=== PATIENT | female | born 2000 | race Caucasian/White ===

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

== ENCOUNTER 2018-02-01 12:37 | Outpatient (CLI) | payer BC, MEDICAID ==
[~2018-02-01] VITALS: Ht 175.3 cm; Wt 83.0 kg
[2018-02-01 13:10] VITALS: BP 133/68
--- NOTE | 2018-02-02 22:20 | Physician Query-Final Dx ---
CHERRIE BLAIR 02/02/18 2220: Clinic Account Progress/Dx Physician Query: Please give diagnosis Please provide diagnosis and weeks of gestation. Date of Service Feb 01, 2018 at 12:37 CHRIS WHEELER MD 02/03/18 0910: Clinic Account Progress/Dx DIAGNOSIS: Diagnosis 34 weeks gestation Pelvic pressure CHERRIE BLAIR Feb 02, 2018 22:20 CHRIS WHEELER MD Feb 03, 2018 09:10
== END 2018-02-01 14:20 | disposition home or self-care (01) ==
LOC: WSo 12:37 → LDRP 12:38 → WSo 14:20
PROVIDERS: ATTEND Family Medicine
DX: R10.2 Pelvic and perineal pain (principal); Z3A.34 34 weeks gestation of pregnancy
CPT/HCPCS: 99213

== ENCOUNTER 2018-02-03 16:46 | Outpatient (CLI) | payer BC, MEDICAID ==
[~2018-02-03] VITALS: Ht 175.3 cm; Wt 83.7 kg
[2018-02-03 17:15] VITALS: BP 131/62
--- NOTE | 2018-02-04 21:42 | Physician Query-Final Dx ---
CHERRIE BLAIR 02/04/18 2142: Clinic Account Progress/Dx Physician Query: Please give diagnosis Please provide diagnosis and weeks of gestation. Date of Service Feb 03, 2018 at 16:46 CHRIS WHEELER MD 02/05/18 1325: Clinic Account Progress/Dx DIAGNOSIS: Diagnosis 34 weeks gestation Possible leaking fluid CHERRIE BLAIR Feb 04, 2018 21:42 CHRIS WHEELER MD Feb 05, 2018 13:25
== END 2018-02-03 18:47 | disposition home or self-care (01) ==
LOC: WSo 16:46 → LDRP 16:47 → WSo 18:47
PROVIDERS: ATTEND Family Medicine
DX: O99.89 Other specified diseases and conditions complicating pregnancy, childbirth and the puerperium (principal); N89.8 Other specified noninflammatory disorders of vagina; Z3A.34 34 weeks gestation of pregnancy
CPT/HCPCS: 99214

== ENCOUNTER → 2018-02-09 | Outpatient (CLI) | payer BC, MEDICAID ==
--- NOTE | 2018-02-09 15:44 | Diagnostic Imaging Report ---
INDICATION: Evaluate growth and amniotic fluid index. TECHNIQUE: Multiple real-time grayscale images were obtained over the gravid uterus. COMPARISON: 10/24/2017. FINDINGS: There is a single live fetus in a cephalic presentation. heart rate was recorded at 144 beats per minute. Placenta is posterior. Amniotic fluid index is 10.5 cm. No complicating features are seen. Biometrical measurements are as follows: Biparietal 8.77 cm, age 35 weeks 3 days. Head circumference 31.52 cm, age 35 weeks 3 days. Abdominal circumference 33.49 cm, age 37 weeks 3 days. Femur length 6.82 cm, age 35 weeks 1 days. Sonographic estimate age: 35 weeks 6 days. Sonographic estimated date of delivery: 03/10/2018. Estimated Weight: 2921 gm (+/- 427 gm). LMP percentile: 72%. heart rate: 144 beats per minute. number: 1 of 1. IMPRESSION: Single live IUP at approximately 36 weeks gestational age demonstrating normal interval growth when compared with prior ultrasound. No complicating feature is seen. Dictated by: Dictated on workstation # [id number]
== END ==
LOC: RAD 12:48
PROVIDERS: ATTEND Family Medicine
DX: O16.3 Unspecified maternal hypertension, third trimester (principal); Z3A.36 36 weeks gestation of pregnancy
CPT/HCPCS: 76816

== ENCOUNTER 2018-03-15 08:15 | Inpatient (IN) | payer BC, MEDICAID ==
[~2018-03-15] VITALS: Ht 175.3 cm; Wt 83.7 kg
[2018-03-15] MEDS ORDERED: D5 LR IV SOLUTION 1,000 ML IV ONE (19:26)
[2018-03-15] MEDS: D5 LR IV SOLUTION 1,000 ML IV SCH (19:30)
[2018-03-15] MEDS ORDERED: LACTATED RINGERS 1,000 ML IV SCH (19:49)
--- OUTSIDE RECORDS SUMMARY | 2018-03-15 19:57 | XMS REPORT ---
Author Author MADONNA JOHNSON Organization [facility] Address [address] [place] [address] Care Team Providers Care [employer] Name Role Phone MADONNA JOHNSON Unavailable PROBLEMS Type Condition ICD9-CM Code RNP37-HZ Code Onset Dates Condition Status SNOMED Code Problem care, first in third trimester Z34.03 Active 618768384 Problem Elevated blood pressure affecting in third trimester, antepartum O16.3 Active 73989685 Problem Unspecified blood type, Rh negative Z67.91 Active 022609683 ALLERGIES Substance Reaction Event Type Date Status Sulfacetamide Sodium Unknown Drug Allergy Nov, Active ENCOUNTERS Encounter Location Date Diagnosis [facility] [id number] [place] [address] 42750- 7280 Feb, [facility] [address] [address] Feb, care, first in third trimester Z34.03 and 39 weeks gestation of Z3A.39 [place] [id number] [place] [address] 12268- 5149 Feb, care, first in third trimester Z34.03 ; Encounter for immunization Z23 and 39 weeks gestation of Z3A.39 [facility] [id number] [place] [address] 48284- 8742 Feb, [place] [id number] [place] [address] 61939- 1831 Feb, care, first in third trimester Z34.03 and 38 weeks gestation of Z3A.38 [place] [id number] [place] [address] 88550- 6378 Jan, Third trimester Z34.93 and 37 weeks gestation of Z3A.37 [place] [address] [place] [address] 02707- 8249 19 Jan, 2018 Third trimester Z34.93 ; 36 weeks gestation of Z3A.36 and Proteinuria affecting in third trimester O12.13 [place] [id number] [place] [address] 42937- 5189 13 Jan, 2018 [place] [id number] [place] [address] 66921- 6916 13 Jan, 2018 care, first in third trimester Z34.03 and 35 weeks gestation of Z3A.35 [place] [id number] [place] [address] 55410- 3074 11 Jan, 2018 [place] [id number] [place] [address] 64500- 8287 Jan, [place] [id number] [place] [address] 75882- 6925 05 Jan, 2018 care, first in third trimester Z34.03 ; 34 weeks gestation of Z3A.34 and Elevated blood pressure affecting in third trimester, antepartum O16.3 [place] [id number] [place] [address] 55605- 9272 Dec, Third trimester Z33.1 and 32 weeks gestation of Z3A.32 [place] [id number] [place] [address] 02781- 3005 Dec, [place] [id number] [place] [address] 90553- 8617 Dec, [place] [id number] [place] [address] 21233- 5062 Dec, 30 weeks gestation of Z3A.30 ; Elevated blood pressure affecting in third trimester, antepartum O16.3 ; Unspecified blood type, Rh negative Z67.91 ; Supervision of other high risk pregnancies, unspecified trimester O09.899 and Encounter for immunization Z23 [place] [address] [place] [address] Nov, 28 weeks gestation of Z3A.28 and Third trimester Z34.93 [place] [address] [address] 9[address] Nov, [place] [address] [address] 0885 Nov, care, first in second trimester Z34.02 and 25 weeks gestation of Z3A.25 [place] [address] [place] [address] 2547 Oct, [place] [id number] [place] [address] 65983- 6705 Oct, care, first in second trimester Z34.02 and 21 weeks gestation of Z3A.21 [place] [id number] [place] [address] 12257- 1698 September, Evaluate anatomy not seen on prior sonogram Z04.8 [place] [address] [place] [address] 89099- 6229 September, [place] [address] [place] [address] 43831- 8925 September, care, first in second trimester Z34.02 ; 17 weeks gestation of Z3A.17 and Urinary tract infection in mother during first trimester of O23.41 [place] [address] [place] [address] 00328- 5214 Aug, Other specified disorders of amniotic fluid and membranes, first trimester, not applicable or unspecified O41.8X10 ; Other antepartum hemorrhage, first trimester O46.8X1 and 12 weeks gestation of Z3A.12 [place] [address] [address] 1238 Aug, Urinary tract infection in mother during first trimester of O23.41 [place] [address] [place] [address] 79124- 5063 Aug, care, first in first trimester Z34.01 ; Urinary tract infection in mother during first trimester of O23.41 and 11 weeks gestation of Z3A.11 [place] [address] [place] [address] 64437- 1505 Jul, [place] [id number] [place] [address] 80446- 2950 Jul, care, first in first trimester Z34.01 and 7 weeks gestation of Z3A.01 [place] [id number] [place] [address] 16456- 9045 Jul, [place] [id number] [place] [address] 81148- 7018 Jun, Screening for deficiency anemia Z13.0 [place] [id number] [place] [address] 01856- 9092 Jun, [place] [id number] [place] [address] 32781- 1106 Jun, [place] [id number] [place] [address] 12445- 0591 Jun, [place] [id number] [place] [address] 55300- 6283 Jun, test positive Z32.01 [facility] [place] [id number] [place] [address] 99618 -4068 05 Jun, 2016 Cough R05 and Influenza A J10.1 [place] [id number] [place] [address] 66273- 3911 Jan, Encounter for immunization Z23 [place] [id number] [place] [address] 93922- 2784 Jan, Visit for TB skin test Z11.1 and Screening for tuberculosis Z11.1 [facility] [id number] [place] [address] 36201 -2018 Dec, Right ankle injury, initial encounter S99.911A [facility] [id number] [place] [address] 52678 -7106 Nov, Abscess L02.91 [facility] [id number] [place] [address] 31033- 4570 Jul, Microscopic hematuria R31.2 [facility] [address] 33332- 2849 Jun, Vomiting, unspecified R11.10 ; Viral syndrome B34.9 ; Microscopic hematuria R31.2 and Proteinuria R80.9 [place] [address] 12943- 4671 Aug, [facility] [address] 94966- 2647 Aug, [facility] [address] 38341- 8515 Feb, [facility] [address] 28185- 3860 Feb, [facility] [id number] [place] [address] 64230- 9675 May, [facility] [id number] [place] [address] 83829- 1375 May, [facility] [address] 72849- 9877 Aug, IMMUNIZATIONS No Known Immunizations SOCIAL HISTORY Never Assessed REASON FOR VISIT OB 2wk f/u-tcuppettRn PLAN OF CARE Activity Details Follow Up 2 Weeks Reason: VITAL SIGNS Height 70 in 2017-12-17 Weight 175.1 lbs 2017-12-17 Temperature 98.2 degrees Fahrenheit 2017-12-17 Heart Rate 92 bpm 2017-12-17 Respiratory Rate 20 2017-12-17 BMI 25.124 kg/m2 2017-12-17 Blood pressure systolic 108 mmHg 2017-12-17 Blood pressure diastolic 70 mmHg 2017-12-17 MEDICATIONS Medication Instructions Dosage Frequency Start Date End Date Duration Status Cetirizine HCl 10 MG Not-Taking Ferrous Sulfate 325 (65 Fe) MG Orally Once a day 1 tablet 24h Active Vitamins - (Dis) Active RESULTS Name Result Date Reference Range UA OB DIP (IN HOUSE) 2017-12-17 Glucose negative Protein negative PROCEDURES Procedure Date Ordered Result Body Site URINE-NO MICRO December 17, 2017 INSTRUCTIONS MEDICATIONS ADMINISTERED No Known Medications MEDICAL (GENERAL) HISTORY Type Description Date Hospitalization History Pneumonia 05/2000 Hospitalization History Heart Evaluation at [facility] 05/2009 Hospitalization History ER for hemmorrhaging 08/2017
--- OUTSIDE RECORDS SUMMARY | 2018-03-15 19:58 | XMS REPORT ---
Author Author CHRIS WHEELER [facility] Address [address] [place] [address] Care Team Providers Care Language Pathologist Name Role Phone CHRIS WHEELER Unavailable PROBLEMS Type Condition ICD9-CM Code [id number] Code Onset Dates Condition Status SNOMED Code Problem care, first in third trimester Z34.03 Active 836534876 Problem Elevated blood pressure affecting in third trimester, antepartum O16.3 Active 79823181 Problem Unspecified blood type, Rh negative Z67.91 Active 430453851 ALLERGIES No Information ENCOUNTERS Encounter Location Date Diagnosis [place] [address] [address]- 9220 15 Feb, 2018 care, first in third trimester Z34.03 [place] [address] 51938- 5611 11 Feb, 2018 care, first in third trimester Z34.03 ; Encounter for immunization Z23 and 39 weeks gestation of Z3A.39 [place] [address] [place] [id number] [place] [address] 61945- 8364 Feb, [place] [address] 13190- 8535 Feb, care, first in third trimester Z34.03 and 38 weeks gestation of Z3A.38 [place] [address] 66240- 3565 26 Jan, 2018 Third trimester Z34.93 and 37 weeks gestation of Z3A.37 [place] [address] [place] [id number] [place] [address] 11689- 1225 Jan, Third trimester Z34.93 ; 36 weeks gestation of Z3A.36 and Proteinuria affecting in third trimester O12.13 [place] [address] [place] [address] 71178- 0301 Jan, [place] [address] [place] [address] [id number] [place] [address] 13144- 6176 Jan, care, first in third trimester Z34.03 and 35 weeks gestation of Z3A.35 [place] [address] [address] [id number] [place] [address] 14646- 2635 Jan, [place] [address] [address] [id number] [place] [address] 40480- 0649 Jan, [place] [address] [address] [id number] [place] [address] 12582- 3340 Jan, care, first in third trimester Z34.03 ; 34 weeks gestation of Z3A.34 and Elevated blood pressure affecting in third trimester, antepartum O16.3 [place] [id number] [place] [address] 06912- 2823 Dec, Third trimester Z33.1 and 32 weeks gestation of Z3A.32 [place] [address] [id number] [place] [address] 73297- 1110 Dec, [place] [address] [id number] [place] [address] 85632- 6335 Dec, [place] [address] [id number] [place] [address] 25527- 1876 Dec, 30 weeks gestation of Z3A.30 ; Elevated blood pressure affecting in third trimester, antepartum O16.3 ; Unspecified blood type, Rh negative Z67.91 ; Supervision of other high risk pregnancies, unspecified trimester O09.899 and Encounter for immunization Z23 [place] [address] [id number] [place] [address] 81681- 0656 Nov, 28 weeks gestation of Z3A.28 and Third trimester Z34.93 [place] [address] [id number] [place] [address] 09715- 5357 Nov, [place] [address] [place] [id number] [address]- 0906 Nov, care, first in second trimester Z34.02 and 25 weeks gestation of Z3A.25 [place] [address] [address]- 8699 Oct, [place] [address] [address]- 5569 Oct, care, first in second trimester Z34.02 and 21 weeks gestation of Z3A.21 [place] [address] [address]- 1605 September, Evaluate anatomy not seen on prior sonogram Z04.8 [place] [address] [address]- 1943 September, [place] [address] [address]- 0961 September, care, first in second trimester Z34.02 ; 17 weeks gestation of Z3A.17 and Urinary tract infection in mother during first trimester of O23.41 [place] [address] [id number] [address]- 5287 Aug, Other specified disorders of amniotic fluid and membranes, first trimester, not applicable or unspecified O41.8X10 ; Other antepartum hemorrhage, first trimester O46.8X1 and 12 weeks gestation of Z3A.12 [place] [address] [id number] [address]- 7941 Aug, Urinary tract infection in mother during first trimester of O23.41 [place] [address] [address]- 6003 Aug, care, first in first trimester Z34.01 ; Urinary tract infection in mother during first trimester of O23.41 and 11 weeks gestation of Z3A.11 [place] [address] [place] [address] 08567- 8794 Jul, [facility] [place] [id number] [place] [address] 93690- 4077 Jul, care, first in first trimester Z34.01 and 7 weeks gestation of Z3A.01 [facility] [place] [address] [id number] [place] [address] 41861- 7822 Jul, [facility] [place] [address] [id number] [place] [address] 35600- 5509 Jun, Screening for deficiency anemia Z13.0 [place] [address] 35561- 0082 Jun, [place] [address] [place] [id number] [place] [address] 53337- 1984 Jun, [place] [address] [place] [address] [id number] [place] [address] 69971- 3580 Jun, [facility] [place] [address] [id number] [place] [address] 22950- 7726 14 Jun, 2017 test positive Z32.01 [facility] IN [place] [address] [place] [address] [id number] [place] [address] 10858 -3305 05 Jun, 2016 Cough R05 and Influenza A J10.1 [place] [address] [id number] [place] [address] 99047- 5922 Jan, Encounter for immunization Z23 [place] [address] [id number] [place] [address] 14192- 5114 Jan, Visit for TB skin test Z11.1 and Screening for tuberculosis Z11.1 [facility] [place] [address] [id number] [place] [address] 18145 -7318 Dec, Right ankle injury, initial encounter S99.911A [facility] [place] [address] [id number] [place] [address] 68758 -0467 Nov, Abscess L02.91 [place] [address] [address]- 9143 Jul, Microscopic hematuria R31.2 [place] [address] [id number] [place] [address] 05892- 2644 29 Jun, 2015 Vomiting, unspecified R11.10 ; Viral syndrome B34.9 ; Microscopic hematuria R31.2 and Proteinuria R80.9 [place] [address] [id number] [place] [address] 48559- 4683 Aug, [place] [address] [id number] [place] [address] 56395- 0810 Aug, [place] [address] [id number] [place] [address] 32420- 9952 Feb, [place] [address] 41666- 2574 Feb, [place] [address] [place] [address] [id number] [place] [address] 92705- 2286 May, [place] [address] [place] [address] [id number] [place] [address] 11665- 6257 May, [place] [address] [place] [address] [id number] [place] [address] 45178- 9357 Aug, IMMUNIZATIONS No Known Immunizations SOCIAL HISTORY Never Assessed REASON FOR VISIT OB 1wk f/u, third trimester, urine ob dip, flu shot to be given at her place of employment, cervix check-[place]woods PLAN OF CARE Activity Details Follow Up 1 Week Reason: VITAL SIGNS Height 70 in 2018-03-05 Weight 189 lbs 2018-03-05 Temperature 98.6 degrees Fahrenheit 2018-03-05 Heart Rate 112 bpm 2018-03-05 Respiratory Rate 20 2018-03-05 BMI 27.119 kg/m2 2018-03-05 Blood pressure systolic 124 mmHg 2018-03-05 Blood pressure diastolic 68 mmHg 2018-03-05 MEDICATIONS Medication Instructions Dosage Frequency Start Date End Date Duration Status Ferrous Sulfate 325 (65 Fe) MG Orally Once a day 1 tablet 24h Active Vitamins - (Dis) Active Zofran 4 MG Orally every 4 hours 1 tablet as needed 4h Dec, Active RESULTS Name Result Date Reference Range UA OB DIP (IN HOUSE) 2018-03-05 Glucose negative Protein trace PROCEDURES Procedure Date Ordered Result Body Site URINE-NO MICRO Mar 05, 2018 INSTRUCTIONS MEDICATIONS ADMINISTERED No Known Medications MEDICAL (GENERAL) HISTORY Type Description Date Hospitalization History Pneumonia 05/2000 Hospitalization History Heart Evaluation at [facility] 05/2009 Hospitalization History ER for hemmorrhaging 08/2017
--- OUTSIDE RECORDS SUMMARY | 2018-03-15 19:58 | XMS REPORT ---
Author Author CHRIS WHEELER [facility] Address [address] [place] [address] Care Team Providers Care Group Cio Name Role Phone CHRIS WHEELER Unavailable PROBLEMS Type Condition ICD9-CM Code VMZ37-ZQ Code Onset Dates Condition Status SNOMED Code Problem care, first in third trimester Z34.03 Active 797413070 Problem Elevated blood pressure affecting in third trimester, antepartum O16.3 Active 28385985 Problem Unspecified blood type, Rh negative Z67.91 Active 025227152 ALLERGIES No Information ENCOUNTERS Encounter Location Date Diagnosis [place] [id number] [place] [address] 91722- 5626 Feb, [place] [id number] [place] [address] 94935- 9305 Feb, care, first in third trimester Z34.03 and Encounter for immunization Z23 [place] [id number] [place] [address] 44437- 6657 Feb, [place] [id number] [place] [address] 89911- 4362 Feb, care, first in third trimester Z34.03 and 38 weeks gestation of Z3A.38 [place] [id number] [place] [address] 80721- 1201 Jan, Third trimester Z34.93 and 37 weeks gestation of Z3A.37 [place] [id number] [place] [address] 64206- 2426 Jan, Third trimester Z34.93 ; 36 weeks gestation of Z3A.36 and Proteinuria affecting in third trimester O12.13 [place] [address] [place] [address]- 4388 Jan, [facility] [place] [address] [address] 39[address] Jan, care, first in third trimester Z34.03 and 35 weeks gestation of Z3A.35 [facility] [place] [address] [address] 4882 Jan, [facility] [place] [id number] [place] [address] 79983- 4763 Jan, [facility] [place] [id number] [place] [address] 99326- 6934 Jan, care, first in third trimester Z34.03 ; 34 weeks gestation of Z3A.34 and Elevated blood pressure affecting in third trimester, antepartum O16.3 [place] [id number] [place] [address] 62213- 6580 Dec, Third trimester Z33.1 and 32 weeks gestation of Z3A.32 [place] [id number] [place] [address] 23641- 1128 Dec, [place] [id number] [place] [address] 99519- 8408 Dec, [place] [address] [place] [address] 25157- 5683 Dec, 30 weeks gestation of Z3A.30 ; Elevated blood pressure affecting in third trimester, antepartum O16.3 ; Unspecified blood type, Rh negative Z67.91 ; Supervision of other high risk pregnancies, unspecified trimester O09.899 and Encounter for immunization Z23 [facility] [place] [id number] [place] [address] 40800- 5465 Nov, 28 weeks gestation of Z3A.28 and Third trimester Z34.93 [facility] [place] [address] [address] 3845 Nov, [place] [id number] [address] 5678 10 Nov, 2017 care, first in second trimester Z34.02 and 25 weeks gestation of Z3A.25 [place] [address] [address]- 8306 Oct, [place] [address] [address]- 5135 Oct, care, first in second trimester Z34.02 and 21 weeks gestation of Z3A.21 [place] [address] [address] 0360 September, Evaluate anatomy not seen on prior sonogram Z04.8 [place] [address] [address]- 7573 September, [place] [address] [address]- 4250 September, care, first in second trimester Z34.02 ; 17 weeks gestation of Z3A.17 and Urinary tract infection in mother during first trimester of O23.41 [place] [address] [address]- 2015 10 Aug, 2017 Other specified disorders of amniotic fluid and membranes, first trimester, not applicable or unspecified O41.8X10 ; Other antepartum hemorrhage, first trimester O46.8X1 and 12 weeks gestation of Z3A.12 [place] [address] [address]- 4794 Aug, Urinary tract infection in mother during first trimester of O23.41 [place] [address] [address]- 7942 03 Aug, 2017 care, first in first trimester Z34.01 ; Urinary tract infection in mother during first trimester of O23.41 and 11 weeks gestation of Z3A.11 [place] [id number] [address]- 1747 Jul, [facility] [place] [id number] [place] [address] 87397- 2491 Jul, care, first in first trimester Z34.01 and 7 weeks gestation of Z3A.01 [facility] [place] [id number] [place] [address] 39789- 2952 Jul, [facility] [place] [address] 85847- 2245 Jun, Screening for deficiency anemia Z13.0 [place] [address] 71592- 0778 Jun, [place] [address] 16493- 8130 Jun, [place] [address] 34295- 4932 Jun, [place] [address] 02127- 9193 Jun, test positive Z32.01 [facility] [address] 74899 -4986 05 Jun, 2016 Cough R05 and Influenza A J10.1 [place] [id number] [place] [address] 71526- 9650 Jan, Encounter for immunization Z23 [place] [address] 59427- 5762 Jan, Visit for TB skin test Z11.1 and Screening for tuberculosis Z11.1 [facility] [address] 52234 -7767 Dec, Right ankle injury, initial encounter S99.911A [facility] [id number] [place] [address] 11732 -5919 Nov, Abscess L02.91 [facility] [place] [address] 78094- 9963 Jul, Microscopic hematuria R31.2 [place] [address], [place] [address]- 2417 Jun, Vomiting, unspecified R11.10 ; Viral syndrome B34.9 ; Microscopic hematuria R31.2 and Proteinuria R80.9 [place] [address] [address]- 9255 Aug, [place] [id number] [place] [address] 37796- 8357 Aug, [place] [id number] [place] [address] 29773- 0807 Feb, [place] [id number] [place] [address] 90191- 6741 Feb, [place] [id number] [place] [address] 07246- 3207 May, [place] [id number] [place] [address] 27530- 8624 May, [place] [id number] [place] [address] 47698- 7929 Aug, IMMUNIZATIONS No Known Immunizations SOCIAL HISTORY Never Assessed REASON FOR VISIT OB 1wk f/u, ob dip, cervix check-awoods PLAN OF CARE Activity Details Follow Up 1 Week, 1 Week Reason: VITAL SIGNS Height 70 in 2018-02-25 Weight 188 lbs 2018-02-25 Temperature 98.6 degrees Fahrenheit 2018-02-25 Heart Rate 110 bpm 2018-02-25 Respiratory Rate 20 2018-02-25 BMI 26.975 kg/m2 2018-02-25 Blood pressure systolic 124 mmHg 2018-02-25 Blood pressure diastolic 74 mmHg 2018-02-25 MEDICATIONS Medication Instructions Dosage Frequency Start Date End Date Duration Status Vitamins - (Dis) Active Ferrous Sulfate 325 (65 Fe) MG Orally Once a day 1 tablet 24h Active Zofran 4 MG Orally every 4 hours 1 tablet as needed 4h Dec, Active RESULTS Name Result Date Reference Range UA OB DIP (IN HOUSE) 2018-02-25 Glucose negative Protein trace PROCEDURES Procedure Date Ordered Result Body Site URINE-NO MICRO Feb 25, 2018 INSTRUCTIONS MEDICATIONS ADMINISTERED No Known Medications MEDICAL (GENERAL) HISTORY Type Description Date Hospitalization History Pneumonia 05/2000 Hospitalization History Heart Evaluation at [facility] 05/2009 Hospitalization History ER for hemmorrhaging 08/2017
--- OUTSIDE RECORDS SUMMARY | 2018-03-15 19:58 | XMS REPORT ---
Author Author CHRIS WHEELER [facility] Address [address] [place] [address] Care Team Providers Care Scouring Machine Tender Name Role Phone CHRIS WHEELER Unavailable PROBLEMS ALLERGIES No Information ENCOUNTERS IMMUNIZATIONS No Known Immunizations SOCIAL HISTORY No smoking Hx information available REASON FOR VISIT PLAN OF CARE VITAL SIGNS MEDICATIONS RESULTS No Results PROCEDURES INSTRUCTIONS MEDICATIONS ADMINISTERED No Known Medications MEDICAL (GENERAL) HISTORY
--- OUTSIDE RECORDS SUMMARY | 2018-03-15 19:58 | XMS REPORT ---
Author Author LIAM CHIRS [facility] Address [address] [place] [address] Care Team Providers Care Field Inspector Name Role Phone CHRIS WHEELER Unavailable PROBLEMS Type Condition ICD9-CM Code DTY11-RS Code Onset Dates Condition Status SNOMED Code Problem care, first in third trimester Z34.03 Active 642480705 Problem Elevated blood pressure affecting in third trimester, antepartum O16.3 Active 15690297 Problem Unspecified blood type, Rh negative Z67.91 Active 223057743 ALLERGIES No Information ENCOUNTERS Encounter Location Date Diagnosis [place] [id number] [place] [address] 45183- 8667 Feb, [place] [id number] [place] [address] 98481- 1976 Feb, [place] [address] 08126- 4347 Feb, [place] [id number] [place] [address] 66173- 1848 Feb, care, first in third trimester Z34.03 and 38 weeks gestation of Z3A.38 [place] [id number] [place] [address] 09121- 4237 Jan, Third trimester Z34.93 and 37 weeks gestation of Z3A.37 [place] [address] 43678- 9557 19 Jan, 2018 Third trimester Z34.93 ; 36 weeks gestation of Z3A.36 and Proteinuria affecting in third trimester O12.13 [place] [id number] [place] [address] 93404- 3220 Jan, [place] [address] [address]- 8353 Jan, care, first in third trimester Z34.03 and 35 weeks gestation of Z3A.35 [place] [address] [address]- 9037 Jan, [place] [id number] [address]- 5880 Jan, [place] [id number] [address]- 5219 Jan, care, first in third trimester Z34.03 ; 34 weeks gestation of Z3A.34 and Elevated blood pressure affecting in third trimester, antepartum O16.3 [place] [address] [address]- 0632 Dec, Third trimester Z33.1 and 32 weeks gestation of Z3A.32 [place] [id number] [address]- 3252 Dec, [place] [id number] [place] [address] 88321- 2355 Dec, [place] [address] [address]- 9697 Dec, 30 weeks gestation of Z3A.30 ; Elevated blood pressure affecting in third trimester, antepartum O16.3 ; Unspecified blood type, Rh negative Z67.91 ; Supervision of other high risk pregnancies, unspecified trimester O09.899 and Encounter for immunization Z23 [place] [address] [address]- 3838 Nov, 28 weeks gestation of Z3A.28 and Third trimester Z34.93 [place] [id number] [address]- 3582 Nov, [place] [address] [address]- 0755 Nov, care, first in second trimester Z34.02 and 25 weeks gestation of Z3A.25 [place] [address] [address]- 7927 Oct, [place] [address] [address]- 0731 Oct, care, first in second trimester Z34.02 and 21 weeks gestation of Z3A.21 [place] [id number] [address]- 2420 September, Evaluate anatomy not seen on prior sonogram Z04.8 [place] [id number] [place] [address] 39291- 2699 September, [place] [address] [address]- 4798 September, care, first in second trimester Z34.02 ; 17 weeks gestation of Z3A.17 and Urinary tract infection in mother during first trimester of O23.41 [place] [address] [address]- 0371 10 Aug, 2017 Other specified disorders of amniotic fluid and membranes, first trimester, not applicable or unspecified O41.8X10 ; Other antepartum hemorrhage, first trimester O46.8X1 and 12 weeks gestation of Z3A.12 [place] [address] [address]- 8496 Aug, Urinary tract infection in mother during first trimester of O23.41 [place] [id number] [address]- 3270 03 Aug, 2017 care, first in first trimester Z34.01 ; Urinary tract infection in mother during first trimester of O23.41 and 11 weeks gestation of Z3A.11 [place] [address] [address]- 7642 Jul, [place] [id number] [place] [address] 48874- 4683 Jul, care, first in first trimester Z34.01 and 7 weeks gestation of Z3A.01 [facility] [id number] [place] [address] 91759- 1620 Jul, [facility] [id number] [place] [address] 71509- 7046 Jun, Screening for deficiency anemia Z13.0 [facility] [address] 22271- 8386 Jun, [place] [address] 07745- 1409 Jun, [facility] [address] 32616- 2410 Jun, [place] [id number] [place] [address] 48761- 7924 14 Jun, 2017 test positive Z32.01 [facility] [id number] [place] [address] 50730 -4587 05 Jun, 2016 Cough R05 and Influenza A J10.1 [place] [id number] [place] [address] 35442- 6237 Jan, Encounter for immunization Z23 [place] [id number] [place] [address] 16875- 8490 Jan, Visit for TB skin test Z11.1 and Screening for tuberculosis Z11.1 [facility] [id number] [place] [address] 70467 -2155 Dec, Right ankle injury, initial encounter S99.911A [facility] [address] 58491 -6468 Nov, Abscess L02.91 [facility] [id number] [place] [address] 53515- 0868 Jul, Microscopic hematuria R31.2 [facility] [address] [address]- 8827 Jun, Vomiting, unspecified R11.10 ; Viral syndrome B34.9 ; Microscopic hematuria R31.2 and Proteinuria R80.9 [facility] [address] [address]- 1076 14 Aug, 2014 [place] [id number] [place] [address] 79547- 9295 Aug, [facility] [id number] [place] [address] 41368- 6952 Feb, [place] [id number] [place] [address] 11184- 3423 Feb, [place] [address] [place] [address] 44837- 0702 May, [place] [id number] [place] [address] 10519- 3280 May, [place] [address] [address]- 0802 Aug, IMMUNIZATIONS No Known Immunizations SOCIAL HISTORY Never Assessed REASON FOR VISIT PLAN OF CARE VITAL SIGNS MEDICATIONS Unknown Medications RESULTS No Results PROCEDURES No Known procedures INSTRUCTIONS MEDICATIONS ADMINISTERED No Known Medications MEDICAL (GENERAL) HISTORY Type Description Date Hospitalization History Pneumonia 05/2000 Hospitalization History Heart Evaluation at [facility] 05/2009 Hospitalization History ER for hemmorrhaging 08/2017
--- OUTSIDE RECORDS SUMMARY | 2018-03-15 19:58 | XMS REPORT ---
Author Author LIAM CHRIS [facility] Address [address] [place] [address] Care Team Providers Care Aco Coordinator Name Role Phone CHRIS WHEELER Unavailable PROBLEMS Type Condition ICD9-CM Code JAY38-OK Code Onset Dates Condition Status SNOMED Code Problem care, first in third trimester Z34.03 Active 736341798 Problem Elevated blood pressure affecting in third trimester, antepartum O16.3 Active 91025814 Problem Unspecified blood type, Rh negative Z67.91 Active 054497046 ALLERGIES No Information ENCOUNTERS Encounter Location Date Diagnosis [place] [id number] [place] [address] 47346- 6112 Feb, [place] [id number] [place] [address] 35964- 3421 Feb, [place] [address] 27132- 4786 Feb, [place] [id number] [place] [address] 32391- 4911 Feb, care, first in third trimester Z34.03 and 38 weeks gestation of Z3A.38 [place] [id number] [place] [address] 06654- 4136 Jan, Third trimester Z34.93 and 37 weeks gestation of Z3A.37 [place] [address] 38441- 7380 19 Jan, 2018 Third trimester Z34.93 ; 36 weeks gestation of Z3A.36 and Proteinuria affecting in third trimester O12.13 [place] [id number] [place] [address] 20236- 2615 Jan, [place] [address], [place] [address]- 7689 Jan, care, first in third trimester Z34.03 and 35 weeks gestation of Z3A.35 [place] [address], [place] [address]- 9661 Jan, [place] [id number], [place] [address]- 2848 Jan, [place] [id number], [place] [address]- 2119 Jan, care, first in third trimester Z34.03 ; 34 weeks gestation of Z3A.34 and Elevated blood pressure affecting in third trimester, antepartum O16.3 [place] [address], [place] [address]- 6406 Dec, Third trimester Z33.1 and 32 weeks gestation of Z3A.32 [place] [id number], [place] [address]- 1264 Dec, [place] [id number] [place] [address] 33593- 9718 Dec, [place] [address], [place] [address]- 2938 Dec, 30 weeks gestation of Z3A.30 ; Elevated blood pressure affecting in third trimester, antepartum O16.3 ; Unspecified blood type, Rh negative Z67.91 ; Supervision of other high risk pregnancies, unspecified trimester O09.899 and Encounter for immunization Z23 [place] [address], [place] [address]- 2184 Nov, 28 weeks gestation of Z3A.28 and Third trimester Z34.93 [place] [id number], [place] [address]- 8060 Nov, [place] [address], [place] [address]- 1450 Nov, care, first in second trimester Z34.02 and 25 weeks gestation of Z3A.25 [place] [address], [place] [address]- 2111 Oct, [place] [address], [place] [address]- 9725 Oct, care, first in second trimester Z34.02 and 21 weeks gestation of Z3A.21 [place] [id number], [place] [address]- 5424 September, Evaluate anatomy not seen on prior sonogram Z04.8 [place] [id number] [place] [address] 25798- 7862 September, [place] [address], [place] [address]- 0192 September, care, first in second trimester Z34.02 ; 17 weeks gestation of Z3A.17 and Urinary tract infection in mother during first trimester of O23.41 [place] [address], [place] [address]- 8741 10 Aug, 2017 Other specified disorders of amniotic fluid and membranes, first trimester, not applicable or unspecified O41.8X10 ; Other antepartum hemorrhage, first trimester O46.8X1 and 12 weeks gestation of Z3A.12 [place] [address], [place] [address]- 9526 Aug, Urinary tract infection in mother during first trimester of O23.41 [place] [id number], [place] [address]- 8590 03 Aug, 2017 care, first in first trimester Z34.01 ; Urinary tract infection in mother during first trimester of O23.41 and 11 weeks gestation of Z3A.11 [place] [address], [place] [address]- 1603 Jul, [place] [id number] [place] [address] 40298- 6601 Jul, care, first in first trimester Z34.01 and 7 weeks gestation of Z3A.01 [facility] [id number] [place] [address] 35896- 4721 Jul, [facility] [id number] [place] [address] 75520- 7550 Jun, Screening for deficiency anemia Z13.0 [facility] [address] 35109- 5179 Jun, [place] [address] 94289- 9932 Jun, [facility] [address] 53993- 9850 Jun, [place] [id number] [place] [address] 38402- 5163 14 Jun, 2017 test positive Z32.01 [facility] [id number] [place] [address] 99271 -5754 05 Jun, 2016 Cough R05 and Influenza A J10.1 [place] [id number] [place] [address] 76553- 8913 Jan, Encounter for immunization Z23 [place] [id number] [place] [address] 37107- 4735 Jan, Visit for TB skin test Z11.1 and Screening for tuberculosis Z11.1 [facility] [id number] [place] [address] 68869 -6040 Dec, Right ankle injury, initial encounter S99.911A [facility] [address] 34742 -2590 Nov, Abscess L02.91 [facility] [id number] [place] [address] 22150- 9305 Jul, Microscopic hematuria R31.2 [facility] [address], [place] [address]- 0632 Jun, Vomiting, unspecified R11.10 ; Viral syndrome B34.9 ; Microscopic hematuria R31.2 and Proteinuria R80.9 [facility] [address], [place] [address]- 3815 14 Aug, 2014 [place] [id number] [place] [address] 58238- 8766 Aug, [facility] [id number] [place] [address] 12428- 7520 Feb, [place] [id number] [place] [address] Feb, [place] [id number] [place] [phone] May, [place] [address] [id number] [place] [phone] May, [place] [id number], [place] [address] Aug, IMMUNIZATIONS No Known Immunizations SOCIAL HISTORY Never Assessed REASON FOR VISIT PLAN OF CARE VITAL SIGNS MEDICATIONS Unknown Medications RESULTS No Results PROCEDURES No Known procedures INSTRUCTIONS MEDICATIONS ADMINISTERED No Known Medications MEDICAL (GENERAL) HISTORY Type Description Date Hospitalization History Pneumonia 05/2000 Hospitalization History Heart Evaluation at [facility] 05/2009 Hospitalization History ER for hemmorrhaging 08/2017
--- OUTSIDE RECORDS SUMMARY | 2018-03-15 19:58 | XMS REPORT ---
Author Author LIAM CHRIS [facility] Address [address] [place] [address] Care Team Providers Care Window/Distribution Clerk Name Role Phone CHRIS WHEELER Unavailable PROBLEMS Type Condition ICD9-CM Code NBH00-TO Code Onset Dates Condition Status SNOMED Code Problem care, first in third trimester Z34.03 Active 645202482 Problem Elevated blood pressure affecting in third trimester, antepartum O16.3 Active 66481790 Problem Unspecified blood type, Rh negative Z67.91 Active 678020815 ALLERGIES No Information ENCOUNTERS Encounter Location Date Diagnosis [place] [id number] [place] [address] 95378- 1258 Feb, [place] [id number] [place] [address] 45625- 6587 Feb, [place] [address] 36652- 3125 Feb, [place] [id number] [place] [address] 59629- 5646 Feb, care, first in third trimester Z34.03 and 38 weeks gestation of Z3A.38 [place] [id number] [place] [address] 05848- 8772 Jan, Third trimester Z34.93 and 37 weeks gestation of Z3A.37 [place] [address] 31657- 7034 19 Jan, 2018 Third trimester Z34.93 ; 36 weeks gestation of Z3A.36 and Proteinuria affecting in third trimester O12.13 [place] [id number] [place] [address] 66176- 0860 Jan, [place] [address] [address] 4[address] Jan, care, first in third trimester Z34.03 and 35 weeks gestation of Z3A.35 [place] [address], [place] [address] 1918 Jan, [place] [address] [address] 0508 Jan, [place] [id number] [address] 3749 Jan, care, first in third trimester Z34.03 ; 34 weeks gestation of Z3A.34 and Elevated blood pressure affecting in third trimester, antepartum O16.3 [place] [address], [place] [address]- 6181 Dec, Third trimester Z33.1 and 32 weeks gestation of Z3A.32 [place] [id number] [address]- 6392 Dec, [place] [id number] [place] [address] 37243- 8311 Dec, [place] [address], [place] [address]- 9670 Dec, 30 weeks gestation of Z3A.30 ; Elevated blood pressure affecting in third trimester, antepartum O16.3 ; Unspecified blood type, Rh negative Z67.91 ; Supervision of other high risk pregnancies, unspecified trimester O09.899 and Encounter for immunization Z23 [place] [address], [place] [address] 7233 Nov, 28 weeks gestation of Z3A.28 and Third trimester Z34.93 [place] [address] [address]- 3838 Nov, [place] [address], [place] [address]- 2272 Nov, care, first in second trimester Z34.02 and 25 weeks gestation of Z3A.25 [place] [address], [place] [address]- 6166 Oct, [place] [address], [place] [address]- 0557 Oct, care, first in second trimester Z34.02 and 21 weeks gestation of Z3A.21 [place] [id number] [address]- 6861 September, Evaluate anatomy not seen on prior sonogram Z04.8 [place] [address] [id number] [place] [address] 58325- 7281 September, [place] [address], [place] [address]- 0572 September, care, first in second trimester Z34.02 ; 17 weeks gestation of Z3A.17 and Urinary tract infection in mother during first trimester of O23.41 [place] [address], [place] [address]- 0157 10 Aug, 2017 Other specified disorders of amniotic fluid and membranes, first trimester, not applicable or unspecified O41.8X10 ; Other antepartum hemorrhage, first trimester O46.8X1 and 12 weeks gestation of Z3A.12 [place] [address], [place] [address]- 1453 Aug, Urinary tract infection in mother during first trimester of O23.41 [place] [address] [place] [id number], [place] [address]- 0932 03 Aug, 2017 care, first in first trimester Z34.01 ; Urinary tract infection in mother during first trimester of O23.41 and 11 weeks gestation of Z3A.11 [place] [address], [place] [address]- 5632 Jul, [place] [id number] [place] [address] 48500- 6988 Jul, care, first in first trimester Z34.01 and 7 weeks gestation of Z3A.01 [facility] [id number] [place] [address] 02758- 5763 Jul, [facility] [id number] [place] [address] 76986- 3785 Jun, Screening for deficiency anemia Z13.0 [facility] [address] 34408- 0871 Jun, [place] [address] 62304- 1209 Jun, [facility] [address] 68137- 0419 Jun, [place] [address] [id number] [place] [address] 13184- 1294 14 Jun, 2017 test positive Z32.01 [facility] [id number] [place] [address] 69814 -8890 05 Jun, 2016 Cough R05 and Influenza A J10.1 [place] [id number] [place] [address] 15062- 4913 Jan, Encounter for immunization Z23 [place] [id number] [place] [address] 51155- 8414 Jan, Visit for TB skin test Z11.1 and Screening for tuberculosis Z11.1 [facility] [id number] [place] [address] 40563 -2198 Dec, Right ankle injury, initial encounter S99.911A [facility] [address] 31720 -0602 Nov, Abscess L02.91 [facility] [id number] [place] [address] 02219- 9863 Jul, Microscopic hematuria R31.2 [place] [address], [place] [address]- 1213 Jun, Vomiting, unspecified R11.10 ; Viral syndrome B34.9 ; Microscopic hematuria R31.2 and Proteinuria R80.9 [place] [address], [place] [address]- 9564 14 Aug, 2014 [place] [id number] [place] [address] 00541- 1084 Aug, [place] [id number] [place] [address] 28427- 4758 Feb, [place] [id number] [place] [address] 64396- 6730 Feb, [place] [id number] [place] [address] 43129- 1843 May, [place] [id number] [place] [address] 63126- 7988 May, [place] [address] [place] [address] 33497- 7862 Aug, IMMUNIZATIONS No Known Immunizations SOCIAL HISTORY Never Assessed REASON FOR VISIT OB 1wk f/u, OB Urine dip, cervix check-awoods PLAN OF CARE Activity Details Follow Up 1 Week, 1 Week Reason: VITAL SIGNS Height 70 in 2018-02-18 Weight 189.9 lbs 2018-02-18 Temperature 98.2 degrees Fahrenheit 2018-02-18 Heart Rate 114 bpm 2018-02-18 Respiratory Rate 20 2018-02-18 BMI 27.248 kg/m2 2018-02-18 Blood pressure systolic 130 mmHg 2018-02-18 Blood pressure diastolic 72 mmHg 2018-02-18 MEDICATIONS Medication Instructions Dosage Frequency Start Date End Date Duration Status Ferrous Sulfate 325 (65 Fe) MG Orally Once a day 1 tablet 24h Active Zofran 4 MG Orally every 4 hours 1 tablet as needed 4h Dec, Active Vitamins - (Dis) Active RESULTS Name Result Date Reference Range UA OB DIP (IN HOUSE) 2018-02-18 Glucose negative Protein trace PROCEDURES Procedure Date Ordered Result Body Site URINE-NO MICRO Feb 18, 2018 INSTRUCTIONS MEDICATIONS ADMINISTERED No Known Medications MEDICAL (GENERAL) HISTORY Type Description Date Hospitalization History Pneumonia 05/2000 Hospitalization History Heart Evaluation at [facility] 05/2009 Hospitalization History ER for hemmorrhaging 08/2017
--- OUTSIDE RECORDS SUMMARY | 2018-03-15 19:59 | XMS REPORT ---
Author Author LIAM CHRIS [facility] Address [address] [place] [address] Care Team Providers Care Vendor Quality Supervisor Name Role Phone LIAMALAINACHRIS Unavailable PROBLEMS Type Condition ICD9-CM Code [id number] Code Onset Dates Condition Status SNOMED Code Problem care, first in third trimester Z34.03 Active 982549169 Problem Elevated blood pressure affecting in third trimester, antepartum O16.3 Active 90593373 Problem Abscess L02.91 Active 287917305 Problem Unspecified blood type, Rh negative Z67.91 Active 852432712 ALLERGIES Substance Reaction Event Type Date Status Sulfacetamide Sodium Unknown Drug Allergy Jan, Active ENCOUNTERS Encounter Location Date Diagnosis [place] [id number] [place] [address] 93569- 7497 Feb, [place] [address] [id number] [place] [address] 30330- 6540 Jan, Third trimester Z34.93 [place] [address] [id number] [place] [address] 11869- 0903 19 Jan, 2018 Third trimester Z34.93 ; 36 weeks gestation of Z3A.36 and Proteinuria affecting in third trimester O12.13 [place] [id number] [place] [address] 30395- 1690 13 Jan, 2018 care, first in third trimester Z34.03 and 35 weeks gestation of Z3A.35 [place] [id number] [place] [address] 24286- 0748 Jan, [place] [address] [id number] [place] [address] 25141- 5823 Jan, [place] [address] [id number] [place] [address] 03956- 8169 Jan, care, first in third trimester Z34.03 ; 34 weeks gestation of Z3A.34 and Elevated blood pressure affecting in third trimester, antepartum O16.3 [place] [id number] [place] [address] 38002- 7751 Dec, Third trimester Z33.1 and 32 weeks gestation of Z3A.32 [place] [id number] [place] [address] 02117- 3953 Dec, [place] [address] [id number] [place] [address] 77459- 1648 Dec, [place] [address] [id number] [place] [address] 62357- 4313 Dec, 30 weeks gestation of Z3A.30 ; Elevated blood pressure affecting in third trimester, antepartum O16.3 ; Unspecified blood type, Rh negative Z67.91 ; Supervision of other high risk pregnancies, unspecified trimester O09.899 and Encounter for immunization Z23 [place] [address] [place] [address] 38412- 3214 Nov, 28 weeks gestation of Z3A.28 and Third trimester Z34.93 [place] [id number] [place] [address] 84133- 2375 Nov, [place] [id number] [place] [address] 93487- 2703 Nov, care, first in second trimester Z34.02 and 25 weeks gestation of Z3A.25 [place] [address] [address]- 6156 Oct, [place] [id number] [place] [address] 91237- 4427 Oct, care, first in second trimester Z34.02 and 21 weeks gestation of Z3A.21 [place] [id number] [place] [address] 38487- 3706 September, Evaluate anatomy not seen on prior sonogram Z04.8 [place] [address] [address]- 7474 September, [place] [address] [place] [address] 55037- 1566 September, care, first in second trimester Z34.02 ; 17 weeks gestation of Z3A.17 and Urinary tract infection in mother during first trimester of O23.41 [place] [address] [address]- 7457 Aug, Other specified disorders of amniotic fluid and membranes, first trimester, not applicable or unspecified O41.8X10 ; Other antepartum hemorrhage, first trimester O46.8X1 and 12 weeks gestation of Z3A.12 [place] [address] [address]- 6077 Aug, Urinary tract infection in mother during first trimester of O23.41 [place] [address] [address]- 9123 03 Aug, 2017 care, first in first trimester Z34.01 ; Urinary tract infection in mother during first trimester of O23.41 and 11 weeks gestation of Z3A.11 [place] [address] [address]- 4285 Jul, [place] [address] [address]- 9840 Jul, care, first in first trimester Z34.01 and 7 weeks gestation of Z3A.01 [place] [address] [place] [address] 97222- 2906 Jul, [place] [id number] [place] [address] 53309- 6107 Jun, Screening for deficiency anemia Z13.0 [place] [id number] [place] [address] 34141- 8337 Jun, [facility] [id number] [place] [address] 61494- 2903 Jun, [place] [address] 11985- 6688 15 Jun, 2017 [place] [address] 40480- 0201 Jun, test positive Z32.01 [facility] [place] [address] 24995 -3417 05 Jun, 2016 Cough R05 and Influenza A J10.[address] 86765- 6808 30 Jan, 2016 Encounter for immunization Z23 [address] 72003- 6234 Jan, Visit for TB skin test Z11.1 and Screening for tuberculosis Z11.1 [facility] [place] [address] 31634 -4275 Dec, Right ankle injury, initial encounter S99.911A [facility] [place] [address] 04800 -6071 Nov, Abscess L02.91 [place] [id number] [place] [address] 22009- 3530 Jul, Microscopic hematuria R31.[address] 44937- 0933 29 Jun, 2015 Vomiting, unspecified R11.10 ; Viral syndrome B34.9 ; Microscopic hematuria R31.2 and Proteinuria R80.[address] 06959- 2701 Aug, [place] [id number] [place] [address] 04185- 2115 Aug, [place] [address] [place] [id number] [address]- 4726 Feb, [facility] [address] [facility] [id number] [address]- 4508 Feb, [facility] [address] [facility] [id number] [address]- 0913 May, [facility] [address] [facility] [id number] [address]- 5081 May, [facility] [address] [facility] [id number] 1616 Aug, IMMUNIZATIONS No Known Immunizations SOCIAL HISTORY Never Assessed REASON FOR VISIT OB 2wk f/u-----DBennettRN PLAN OF CARE Activity Details Follow Up 2 Weeks, 2 Weeks Reason: VITAL SIGNS Height 70 in 2018-01-28 Weight 182 lbs 2018-01-28 Temperature 98.5 degrees Fahrenheit 2018-01-28 Heart Rate 90 bpm 2018-01-28 Respiratory Rate 20 2018-01-28 BMI 26.114 kg/m2 2018-01-28 Blood pressure systolic 130 mmHg 2018-01-28 Blood pressure diastolic 72 mmHg 2018-01-28 MEDICATIONS Medication Instructions Dosage Frequency Start Date End Date Duration Status Zofran 4 MG Orally every 4 hours 1 tablet as needed 4h Dec, Active Ferrous Sulfate 325 (65 Fe) MG Orally Once a day 1 tablet 24h Active Vitamins - (Dis) Active RESULTS No Results PROCEDURES Procedure Date Ordered Result Body Site URINE-NO MICRO Jan 28, 2018 COMPLETE CBC W/AUTO DIFF WBC Jan 28, 2018 ASSAY OF URINE CREATININE Jan 28, 2018 ASSAY OF BLOOD/URIC ACID Jan 28, 2018 LACTATE (LD) (LDH) ENZYME Jan 28, 2018 ASSAY OF PROTEIN, URINE Jan 28, 2018 COMPREHEN METABOLIC PANEL Jan 28, 2018 INSTRUCTIONS MEDICATIONS ADMINISTERED No Known Medications MEDICAL (GENERAL) HISTORY Type Description Date Hospitalization History Pneumonia 05/2000 Hospitalization History Heart Evaluation at [facility] 05/2009 Hospitalization History ER for hemmorrhaging 08/2017
--- OUTSIDE RECORDS SUMMARY | 2018-03-15 19:59 | XMS REPORT ---
Author Author LIAM CHRIS [facility] Address [address] [place] [address] Care Team Providers Care Sanipractic Physician Name Role Phone CHRIS WHEELER Unavailable PROBLEMS Type Condition ICD9-CM Code [id number] Code Onset Dates Condition Status SNOMED Code Problem care, first in third trimester Z34.03 Active 099587290 Problem Elevated blood pressure affecting in third trimester, antepartum O16.3 Active 24159421 Problem Unspecified blood type, Rh negative Z67.91 Active 055288014 ALLERGIES No Information ENCOUNTERS Encounter Location Date Diagnosis [place] [id number] [place] [address] 98751- 8613 Feb, [place] [address] [id number] [place] [address] 70358- 1592 26 Jan, 2018 Third trimester Z34.93 and 37 weeks gestation of Z3A.37 [place] [address] [id number] [place] [address] 04580- 5517 19 Jan, 2018 Third trimester Z34.93 ; 36 weeks gestation of Z3A.36 and Proteinuria affecting in third trimester O12.13 [place] [address] [place] [address] 15247- 3737 13 Jan, 2018 care, first in third trimester Z34.03 and 35 weeks gestation of Z3A.35 [place] [id number] [place] [address] 44358- 3730 Jan, [place] [address] [id number] [place] [address] 18430- 1376 Jan, [place] [id number] [place] [address] 95795- 4168 Jan, care, first in third trimester Z34.03 ; 34 weeks gestation of Z3A.34 and Elevated blood pressure affecting in third trimester, antepartum O16.3 [place] [id number] [place] [address] 87260- 9797 Dec, Third trimester Z33.1 and 32 weeks gestation of Z3A.32 [place] [id number] [place] [address] 77509- 9142 Dec, [place] [id number] [place] [address] 30612- 8082 Dec, [place] [address] [id number] [place] [address] 42740- 0449 Dec, 30 weeks gestation of Z3A.30 ; Elevated blood pressure affecting in third trimester, antepartum O16.3 ; Unspecified blood type, Rh negative Z67.91 ; Supervision of other high risk pregnancies, unspecified trimester O09.899 and Encounter for immunization Z23 [place] [id number] [place] [address] 05208- 9890 Nov, 28 weeks gestation of Z3A.28 and Third trimester Z34.93 [place] [address] [id number] [place] [address] 63569- 9856 Nov, [place] [id number] [place] [address] 68553- 8461 Nov, care, first in second trimester Z34.02 and 25 weeks gestation of Z3A.25 [place] [id number] [place] [address] 35988- 5839 Oct, [place] [address] [id number] [place] [address] 35807- 5320 Oct, care, first in second trimester Z34.02 and 21 weeks gestation of Z3A.21 [place] [id number] [place] [address] 65180- 3311 September, Evaluate anatomy not seen on prior sonogram Z04.8 [place] [address] [address]- 1075 September, [place] [id number] [place] [address] 28997- 8685 September, care, first in second trimester Z34.02 ; 17 weeks gestation of Z3A.17 and Urinary tract infection in mother during first trimester of O23.41 [place] [address] [place] [address] 64324- 2459 10 Aug, 2017 Other specified disorders of amniotic fluid and membranes, first trimester, not applicable or unspecified O41.8X10 ; Other antepartum hemorrhage, first trimester O46.8X1 and 12 weeks gestation of Z3A.12 [place] [address] [address]- 0066 Aug, Urinary tract infection in mother during first trimester of O23.41 [place] [address] [place] [address] 53491- 1449 03 Aug, 2017 care, first in first trimester Z34.01 ; Urinary tract infection in mother during first trimester of O23.41 and 11 weeks gestation of Z3A.11 [place] [address] [address]- 1636 Jul, [place] [address], [place] [address]- 4679 Jul, care, first in first trimester Z34.01 and 7 weeks gestation of Z3A.01 [place] [address] [address]- 1376 Jul, [place] [id number] [place] [address] 14183- 7846 Jun, Screening for deficiency anemia Z13.0 [place] [address], [place] [address]- 2930 Jun, [place] [address] 66912- 7418 20 Jun, 2017 [place] [address] 61964- 6692 15 Jun, 2017 [place] [address] 27167- 3738 14 Jun, 2017 test positive Z32.01 [facility] [place] [address] 25856 -0380 05 Jun, 2016 Cough R05 and Influenza A J10.[address] 58848- 1307 30 Jan, 2016 Encounter for immunization Z23 [place] [address] 14332- 7352 26 Jan, 2016 Visit for TB skin test Z11.1 and Screening for tuberculosis Z11.1 [facility] [place] [address] 21785 -4736 Dec, Right ankle injury, initial encounter S99.911A [address] 64936 -8839 Nov, Abscess L02.91 [place] [address] 56114- 6426 Jul, Microscopic hematuria R31.2 [place] [address] 37748- 6179 29 Jun, 2015 Vomiting, unspecified R11.10 ; Viral syndrome B34.9 ; Microscopic hematuria R31.2 and Proteinuria R80.9 [place] [address] 85746- 3232 Aug, [place] [address] 85483- 0063 Aug, [place] [address] 81121- 8593 Feb, [facility] [address] [facility] [id number] [address]- 2546 Feb, [facility] [address] [facility] [id number] [address] 2546 May, [facility] [address] [facility] [id number] [address] 2546 May, [facility] [address] [facility] [id number] [address]- 2546 Aug, IMMUNIZATIONS No Known Immunizations SOCIAL HISTORY Never Assessed REASON FOR VISIT OB f/u, OB Dip PLAN OF CARE Activity Details Follow Up 1 Week Reason: VITAL SIGNS Height 70 in 2018-02-05 Weight 183.4 lbs 2018-02-05 Temperature 97.8 degrees Fahrenheit 2018-02-05 Heart Rate 92 bpm 2018-02-05 Respiratory Rate 20 2018-02-05 BMI 26.315 kg/m2 2018-02-05 Blood pressure systolic 122 mmHg 2018-02-05 Blood pressure diastolic 74 mmHg 2018-02-05 MEDICATIONS Unknown Medications RESULTS Name Result Date Reference Range UA OB DIP (IN HOUSE) 2018-02-05 Glucose NEGATIVE Protein TRACE PROCEDURES Procedure Date Ordered Result Body Site URINE-NO MICRO Feb 05, 2018 INSTRUCTIONS MEDICATIONS ADMINISTERED No Known Medications MEDICAL (GENERAL) HISTORY Type Description Date Hospitalization History Pneumonia 05/2000 Hospitalization History Heart Evaluation at [facility] 05/2009 Hospitalization History ER for hemmorrhaging 08/2017
--- OUTSIDE RECORDS SUMMARY | 2018-03-15 19:59 | XMS REPORT ---
Author Author LIAM CHRIS [facility] Address [address] [place] [address] Care Team Providers Care Energy Conservation Engineer Name Role Phone CHRIS WHEELER Unavailable PROBLEMS Type Condition ICD9-CM Code [id number] Code Onset Dates Condition Status SNOMED Code Problem care, first in third trimester Z34.03 Active 276779862 Problem Elevated blood pressure affecting in third trimester, antepartum O16.3 Active 99930768 Problem Unspecified blood type, Rh negative Z67.91 Active 978601080 ALLERGIES No Information ENCOUNTERS Encounter Location Date Diagnosis [place] [address] [place] [id number] [place] [address] 95553- 7778 Feb, [place] [address] [place] [id number] [place] [address] 60246- 5751 26 Jan, 2018 Third trimester Z34.93 and 37 weeks gestation of Z3A.37 [place] [address] [place] [id number] [place] [address] 60549- 9373 19 Jan, 2018 Third trimester Z34.93 ; 36 weeks gestation of Z3A.36 and Proteinuria affecting in third trimester O12.13 [place] [address] [place] [address] 62090- 1545 13 Jan, 2018 care, first in third trimester Z34.03 and 35 weeks gestation of Z3A.35 [place] [address] [place] [id number] [place] [address] 87722- 3374 Jan, [place] [address] [place] [id number] [place] [address] 52623- 0416 Jan, [place] [address] [place] [id number] [place] [address] 44168- 5056 Jan, care, first in third trimester Z34.03 ; 34 weeks gestation of Z3A.34 and Elevated blood pressure affecting in third trimester, antepartum O16.3 [place] [address] [place] [id number] [place] [address] 00514- 8385 Dec, Third trimester Z33.1 and 32 weeks gestation of Z3A.32 [place] [address] [place] [id number] [place] [address] 29032- 8380 Dec, [place] [address] [place] [id number] [place] [address] 87803- 9141 Dec, [place] [address] [place] [id number] [place] [address] 28256- 9554 Dec, 30 weeks gestation of Z3A.30 ; Elevated blood pressure affecting in third trimester, antepartum O16.3 ; Unspecified blood type, Rh negative Z67.91 ; Supervision of other high risk pregnancies, unspecified trimester O09.899 and Encounter for immunization Z23 [place] [address] [place] [id number] [place] [address] 97904- 6565 Nov, 28 weeks gestation of Z3A.28 and Third trimester Z34.93 [place] [address] [place] [id number] [place] [address] 63068- 3129 Nov, [place] [address] [place] [id number] [place] [address] 23451- 1150 Nov, care, first in second trimester Z34.02 and 25 weeks gestation of Z3A.25 [place] [address] [place] [id number] [place] [address] 17176- 4947 Oct, [place] [address] [place] [id number] [place] [address] 58478- 0797 Oct, care, first in second trimester Z34.02 and 21 weeks gestation of Z3A.21 [place] [address] [place] [id number] [place] [address] 18825- 2089 September, Evaluate anatomy not seen on prior sonogram Z04.8 [place] [address] [address]- 0285 September, [place] [address] [place] [id number] [place] [address] 40725- 5581 September, care, first in second trimester Z34.02 ; 17 weeks gestation of Z3A.17 and Urinary tract infection in mother during first trimester of O23.41 [place] [address] [place] [address] 60359- 3988 10 Aug, 2017 Other specified disorders of amniotic fluid and membranes, first trimester, not applicable or unspecified O41.8X10 ; Other antepartum hemorrhage, first trimester O46.8X1 and 12 weeks gestation of Z3A.12 [place] [address] [address]- 1700 Aug, Urinary tract infection in mother during first trimester of O23.41 [place] [address] [place] [address] 85038- 1292 03 Aug, 2017 care, first in first trimester Z34.01 ; Urinary tract infection in mother during first trimester of O23.41 and 11 weeks gestation of Z3A.11 [place] [address] [address]- 4325 Jul, [place] [address] [address]- 9560 Jul, care, first in first trimester Z34.01 and 7 weeks gestation of Z3A.01 [place] [address] [address]- 2834 Jul, [place] [address] [place] [id number] [place] [address] 25447- 0431 Jun, Screening for deficiency anemia Z13.0 [place] [address] [address]- 6197 Jun, [place] [address] 12018- 7362 20 Jun, 2017 [place] [address] 93594- 8499 15 Jun, 2017 [place] [address] 05381- 1003 14 Jun, 2017 test positive Z32.01 [facility] [place] [address] 06975 -2044 05 Jun, 2016 Cough R05 and Influenza A J10.[address] 33741- 2465 30 Jan, 2016 Encounter for immunization Z23 [place] [address] 86547- 8324 26 Jan, 2016 Visit for TB skin test Z11.1 and Screening for tuberculosis Z11.1 [facility] IN [place] [address] 31435 -2396 Dec, Right ankle injury, initial encounter S99.911A [address] 72437 -2946 Nov, Abscess L02.91 [place] [address] 79871- 5781 Jul, Microscopic hematuria R31.2 [place] [address] 58017- 8858 29 Jun, 2015 Vomiting, unspecified R11.10 ; Viral syndrome B34.9 ; Microscopic hematuria R31.2 and Proteinuria R80.9 [place] [address] 17948- 5307 Aug, [place] [address] 57192- 1951 Aug, [place] [address] 81952- 8121 Feb, [facility] [place] [address] [facility] [id number] [address]- 2451 Feb, [facility] [place] [address] [facility] [id number], [place] [address]- 8696 May, [facility] [place] [address] [facility] [id number] [address]- 9060 May, [facility] [place] [address] [facility] [id number] [address]- 0541 Aug, IMMUNIZATIONS No Known Immunizations SOCIAL HISTORY Never Assessed REASON FOR VISIT PLAN OF CARE VITAL SIGNS MEDICATIONS Unknown Medications RESULTS No Results PROCEDURES No Known procedures INSTRUCTIONS MEDICATIONS ADMINISTERED No Known Medications MEDICAL (GENERAL) HISTORY Type Description Date Hospitalization History Pneumonia 05/2000 Hospitalization History Heart Evaluation at [facility] 05/2009 Hospitalization History ER for hemmorrhaging 08/2017
--- OUTSIDE RECORDS SUMMARY | 2018-03-15 19:59 | XMS REPORT ---
Author Author LIAM CHRIS [facility] Address [address] [place] [address] Care Team Providers Care Crime Investigator Special Agent Name Role Phone LIAMALAINACHRIS Unavailable PROBLEMS Type Condition ICD9-CM Code XHB41-DW Code Onset Dates Condition Status SNOMED Code Problem care, first in third trimester Z34.03 Active 696247900 Problem Elevated blood pressure affecting in third trimester, antepartum O16.3 Active 99595444 Problem Abscess L02.91 Active 331232050 Problem Unspecified blood type, Rh negative Z67.91 Active 761780786 ALLERGIES No Information ENCOUNTERS Encounter Location Date Diagnosis [place] [address] [place] [address] [id number] [place] [address] 13955- 2162 Feb, [place] [address] [place] [address] [id number] [place] [address] 92422- 8321 Jan, [place] [address] [place] [address] [id number] [place] [address] 88905- 0200 Jan, [place] [address] [place] [id number] [place] [address] 24859- 5286 13 Jan, 2018 care, first in third trimester Z34.03 and 35 weeks gestation of Z3A.35 [facility] [place] [address] [place] [address] [id number] [place] [address] 49324- 9960 Jan, [place] [address] [place] [address] [id number] [place] [address] 69090- 8183 06 Jan, 2018 [place] [address] [place] [address] [id number] [place] [address] 78918- 1154 05 Jan, 2018 care, first in third trimester Z34.03 ; 34 weeks gestation of Z3A.34 and Elevated blood pressure affecting in third trimester, antepartum O16.3 [place] [address], [place] [address]- 4847 Dec, Third trimester Z33.1 and 32 weeks gestation of Z3A.32 [place] [address] [place] [address] [id number] [place] [address] 76589- 0622 Dec, [place] [address] [place] [id number] [place] [address] 38351- 3292 Dec, [place] [address] [place] [address] [id number] [place] [address] 70966- 5417 Dec, 30 weeks gestation of Z3A.30 ; Elevated blood pressure affecting in third trimester, antepartum O16.3 ; Unspecified blood type, Rh negative Z67.91 ; Supervision of other high risk pregnancies, unspecified trimester O09.899 and Encounter for immunization Z23 [place] [address] [place] [address] [id number] [place] [address] 32602- 0666 Nov, 28 weeks gestation of Z3A.28 and Third trimester Z34.93 [place] [address] [place] [address] [id number] [place] [address] 85850- 6981 Nov, [place] [address] [place] [id number] [place] [address] 04907- 6819 Nov, care, first in second trimester Z34.02 and 25 weeks gestation of Z3A.25 [place] [address] [place] [address] 84430- 1117 Oct, [place] [address] [place] [address] 26756- 8492 Oct, care, first in second trimester Z34.02 and 21 weeks gestation of Z3A.21 [place] [address] [place] [id number] [place] [address] 15092- 6646 September, Evaluate anatomy not seen on prior sonogram Z04.8 [place] [address] [place] [id number] [place] [address] 95390- 6860 September, [place] [address], [place] [address]- 6598 September, care, first in second trimester Z34.02 ; 17 weeks gestation of Z3A.17 and Urinary tract infection in mother during first trimester of O23.41 [place] [address], [place] [address]- 0392 Aug, Other specified disorders of amniotic fluid and membranes, first trimester, not applicable or unspecified O41.8X10 ; Other antepartum hemorrhage, first trimester O46.8X1 and 12 weeks gestation of Z3A.12 [place] [address] [place] [id number] [address]- 6283 Aug, Urinary tract infection in mother during first trimester of O23.41 [place] [address], [place] [address]- 8645 Aug, care, first in first trimester Z34.01 ; Urinary tract infection in mother during first trimester of O23.41 and 11 weeks gestation of Z3A.11 [place] [address], [place] [address]- 4558 Jul, [place] [address], [place] [address]- 9825 Jul, care, first in first trimester Z34.01 and 7 weeks gestation of Z3A.01 [place] [address], [place] [address]- 4030 Jul, [place] [address], [place] [address]- 4112 Jun, Screening for deficiency anemia Z13.0 [place] [address], [place] [address]- 7996 Jun, [place] [address], [place] [address]- 6636 Jun, [place] [address] [place] [id number] [place] [address] 87340- 1855 15 Jun, 2017 [place] [address] 52219- 9477 14 Jun, 2017 test positive Z32.01 [facility] [address] 12591 -5428 05 Jun, 2016 Cough R05 and Influenza A J10.1 [place] [address] 45244- 5194 30 Jan, 2016 Encounter for immunization Z23 [address] 74446- 0157 Jan, Visit for TB skin test Z11.1 and Screening for tuberculosis Z11.1 [facility] IN [address] [address] -0132 Dec, Right ankle injury, initial encounter S99.911A [facility] IN [place] [address] 20101 -3341 Nov, Abscess L02.91 [place] [address] 55412- 3462 Jul, Microscopic hematuria R31.2 [place] [address] 30290- 2255 29 Jun, 2015 Vomiting, unspecified R11.10 ; Viral syndrome B34.9 ; Microscopic hematuria R31.2 and Proteinuria R80.9 [place] [address] [place] [id number] [place] [address] 20939- 1379 Aug, [place] [address] 45240- 9600 Aug, [place] [address] 97921- 4922 Feb, [place] [address] 46927- 2104 Feb, [facility] [place] [address] [facility] [id number] [place] [address]- 1296 May, [facility] [place] [address] [facility] [id number], [place] [address]- 7476 May, [facility] [place] [address] [facility] [id number], [place] [address]- 4120 Aug, IMMUNIZATIONS No Known Immunizations SOCIAL HISTORY Never Assessed REASON FOR VISIT Requests return call PLAN OF CARE VITAL SIGNS MEDICATIONS Medication Instructions Dosage Frequency Start Date End Date Duration Status Zofran 4 MG Orally every 4 hours 1 tablet as needed 4h Dec, Active RESULTS No Results PROCEDURES No Known procedures INSTRUCTIONS MEDICATIONS ADMINISTERED No Known Medications MEDICAL (GENERAL) HISTORY Type Description Date Hospitalization History Pneumonia 05/2000 Hospitalization History Heart Evaluation at [facility] 05/2009 Hospitalization History ER for hemmorrhaging 08/2017
--- OUTSIDE RECORDS SUMMARY | 2018-03-15 19:59 | XMS REPORT ---
Author Author LIAM CHRIS [facility] Address [address] [place] [address] Care Team Providers Care Verifying Specialist Name Role Phone CHRIS WHEELER Unavailable PROBLEMS Type Condition ICD9-CM Code OKJ94-QC Code Onset Dates Condition Status SNOMED Code Problem care, first in third trimester Z34.03 Active 123889423 Problem Elevated blood pressure affecting in third trimester, antepartum O16.3 Active 61563612 Problem Abscess L02.91 Active 339913145 Problem Unspecified blood type, Rh negative Z67.91 Active 980849377 ALLERGIES No Information ENCOUNTERS Encounter Location Date Diagnosis [place] [address] [place] [address] [id number] [place] [address] 66659- 2342 Feb, [place] [address] [place] [id number] [place] [address] 14580- 6283 26 Jan, 2018 [place] [address] [place] [id number] [place] [address] 40846- 6997 19 Jan, 2018 Third trimester Z34.93 ; 36 weeks gestation of Z3A.36 and Proteinuria affecting in third trimester O12.13 [place] [address] [place] [id number] [place] [address] 17667- 2805 13 Jan, 2018 care, first in third trimester Z34.03 and 35 weeks gestation of Z3A.35 [place] [address] [place] [id number] [place] [address] 60195- 6568 11 Jan, 2018 [place] [address] [place] [id number] [place] [address] 13893- 2195 06 Jan, 2018 [place] [address] [place] [id number] [place] [address] 94811- 3320 05 Jan, 2018 care, first in third trimester Z34.03 ; 34 weeks gestation of Z3A.34 and Elevated blood pressure affecting in third trimester, antepartum O16.3 [place] [address] [place] [id number] [place] [address] 79410- 6530 Dec, Third trimester Z33.1 and 32 weeks gestation of Z3A.32 [place] [address] 27745- 0314 Dec, [place] [address] [place] [id number] [place] [address] 71912- 7784 Dec, [place] [address] [place] [id number] [place] [address] 31790- 9088 Dec, 30 weeks gestation of Z3A.30 ; Elevated blood pressure affecting in third trimester, antepartum O16.3 ; Unspecified blood type, Rh negative Z67.91 ; Supervision of other high risk pregnancies, unspecified trimester O09.899 and Encounter for immunization Z23 [place] [address] [place] [id number] [place] [address] 35865- 4960 Nov, 28 weeks gestation of Z3A.28 and Third trimester Z34.93 [place] [address] [place] [id number] [place] [address] 51026- 3186 Nov, [place] [address] [place] [id number] [place] [address] 97091- 6680 Nov, care, first in second trimester Z34.02 and 25 weeks gestation of Z3A.25 [place] [address] [place] [id number] [place] [address] 40658- 8111 Oct, [place] [address] [place] [id number] [place] [address] 63173- 8050 Oct, care, first in second trimester Z34.02 and 21 weeks gestation of Z3A.21 [place] [address] [place] [id number] [place] [address] 44991- 1195 September, Evaluate anatomy not seen on prior sonogram Z04.8 [place] [address], [place] [address]- 2189 September, [place] [address] [place] [id number] [place] [address] 19127- 7151 September, care, first in second trimester Z34.02 ; 17 weeks gestation of Z3A.17 and Urinary tract infection in mother during first trimester of O23.41 [place] [address] [place] [id number] [place] [address] 49822- 9330 Aug, Other specified disorders of amniotic fluid and membranes, first trimester, not applicable or unspecified O41.8X10 ; Other antepartum hemorrhage, first trimester O46.8X1 and 12 weeks gestation of Z3A.12 [place] [address] [place] [id number] [place] [address] 38834- 1345 Aug, Urinary tract infection in mother during first trimester of O23.41 [place] [address] [place] [id number] [place] [address] 73748- 7728 Aug, care, first in first trimester Z34.01 ; Urinary tract infection in mother during first trimester of O23.41 and 11 weeks gestation of Z3A.11 [place] [address] [place] [address] 35318- 5167 Jul, [place] [address], [place] [address]- 1576 Jul, care, first in first trimester Z34.01 and 7 weeks gestation of Z3A.01 [place] [address] [place] [address] 38724- 9097 Jul, [place] [address] [place] [id number] [place] [address] 53634- 9807 Jun, Screening for deficiency anemia Z13.0 [place] [address] [place] [address] 84697- 0970 Jun, [place] [address] [place] [id number] [place] [address] 51966- 7034 20 Jun, 2017 [facility] [address] 74249- 5266 15 Jun, 2017 [place] [address] 19823- 9893 14 Jun, 2017 test positive Z32.01 [facility] [place] [address] 90888 -8017 05 Jun, 2016 Cough R05 and Influenza A J10.1 [place] [address] 18222- 8111 30 Jan, 2016 Encounter for immunization Z23 [place] [address] 15309- 8315 26 Jan, 2016 Visit for TB skin test Z11.1 and Screening for tuberculosis Z11.1 [facility] IN [place] [address] 71966 -9007 Dec, Right ankle injury, initial encounter S99.911A [facility] IN [place] [address] 76141 -9143 Nov, Abscess L02.91 [place] [address] 23327- 2817 Jul, Microscopic hematuria R31.2 [place] [address] 43403- 5562 29 Jun, 2015 Vomiting, unspecified R11.10 ; Viral syndrome B34.9 ; Microscopic hematuria R31.2 and Proteinuria R80.9 [place] [address] 03139- 9517 Aug, [place] [address] 74612- 3635 Aug, [place] [address] 87059- 8768 Feb, [facility] [address] [facility] [id number], [place] [address]- 2031 Feb, [facility] [address] [facility] [id number], [place] [address]- 3025 May, [facility] [address] [facility] [id number], [place] [address]- 2683 May, [facility] [address] [facility] [id number], [place] [address]- 0887 Aug, IMMUNIZATIONS No Known Immunizations SOCIAL HISTORY Never Assessed REASON FOR VISIT OB 2wk f/u-- heidi pacheco PLAN OF CARE Activity Details Follow Up 2 Weeks Reason: VITAL SIGNS Height 70 in 2018-01-15 Weight 179.0 lbs 2018-01-15 Temperature 97.8 degrees Fahrenheit 2018-01-15 Heart Rate 80 bpm 2018-01-15 Respiratory Rate 22 2018-01-15 BMI 25.684 kg/m2 2018-01-15 Blood pressure systolic 136 mmHg 2018-01-15 Blood pressure diastolic 88 mmHg 2018-01-15 MEDICATIONS Medication Instructions Dosage Frequency Start Date End Date Duration Status Zofran 4 MG Orally every 4 hours 1 tablet as needed 4h Dec, Active Vitamins - (Dis) Active Ferrous Sulfate 325 (65 Fe) MG Orally Once a day 1 tablet 24h Active RESULTS Name Result Date Reference Range UA OB DIP (IN HOUSE) 2018-01-15 Glucose neg Protein trace PROCEDURES Procedure Date Ordered Result Body Site URINE-NO MICRO Jan 15, 2018 INSTRUCTIONS MEDICATIONS ADMINISTERED No Known Medications MEDICAL (GENERAL) HISTORY Type Description Date Hospitalization History Pneumonia 05/2000 Hospitalization History Heart Evaluation at [facility] 05/2009 Hospitalization History ER for hemmorrhaging 08/2017
--- OUTSIDE RECORDS SUMMARY | 2018-03-15 19:59 | XMS REPORT ---
Author Author LIAM CHRIS [facility] Address [address] [place] [address] Care Team Providers Care Hand Tool Filer Name Role Phone CHRIS WHEELER Unavailable PROBLEMS Type Condition ICD9-CM Code MLV39-NA Code Onset Dates Condition Status SNOMED Code Problem care, first in third trimester Z34.03 Active 278088736 Problem Elevated blood pressure affecting in third trimester, antepartum O16.3 Active 65856758 Problem Unspecified blood type, Rh negative Z67.91 Active 504794571 ALLERGIES No Information ENCOUNTERS Encounter Location Date Diagnosis [place] [id number] [place] [address] 81824- 0942 Feb, [place] [id number] [place] [address] 37391- 0231 26 Jan, 2018 Third trimester Z34.93 and 37 weeks gestation of Z3A.37 [place] [id number] [place] [address] 58097- 9963 19 Jan, 2018 Third trimester Z34.93 ; 36 weeks gestation of Z3A.36 and Proteinuria affecting in third trimester O12.13 [place] [address] [place] [address] 17868- 4251 13 Jan, 2018 care, first in third trimester Z34.03 and 35 weeks gestation of Z3A.35 [place] [id number] [place] [address] 64154- 6744 Jan, [place] [id number] [place] [address] 21842- 3234 Jan, [place] [id number] [place] [address] 78268- 4723 Jan, care, first in third trimester Z34.03 ; 34 weeks gestation of Z3A.34 and Elevated blood pressure affecting in third trimester, antepartum O16.3 [place] [id number] [place] [address] 97258- 4319 Dec, Third trimester Z33.1 and 32 weeks gestation of Z3A.32 [place] [id number] [place] [address] 41920- 5588 Dec, [place] [id number] [place] [address] 14903- 6003 Dec, [place] [id number] [place] [address] 85435- 9546 Dec, 30 weeks gestation of Z3A.30 ; Elevated blood pressure affecting in third trimester, antepartum O16.3 ; Unspecified blood type, Rh negative Z67.91 ; Supervision of other high risk pregnancies, unspecified trimester O09.899 and Encounter for immunization Z23 [place] [id number] [place] [address] 95884- 5752 Nov, 28 weeks gestation of Z3A.28 and Third trimester Z34.93 [place] [id number] [place] [address] 91019- 9268 Nov, [place] [id number] [place] [address] 81792- 2551 Nov, care, first in second trimester Z34.02 and 25 weeks gestation of Z3A.25 [place] [id number] [place] [address] 29806- 6583 Oct, [place] [id number] [place] [address] 33663- 1798 Oct, care, first in second trimester Z34.02 and 21 weeks gestation of Z3A.21 [place] [id number] [place] [address] 41712- 6443 September, Evaluate anatomy not seen on prior sonogram Z04.8 [place] [address] [address] 9872 September, [place] [id number] [place] [address] 98924- 0526 September, care, first in second trimester Z34.02 ; 17 weeks gestation of Z3A.17 and Urinary tract infection in mother during first trimester of O23.41 [place] [address] [place] [address] 14223- 4668 10 Aug, 2017 Other specified disorders of amniotic fluid and membranes, first trimester, not applicable or unspecified O41.8X10 ; Other antepartum hemorrhage, first trimester O46.8X1 and 12 weeks gestation of Z3A.12 [place] [address] [address]- 5022 Aug, Urinary tract infection in mother during first trimester of O23.41 [place] [address] [place] [address] 77374- 7557 03 Aug, 2017 care, first in first trimester Z34.01 ; Urinary tract infection in mother during first trimester of O23.41 and 11 weeks gestation of Z3A.11 [place] [address] [address]- 7357 Jul, [place] [address] [address]- 1796 Jul, care, first in first trimester Z34.01 and 7 weeks gestation of Z3A.01 [place] [address] [address]- 9167 Jul, [place] [id number] [place] [address] 50830- 4819 Jun, Screening for deficiency anemia Z13.0 [place] [address] [address]- 0349 Jun, [place] [address] 79348- 9159 20 Jun, 2017 [place] [address] 80791- 1314 15 Jun, 2017 [place] [address] 84012- 7918 14 Jun, 2017 test positive Z32.01 [facility] [place] [address] 85729 -7035 05 Jun, 2016 Cough R05 and Influenza A J10.[address] 58391- 0767 30 Jan, 2016 Encounter for immunization Z23 [place] [address] 47799- 4717 26 Jan, 2016 Visit for TB skin test Z11.1 and Screening for tuberculosis Z11.1 [facility] [place] [address] 07743 -6414 Dec, Right ankle injury, initial encounter S99.911A [address] 90734 -6552 Nov, Abscess L02.91 [place] [address] 18072- 8564 Jul, Microscopic hematuria R31.2 [place] [address] 56007- 2020 29 Jun, 2015 Vomiting, unspecified R11.10 ; Viral syndrome B34.9 ; Microscopic hematuria R31.2 and Proteinuria R80.9 [place] [address] 97174- 3720 Aug, [place] [address] 80276- 2368 Aug, [place] [address] 26332- 8990 Feb, [facility] [address] [facility] [id number] [address]- 8653 Feb, [facility] [address] [facility] [id number] [address]- 0936 May, [facility] [address] [facility] [id number] [address]- 8005 May, [facility] [address] [facility] [id number] [place] [address]- 9225 Aug, IMMUNIZATIONS No Known Immunizations SOCIAL HISTORY Never Assessed REASON FOR VISIT Lab results PLAN OF CARE VITAL SIGNS MEDICATIONS Unknown Medications RESULTS No Results PROCEDURES No Known procedures INSTRUCTIONS MEDICATIONS ADMINISTERED No Known Medications MEDICAL (GENERAL) HISTORY Type Description Date Hospitalization History Pneumonia 05/2000 Hospitalization History Heart Evaluation at [facility] 05/2009 Hospitalization History ER for hemmorrhaging 08/2017
[2018-03-15 20:00] VITALS: BP 120/66
[2018-03-15] MEDS ORDERED: TERBUTALINE INJ 1 MG/ML (BRETHINE) AMP SC PRN (20:00)
[2018-03-15] MEDS ORDERED: MISOPROSTOL 100 MCG (CYTOTEC) TAB PO ONE (20:00)
--- OUTSIDE RECORDS SUMMARY | 2018-03-15 20:00 | XMS REPORT ---
Author Author LIAM CHRIS [facility] Address [address] [place] [address] Care Team Providers Care Manager Learning Name Role Phone LIAMALAINACHRIS Unavailable PROBLEMS Type Condition ICD9-CM Code LOQ70-YL Code Onset Dates Condition Status SNOMED Code Problem care, first in third trimester Z34.03 Active 736250112 Problem Elevated blood pressure affecting in third trimester, antepartum O16.3 Active 29876328 Problem Abscess L02.91 Active 955240820 Problem Unspecified blood type, Rh negative Z67.91 Active 280400425 ALLERGIES No Information ENCOUNTERS Encounter Location Date Diagnosis [facility] [id number] [place] [address] 88411- 8829 Feb, [facility] [id number] [place] [address] 52507- 5157 Jan, [facility] [id number] [place] [address] 93674- 8429 Jan, [facility] [id number] [place] [address] 77932- 0607 Jan, [facility] [id number] [place] [address] 01177- 5417 Dec, [facility] [id number] [place] [address] 45884- 5511 Dec, [facility] [id number] [place] [address] 10775- 9158 Dec, [facility] [address] [place] [address] 50294- 2767 Dec, 30 weeks gestation of Z3A.30 ; Elevated blood pressure affecting in third trimester, antepartum O16.3 ; Unspecified blood type, Rh negative Z67.91 ; Supervision of other high risk pregnancies, unspecified trimester O09.899 and Encounter for immunization Z23 [place] [id number] [place] [address] 87906- 8482 Nov, 28 weeks gestation of Z3A.28 and Third trimester Z34.93 [place] [id number] [place] [address] 68365- 0419 Nov, [place] [id number] [place] [address] 00445- 9520 Nov, care, first in second trimester Z34.02 and 25 weeks gestation of Z3A.25 [place] [id number] [place] [address] 47153- 6901 Oct, [place] [id number] [place] [address] 05421- 4928 Oct, care, first in second trimester Z34.02 and 21 weeks gestation of Z3A.21 [place] [id number] [place] [address] 21491- 7242 September, Evaluate anatomy not seen on prior sonogram Z04.8 [place] [id number] [place] [address] 18486- 2397 September, [place] [id number] [place] [address] 53533- 5763 September, care, first in second trimester Z34.02 ; 17 weeks gestation of Z3A.17 and Urinary tract infection in mother during first trimester of O23.41 [place] [id number] [place] [address] 36330- 3007 Aug, Other specified disorders of amniotic fluid and membranes, first trimester, not applicable or unspecified O41.8X10 ; Other antepartum hemorrhage, first trimester O46.8X1 and 12 weeks gestation of Z3A.12 [place] [address] 62474- 4440 Aug, Urinary tract infection in mother during first trimester of O23.41 [place] [id number] [place] [address] 75260- 8619 Aug, care, first in first trimester Z34.01 ; Urinary tract infection in mother during first trimester of O23.41 and 11 weeks gestation of Z3A.11 [place] [address] 76932- 8566 Jul, [place] [address] 96690- 4316 Jul, care, first in first trimester Z34.01 and 7 weeks gestation of Z3A.01 [place] [id number] [place] [address] 33440- 5130 Jul, [place] [address] 16125- 8187 Jun, Screening for deficiency anemia Z13.0 [place] [id number] [place] [address] 59502- 8606 Jun, [place] [address] 19156- 7655 Jun, [facility] [id number] [place] [address] 05312- 4928 Jun, [facility] [id number] [place] [address] 54383- 0971 Jun, test positive Z32.01 [facility] [id number] [place] [address] 70253 -8174 05 Jun, 2016 Cough R05 and Influenza A J10.1 [facility] [id number] [place] [address] 88923- 3488 Jan, Encounter for immunization Z23 [place] [address] 84968- 5757 Jan, Screening for tuberculosis Z11.1 and Visit for TB skin test Z11.1 [facility] [address] [place] [address] 76104 -4273 Dec, Right ankle injury, initial encounter S99.911A [facility] [id number] [place] [address] 84494 -3380 Nov, Abscess L02.91 [place] [id number] [place] [address] 66588- 8265 Jul, Microscopic hematuria R31.2 [place] [id number] [place] [address] 52019- 6831 Jun, Vomiting, unspecified R11.10 ; Viral syndrome B34.9 ; Microscopic hematuria R31.2 and Proteinuria R80.9 [place] [id number] [place] [address] 35517- 1796 Aug, [place] [id number] [place] [address] 99004- 6803 Aug, [place] [id number] [place] [address] 31183- 4248 Feb, [place] [id number] [place] [address] 54630- 2975 Feb, [place] [id number] [place] [address] 01474- 1902 May, [place] [id number] [place] [address] 21366- 1158 May, [place] [id number] [place] [address] 20163- 5692 Aug, IMMUNIZATIONS No Known Immunizations SOCIAL HISTORY Never Assessed REASON FOR VISIT PLAN OF CARE VITAL SIGNS MEDICATIONS Unknown Medications RESULTS No Results PROCEDURES No Known procedures INSTRUCTIONS MEDICATIONS ADMINISTERED No Known Medications MEDICAL (GENERAL) HISTORY Type Description Date Hospitalization History Pneumonia 05/2000 Hospitalization History Heart Evaluation at [facility] 05/2009 Hospitalization History ER for hemmorrhaging 08/2017
--- OUTSIDE RECORDS SUMMARY | 2018-03-15 20:00 | XMS REPORT ---
Author Author LIAM CHRIS [facility] Address [address] [place] [address] Care Team Providers Care Screening Specialist Name Role Phone LIAMALAINACHRIS Unavailable PROBLEMS Type Condition ICD9-CM Code KEZ69-IQ Code Onset Dates Condition Status SNOMED Code Problem care, first in third trimester Z34.03 Active 903529289 Problem Elevated blood pressure affecting in third trimester, antepartum O16.3 Active 17400296 Problem Abscess L02.91 Active 617616423 Problem Unspecified blood type, Rh negative Z67.91 Active 515435004 ALLERGIES Substance Reaction Event Type Date Status Sulfacetamide Sodium Unknown Drug Allergy Nov, Active ENCOUNTERS Encounter Location Date Diagnosis [facility] [id number] [place] [address] 65437- 1415 Feb, [facility] [id number] [place] [address] 65381- 9421 Jan, [facility] [id number] [place] [address] 98676- 1776 Jan, [facility] [id number] [place] [address] 99379- 5102 Jan, care, first in third trimester Z34.03 ; 34 weeks gestation of Z3A.34 and Elevated blood pressure affecting in third trimester, antepartum O16.3 [facility] [id number] [place] [address] 95601- 7853 Dec, Third trimester Z33.1 and 32 weeks gestation of Z3A.32 [facility] [id number] [place] [address] 65771- 4538 Dec, [facility] [id number] [place] [address] 90720- 4673 Dec, [place] [address] [place] [address] 49860- 6783 Dec, 30 weeks gestation of Z3A.30 ; Elevated blood pressure affecting in third trimester, antepartum O16.3 ; Unspecified blood type, Rh negative Z67.91 ; Supervision of other high risk pregnancies, unspecified trimester O09.899 and Encounter for immunization Z23 [place] [id number] [place] [address] 08683- 6743 Nov, 28 weeks gestation of Z3A.28 and Third trimester Z34.93 [place] [id number] [place] [address] 95333- 5502 Nov, [place] [id number] [place] [address] 27144- 2794 Nov, care, first in second trimester Z34.02 and 25 weeks gestation of Z3A.25 [place] [id number] [place] [address] 34113- 8041 Oct, [place] [id number] [place] [address] 27454- 5678 Oct, care, first in second trimester Z34.02 and 21 weeks gestation of Z3A.21 [place] [id number] [place] [address] 08547- 8149 September, Evaluate anatomy not seen on prior sonogram Z04.8 [place] [address] [place] [address] 35347- 7766 September, [place] [id number] [place] [address] 45142- 3166 September, care, first in second trimester Z34.02 ; 17 weeks gestation of Z3A.17 and Urinary tract infection in mother during first trimester of O23.41 [place] [address] [id number] [place] [address] 64162- 1245 Aug, Other specified disorders of amniotic fluid and membranes, first trimester, not applicable or unspecified O41.8X10 ; Other antepartum hemorrhage, first trimester O46.8X1 and 12 weeks gestation of Z3A.12 [place] [address] [id number] [place] [address] 51469- 2157 06 Aug, 2017 Urinary tract infection in mother during first trimester of O23.41 [place] [address] [id number] [place] [address] 40254- 9365 03 Aug, 2017 care, first in first trimester Z34.01 ; Urinary tract infection in mother during first trimester of O23.41 and 11 weeks gestation of Z3A.11 [place] [id number] [place] [address] 31600- 8108 13 Jul, 2017 [place] [address] [id number] [place] [address] 00263- 6420 Jul, care, first in first trimester Z34.01 and 7 weeks gestation of Z3A.01 [place] [address] [id number] [place] [address] 47921- 4211 Jul, [place] [address] [id number] [place] [address] 18447- 8335 Jun, Screening for deficiency anemia Z13.0 [place] [id number] [place] [address] 75499- 6320 Jun, [place] [address] [id number] [place] [address] 73366- 0089 Jun, [place] [address] [place] [id number] [place] [address] 21608- 7864 Jun, [place] [address] [id number] [place] [address] 20729- 6871 14 Jun, 2017 test positive Z32.01 [facility] [id number] [place] [address] 93957 -6593 05 Jun, 2016 Cough R05 and Influenza A J10.1 [facility] [id number] [place] [address] 76393- 5619 30 Jan, 2016 Encounter for immunization Z23 [place] [address] 34705- 0436 26 Jan, 2016 Visit for TB skin test Z11.1 and Screening for tuberculosis Z11.1 [facility] [address] 03382 -3797 Dec, Right ankle injury, initial encounter S99.911A [facility] [address] 17553 -9056 Nov, Abscess L02.91 [place] [address] 27279- 9373 Jul, Microscopic hematuria R31.2 [place] [address] 69735- 5067 Jun, Vomiting, unspecified R11.10 ; Viral syndrome B34.9 ; Microscopic hematuria R31.2 and Proteinuria R80.9 [place] [address] 58213- 5502 Aug, [place] [address] 46150- 5445 Aug, [place] [address] 79857- 9951 Feb, [facility] [address] 00631- 8349 Feb, [place] [address] 61600- 0012 May, [facility] [address] 73695- 2233 May, [facility] [address] 29231- 3541 Aug, IMMUNIZATIONS No Known Immunizations SOCIAL HISTORY Never Assessed REASON FOR VISIT OB 4wk [id number]--[id number] PLAN OF CARE Activity Details Follow Up 4 Weeks, 4 Weeks, 4 Weeks Reason: VITAL SIGNS Height 70 in 2017-12-02 Weight 169.5 lbs 2017-12-02 Temperature 98.4 degrees Fahrenheit 2017-12-02 Heart Rate 96 bpm 2017-12-02 Respiratory Rate 20 2017-12-02 BMI 24.321 kg/m2 2017-12-02 Blood pressure systolic 112 mmHg 2017-12-02 Blood pressure diastolic 60 mmHg 2017-12-02 MEDICATIONS Medication Instructions Dosage Frequency Start Date End Date Duration Status Cetirizine HCl 10 MG Not-Taking Vitamins - (Dis) Active RESULTS No Results PROCEDURES Procedure Date Ordered Result Body Site COMPLETE CBC W/AUTO DIFF WBC December 02, 2017 GLUCOSE TEST December 02, 2017 VENIPUNCT, ROUTINE* December 02, 2017 INSTRUCTIONS MEDICATIONS ADMINISTERED No Known Medications MEDICAL (GENERAL) HISTORY Type Description Date Hospitalization History Pneumonia 05/2000 Hospitalization History Heart Evaluation at [facility] 05/2009 Hospitalization History ER for hemmorrhaging 08/2017
--- OUTSIDE RECORDS SUMMARY | 2018-03-15 20:00 | XMS REPORT ---
Author Author LIAM CHRIS [facility] Address [address] [place] [address] Care Team Providers Care Obstetrics Tech Name Role Phone LIAMALAINACHRIS Unavailable PROBLEMS Type Condition ICD9-CM Code LPP37-SI Code Onset Dates Condition Status SNOMED Code Problem care, first in third trimester Z34.03 Active 560945937 Problem Elevated blood pressure affecting in third trimester, antepartum O16.3 Active 00133514 Problem Abscess L02.91 Active 932112024 Problem Unspecified blood type, Rh negative Z67.91 Active 263286824 ALLERGIES No Information ENCOUNTERS Encounter Location Date Diagnosis [place] [address] [place] [id number] [place] [address] 86396- 9144 Feb, [place] [address] [place] [address] [id number] [place] [address] 41632- 5154 Jan, [place] [address] [address] [id number] [place] [address] 84764- 8645 Jan, [place] [address] [address] [id number] [place] [address] 07489- 4707 13 Jan, 2018 care, first in third trimester Z34.03 and 35 weeks gestation of Z3A.35 [facility] [id number] [place] [address] 90912- 7326 Jan, [place] [address] [address] [id number] [place] [address] 49269- 5880 06 Jan, 2018 [place] [address] [address] [id number] [place] [address] 77265- 6949 05 Jan, 2018 care, first in third trimester Z34.03 ; 34 weeks gestation of Z3A.34 and Elevated blood pressure affecting in third trimester, antepartum O16.3 [place] [address], [place] [address] 3598 Dec, Third trimester Z33.1 and 32 weeks gestation of Z3A.32 [place] [address] [address] [id number] [place] [address] 50074- 0143 Dec, [place] [address] [address] [id number] [place] [address] 75815- 1573 Dec, [place] [address] [place] [address] [id number] [place] [address] 79594- 6207 Dec, 30 weeks gestation of Z3A.30 ; Elevated blood pressure affecting in third trimester, antepartum O16.3 ; Unspecified blood type, Rh negative Z67.91 ; Supervision of other high risk pregnancies, unspecified trimester O09.899 and Encounter for immunization Z23 [place] [address] [address] [id number] [place] [address] 95991- 1283 Nov, 28 weeks gestation of Z3A.28 and Third trimester Z34.93 [place] [address] [address] [id number] [place] [address] 08232- 9860 Nov, [place] [address] [address] [id number] [place] [address] 37233- 9423 Nov, care, first in second trimester Z34.02 and 25 weeks gestation of Z3A.25 [place] [address] [place] [address] 28829- 4190 Oct, [place] [address] [place] [address] 48522- 4267 Oct, care, first in second trimester Z34.02 and 21 weeks gestation of Z3A.21 [place] [address] [address] [id number] [place] [address] 13676- 0993 September, Evaluate anatomy not seen on prior sonogram Z04.8 [place] [address] [address] [id number] [place] [address] 40356- 0704 September, [place] [address] [address] 7171 September, care, first in second trimester Z34.02 ; 17 weeks gestation of Z3A.17 and Urinary tract infection in mother during first trimester of O23.41 [place] [address] [address] 1576 Aug, Other specified disorders of amniotic fluid and membranes, first trimester, not applicable or unspecified O41.8X10 ; Other antepartum hemorrhage, first trimester O46.8X1 and 12 weeks gestation of Z3A.12 [place] [id number] [address] 1843 Aug, Urinary tract infection in mother during first trimester of O23.41 [place] [address] [address] 2936 Aug, care, first in first trimester Z34.01 ; Urinary tract infection in mother during first trimester of O23.41 and 11 weeks gestation of Z3A.11 [place] [address] [address]- 6773 Jul, [place] [address] [address]- 2767 Jul, care, first in first trimester Z34.01 and 7 weeks gestation of Z3A.01 [place] [address] [address]- 2941 Jul, [place] [address] [address]- 7585 Jun, Screening for deficiency anemia Z13.0 [place] [address] [address]- 7429 Jun, [place] [address] [address]- 3502 Jun, [place] [address] [id number] [place] [address] 10030- 8951 15 Jun, 2017 [place] [address] 63732- 1499 14 Jun, 2017 test positive Z32.01 [facility] [address] 87345 -3623 05 Jun, 2016 Cough R05 and Influenza A J10.1 [place] [address] 05859- 5772 30 Jan, 2016 Encounter for immunization Z23 [address] 71898- 8511 Jan, Visit for TB skin test Z11.1 and Screening for tuberculosis Z11.1 [facility] IN [address] [address]18 Dec, Right ankle injury, initial encounter S99.911A [facility] IN [place] [address] 79424 -3241 Nov, Abscess L02.91 [place] [address] 37473- 2592 Jul, Microscopic hematuria R31.2 [place] [address] 95920- 8249 29 Jun, 2015 Vomiting, unspecified R11.10 ; Viral syndrome B34.9 ; Microscopic hematuria R31.2 and Proteinuria R80.9 [place] [address] [id number] [place] [address] 61370- 6505 Aug, [place] [address] 95240- 7297 Aug, [place] [address] 40595- 2079 Feb, [place] [address] 05809- 3787 Feb, [facility] [address] [facility] [id number] [place] [address]- 1883 May, [facility] [address] [facility] [id number] [address] 7547 May, [facility] [address] [facility] [id number] [address] 4469 Aug, IMMUNIZATIONS Vaccine Route Administration Date Status RHOGAM FULL DOSE IM Intramuscular Dec 31, 2017 Administered TDAP (BOOSTRIX) IM Intramuscular Dec 31, 2017 Administered SOCIAL HISTORY Never Assessed REASON FOR VISIT OB 2wk f/u -- heidi pacheco, swealling on fingers for the last few days PLAN OF CARE Activity Details Follow Up 2 Weeks, 2 Weeks Reason: VITAL SIGNS Height 70 in 2017-12-31 Weight 179.0 lbs 2017-12-31 Temperature 97.8 degrees Fahrenheit 2017-12-31 BMI 25.684 kg/m2 2017-12-31 Blood pressure systolic 142 mmHg 2017-12-31 Blood pressure diastolic 86 mmHg 2017-12-31 MEDICATIONS Medication Instructions Dosage Frequency Start Date End Date Duration Status Vitamins - (Dis) Active Ferrous Sulfate 325 (65 Fe) MG Orally Once a day 1 tablet 24h Active RESULTS No Results PROCEDURES Procedure Date Ordered Result Body Site TDAP (BOOSTRIX) Dec 31, 2017 SINGLE IMMUNIZATION ADMIN Dec 31, 2017 URINE-NO MICRO Dec 31, 2017 LACTATE (LD) (LDH) ENZYME Dec 31, 2017 RH IG, FULL-DOSE, IM Dec 31, 2017 VENIPUNCT, ROUTINE* Dec 31, 2017 THER/PROPH/DIAG INJ, SC/IM Dec 31, 2017 COMPREHEN METABOLIC PANEL Dec 31, 2017 ASSAY OF BLOOD/URIC ACID Dec 31, 2017 RBC ANTIBODY SCREEN Dec 31, 2017 COMPLETE CBC W/AUTO DIFF WBC Dec 31, 2017 INSTRUCTIONS MEDICATIONS ADMINISTERED No Known Medications MEDICAL (GENERAL) HISTORY Type Description Date Hospitalization History Pneumonia 05/2000 Hospitalization History Heart Evaluation at [facility] 05/2009 Hospitalization History ER for hemmorrhaging 08/2017
--- OUTSIDE RECORDS SUMMARY | 2018-03-15 20:00 | XMS REPORT ---
Author Author LIAM CHRIS [facility] Address [address] [place] [address] Care Team Providers Care Conventions Assistant Name Role Phone LIAMALAINACHRIS Unavailable PROBLEMS Type Condition ICD9-CM Code [id number] Code Onset Dates Condition Status SNOMED Code Problem care, first in third trimester Z34.03 Active 169889091 Problem Elevated blood pressure affecting in third trimester, antepartum O16.3 Active 67714369 Problem Abscess L02.91 Active 284509023 Problem Unspecified blood type, Rh negative Z67.91 Active 421509480 ALLERGIES No Information ENCOUNTERS Encounter Location Date Diagnosis [place] [id number] [place] [address] 47138- 8302 Feb, [place] [address] [address] [id number] [place] [address] 15966- 9259 Jan, [place] [address] [address] [id number] [place] [address] 94884- 8456 Jan, [place] [address] [address] [id number] [place] [address] 13596- 7124 13 Jan, 2018 care, first in third trimester Z34.03 and 35 weeks gestation of Z3A.35 [facility] [id number] [place] [address] 79510- 5890 Jan, [place] [address] [id number] [place] [address] 76089- 8019 06 Jan, 2018 [place] [address] [id number] [place] [address] 07934- 1970 05 Jan, 2018 care, first in third trimester Z34.03 ; 34 weeks gestation of Z3A.34 and Elevated blood pressure affecting in third trimester, antepartum O16.3 [place] [address], [place] [address]- 1600 Dec, Third trimester Z33.1 and 32 weeks gestation of Z3A.32 [place] [id number] [place] [address] 44258- 6166 Dec, [place] [address] [id number] [place] [address] 88885- 9595 Dec, [place] [address] [address] [id number] [place] [address] 64732- 1674 Dec, 30 weeks gestation of Z3A.30 ; Elevated blood pressure affecting in third trimester, antepartum O16.3 ; Unspecified blood type, Rh negative Z67.91 ; Supervision of other high risk pregnancies, unspecified trimester O09.899 and Encounter for immunization Z23 [place] [address] [id number] [place] [address] 71350- 7140 Nov, 28 weeks gestation of Z3A.28 and Third trimester Z34.93 [place] [address] [address] [id number] [place] [address] 01996- 9080 Nov, [place] [address] [address] [id number] [place] [address] 30785- 3095 Nov, care, first in second trimester Z34.02 and 25 weeks gestation of Z3A.25 [place] [address] [place] [address] 09294- 8593 Oct, [place] [address] [place] [address] 63796- 2135 Oct, care, first in second trimester Z34.02 and 21 weeks gestation of Z3A.21 [place] [address] [address] [id number] [place] [address] 13935- 8772 September, Evaluate anatomy not seen on prior sonogram Z04.8 [place] [address] [address] [id number] [place] [address] 26578- 8447 September, [place] [address], [place] [address]- 6105 September, care, first in second trimester Z34.02 ; 17 weeks gestation of Z3A.17 and Urinary tract infection in mother during first trimester of O23.41 [place] [address], [place] [address]- 9212 Aug, Other specified disorders of amniotic fluid and membranes, first trimester, not applicable or unspecified O41.8X10 ; Other antepartum hemorrhage, first trimester O46.8X1 and 12 weeks gestation of Z3A.12 [place] [id number] [address]- 3789 Aug, Urinary tract infection in mother during first trimester of O23.41 [place] [address], [place] [address]- 5483 Aug, care, first in first trimester Z34.01 ; Urinary tract infection in mother during first trimester of O23.41 and 11 weeks gestation of Z3A.11 [place] [address], [place] [address]- 9763 Jul, [place] [address], [place] [address]- 4660 Jul, care, first in first trimester Z34.01 and 7 weeks gestation of Z3A.01 [place] [address], [place] [address]- 5572 Jul, [place] [address], [place] [address]- 8571 Jun, Screening for deficiency anemia Z13.0 [place] [address], [place] [address]- 2086 Jun, [place] [address], [place] [address]- 1334 Jun, [place] [id number] [place] [address] 12328- 9092 15 Jun, 2017 [place] [address] 45055- 8989 14 Jun, 2017 test positive Z32.01 [facility] [address] 90849 -4251 05 Jun, 2016 Cough R05 and Influenza A J10.1 [place] [address] 50268- 8275 30 Jan, 2016 Encounter for immunization Z23 [address] 29798- 4560 Jan, Visit for TB skin test Z11.1 and Screening for tuberculosis Z11.1 [facility] IN [address] [address]12 Dec, Right ankle injury, initial encounter S99.911A [facility] [place] [address] [address]06 -2018 Nov, Abscess L02.91 [place] [address] 74201- 1024 Jul, Microscopic hematuria R31.2 [place] [address] 55112- 1960 29 Jun, 2015 Vomiting, unspecified R11.10 ; Viral syndrome B34.9 ; Microscopic hematuria R31.2 and Proteinuria R80.9 [place] [address] [place] [id number] [place] [address] 94408- 1914 Aug, [place] [address] 76599- 8000 Aug, [place] [address] 75927- 1042 Feb, [place] [address] 87044- 3003 Feb, [facility] [address] [facility] [id number] [place] [address]1 May, [facility] [address] [facility] [id number] [place] [address]- 7822 May, [facility] [address] [facility] [id number] [place] [address]297 Aug, IMMUNIZATIONS No Known Immunizations SOCIAL HISTORY Never Assessed REASON FOR VISIT PLAN OF CARE VITAL SIGNS MEDICATIONS Unknown Medications RESULTS No Results PROCEDURES No Known procedures INSTRUCTIONS MEDICATIONS ADMINISTERED No Known Medications MEDICAL (GENERAL) HISTORY Type Description Date Hospitalization History Pneumonia 05/2000 Hospitalization History Heart Evaluation at [facility] 05/2009 Hospitalization History ER for hemmorrhaging 08/2017
--- OUTSIDE RECORDS SUMMARY | 2018-03-15 20:00 | XMS REPORT ---
Author Author LIAM CHRIS [facility] Address [address] [place] [address] Care Team Providers Care Delivery Sales Worker Name Role Phone LIAMALAINACHRIS Unavailable PROBLEMS Type Condition ICD9-CM Code [id number] Code Onset Dates Condition Status SNOMED Code Problem care, first in third trimester Z34.03 Active 322957909 Problem Elevated blood pressure affecting in third trimester, antepartum O16.3 Active 77653340 Problem Abscess L02.91 Active 571950980 Problem Unspecified blood type, Rh negative Z67.91 Active 385651649 ALLERGIES Substance Reaction Event Type Date Status Sulfacetamide Sodium Unknown Drug Allergy Oct, Active ENCOUNTERS Encounter Location Date Diagnosis [place] [address] [place] [id number] [place] [address] 80642- 4898 Feb, [facility] [address] [address] [id number] [place] [address] 31962- 2827 Jan, [facility] [address] [place] [id number] [place] [address] 62260- 5562 Jan, [facility] [address] [place] [address] 45240- 6637 05 Jan, 2018 care, first in third trimester Z34.03 ; 34 weeks gestation of Z3A.34 and Elevated blood pressure affecting in third trimester, antepartum O16.3 [facility] [address] [place] [address] [id number] [place] [address] 66025- 0134 Dec, Third trimester Z33.1 and 32 weeks gestation of Z3A.32 [facility] [address] [place] [address] [id number] [place] [address] 30305- 3610 Dec, [facility] [address] [place] [address] [id number] [place] [address] 73918- 1660 Dec, [place] [address] [place] [address] 68934- 9474 Dec, 30 weeks gestation of Z3A.30 ; Elevated blood pressure affecting in third trimester, antepartum O16.3 ; Unspecified blood type, Rh negative Z67.91 ; Supervision of other high risk pregnancies, unspecified trimester O09.899 and Encounter for immunization Z23 [place] [address] [place] [id number] [place] [address] 79026- 6088 Nov, 28 weeks gestation of Z3A.28 and Third trimester Z34.93 [place] [address] [place] [id number] [place] [address] 37961- 2193 Nov, [place] [address] [place] [id number] [place] [address] 46318- 6307 Nov, care, first in second trimester Z34.02 and 25 weeks gestation of Z3A.25 [place] [address] [place] [id number] [place] [address] 60843- 9842 Oct, [place] [address] [place] [id number] [place] [address] 79035- 1356 Oct, care, first in second trimester Z34.02 and 21 weeks gestation of Z3A.21 [place] [address] [place] [id number] [place] [address] 82584- 6661 September, Evaluate anatomy not seen on prior sonogram Z04.8 [place] [address] [place] [address] 26534- 9856 September, [place] [address] [place] [id number] [place] [address] 33707- 6349 September, care, first in second trimester Z34.02 ; 17 weeks gestation of Z3A.17 and Urinary tract infection in mother during first trimester of O23.41 [place] [address] [place] [id number] [place] [address] 35885- 2633 Aug, Other specified disorders of amniotic fluid and membranes, first trimester, not applicable or unspecified O41.8X10 ; Other antepartum hemorrhage, first trimester O46.8X1 and 12 weeks gestation of Z3A.12 [place] [address] [place] [id number] [place] [address] 29324- 0679 06 Aug, 2017 Urinary tract infection in mother during first trimester of O23.41 [place] [address] [place] [id number] [place] [address] 06111- 9539 03 Aug, 2017 care, first in first trimester Z34.01 ; Urinary tract infection in mother during first trimester of O23.41 and 11 weeks gestation of Z3A.11 [place] [address] [place] [id number] [place] [address] 45208- 5006 13 Jul, 2017 [place] [address] [place] [id number] [place] [address] 16526- 3943 Jul, care, first in first trimester Z34.01 and 7 weeks gestation of Z3A.01 [place] [address] [place] [id number] [place] [address] 84761- 9297 Jul, [place] [address] [place] [id number] [place] [address] 54271- 3715 Jun, Screening for deficiency anemia Z13.0 [place] [address] [place] [id number] [place] [address] 57113- 5570 Jun, [place] [address] [place] [id number] [place] [address] 35419- 5170 Jun, [place] [address] [place] [id number] [place] [address] 41785- 6254 Jun, [place] [address] [place] [id number] [place] [address] 00896- 4590 14 Jun, 2017 test positive Z32.01 [facility]ALK IN [facility] [address] [place] [id number] [place] [address] 93956 -5436 05 Jun, 2016 Cough R05 and Influenza A J10.1 [facility] [address] [place] [id number] [place] [address] 91201- 0225 30 Jan, 2016 Encounter for immunization Z23 [place] [address] 76023- 5213 26 Jan, 2016 Visit for TB skin test Z11.1 and Screening for tuberculosis Z11.1 [facility] [address] 42183 -0924 Dec, Right ankle injury, initial encounter S99.911A [facility] IN [facility] [address] 30516 -4026 Nov, Abscess L02.91 [place] [address] 92958- 8419 Jul, Microscopic hematuria R31.2 [place] [address] 82711- 4589 Jun, Vomiting, unspecified R11.10 ; Viral syndrome B34.9 ; Microscopic hematuria R31.2 and Proteinuria R80.9 [place] [address] 51304- 7441 Aug, [place] [address] 31879- 1136 Aug, [place] [address] 15321- 6305 Feb, [facility] [address] 83196- 5545 Feb, [place] [address] 88641- 2260 May, [facility] [address] 52220- 8194 May, [facility] [address] 41034- 7841 Aug, IMMUNIZATIONS No Known Immunizations SOCIAL HISTORY Never Assessed REASON FOR VISIT OB 4wk f/u--tcuppettRN PLAN OF CARE Activity Details Follow Up 4 Weeks, 4 Weeks, 4 Weeks, 4 Weeks Reason: VITAL SIGNS Height 70 in 2017-11-03 Weight 219.14 lbs 2017-11-03 Temperature 99.4 degrees Fahrenheit 2017-11-03 Heart Rate 80 bpm 2017-11-03 Respiratory Rate 18 2017-11-03 BMI 31.443 kg/m2 2017-11-03 Blood pressure systolic 116 mmHg 2017-11-03 Blood pressure diastolic 60 mmHg 2017-11-03 MEDICATIONS Medication Instructions Dosage Frequency Start Date End Date Duration Status Vitamins - (Dis) Active Cetirizine HCl 10 MG Not-Taking RESULTS Name Result Date Reference Range UA OB DIP (IN HOUSE) 2017-11-03 Glucose negative Protein negative PROCEDURES Procedure Date Ordered Result Body Site URINE-NO MICRO November 03, 2017 INSTRUCTIONS MEDICATIONS ADMINISTERED No Known Medications MEDICAL (GENERAL) HISTORY Type Description Date Hospitalization History Pneumonia 05/2000 Hospitalization History Heart Evaluation at [facility] 05/2009 Hospitalization History ER for hemmorrhaging 08/2017
--- OUTSIDE RECORDS SUMMARY | 2018-03-15 20:00 | XMS REPORT ---
Author Author MADONNA JOHNSON Organization [facility] Address [address] [place] [address] Care Team Providers Care Cabinet Installer Name Role Phone MADONNA JOHNSON Unavailable PROBLEMS Type Condition ICD9-CM Code [id number] Code Onset Dates Condition Status SNOMED Code Problem care, first in third trimester Z34.03 Active 908828252 Problem Elevated blood pressure affecting in third trimester, antepartum O16.3 Active 09267752 Problem Abscess L02.91 Active 203451697 Problem Unspecified blood type, Rh negative Z67.91 Active 398185072 ALLERGIES No Information ENCOUNTERS Encounter Location Date Diagnosis [facility] [id number] [place] [address] 89064- 8402 Feb, [facility] [id number] [place] [address] 91395- 2831 Jan, [facility] [address] [address]- 0996 Jan, [facility] [id number] [place] [address] 24044- 5489 Jan, [facility] [address] 47937- 8555 Jan, care, first in third trimester Z34.03 ; 34 weeks gestation of Z3A.34 and Elevated blood pressure affecting in third trimester, antepartum O16.3 [facility] [address] 01697- 9306 Dec, Third trimester Z33.1 and 32 weeks gestation of Z3A.32 [facility] [address] 07018- 7225 Dec, [place] [address] [address] 0757 Dec, [place] [id number] [place] [address] 84239- 8464 Dec, 30 weeks gestation of Z3A.30 ; Elevated blood pressure affecting in third trimester, antepartum O16.3 ; Unspecified blood type, Rh negative Z67.91 ; Supervision of other high risk pregnancies, unspecified trimester O09.899 and Encounter for immunization Z23 [place] [address], [place] [address] 4232 Nov, 28 weeks gestation of Z3A.28 and Third trimester Z34.93 [place] [id number] [place] [address] 08760- 0301 Nov, [place] [id number] [place] [address] 87009- 9725 Nov, care, first in second trimester Z34.02 and 25 weeks gestation of Z3A.25 [place] [address], [place] [address]- 4248 Oct, [place] [id number] [place] [address] 54242- 3676 Oct, care, first in second trimester Z34.02 and 21 weeks gestation of Z3A.21 [place] [address] [place] [address] 18676- 8968 September, Evaluate anatomy not seen on prior sonogram Z04.8 [place] [address], [place] [address]- 4330 September, [place] [id number] [place] [address] 88604- 7488 September, care, first in second trimester Z34.02 ; 17 weeks gestation of Z3A.17 and Urinary tract infection in mother during first trimester of O23.41 [place] [id number] [address]- 9618 10 Aug, 2017 Other specified disorders of amniotic fluid and membranes, first trimester, not applicable or unspecified O41.8X10 ; Other antepartum hemorrhage, first trimester O46.8X1 and 12 weeks gestation of Z3A.12 [place] [id number] [place] [address] 15787- 9012 Aug, Urinary tract infection in mother during first trimester of O23.41 [place] [id number] [place] [address] 67240- 0012 03 Aug, 2017 care, first in first trimester Z34.01 ; Urinary tract infection in mother during first trimester of O23.41 and 11 weeks gestation of Z3A.11 [place] [id number] [place] [address] 04140- 5457 Jul, [place] [id number] [place] [address] 48577- 3178 Jul, care, first in first trimester Z34.01 and 7 weeks gestation of Z3A.01 [place] [id number] [place] [address] 37424- 7883 Jul, [facility] [id number] [place] [address] 07856- 4596 Jun, Screening for deficiency anemia Z13.0 [place] [id number] [place] [address] 16694- 8652 Jun, [facility] [id number] [place] [address] 86213- 7398 Jun, [place] [id number] [place] [address] 76020- 5519 Jun, [facility] [id number] [place] [address] 41218- 4649 14 Jun, 2017 test positive Z32.01 [facility] [id number] [place] [address] 71916 -8736 05 Jun, 2016 Cough R05 and Influenza A J10.1 [place] [address] 83674- 6424 30 Jan, 2016 Encounter for immunization Z23 [place] [address] 15239- 7156 26 Jan, 2016 Visit for TB skin test Z11.1 and Screening for tuberculosis Z11.1 [facility] [address] 620[address] -6543 Dec, Right ankle injury, initial encounter S99.911A [facility] [place] [address] 85727 -6619 Nov, Abscess L02.91 [place] [address] 14846- 5840 Jul, Microscopic hematuria R31.2 [place] [address] 52550- 4441 Jun, Vomiting, unspecified R11.10 ; Viral syndrome B34.9 ; Microscopic hematuria R31.2 and Proteinuria R80.9 [place] [address] 31134- 7272 Aug, [place] [address] 43213- 1094 Aug, [place] [address] 66032- 8925 Feb, [place] [address] 87114- 4534 Feb, [place] [address] 33314- 6330 May, [place] [address] 94286- 9603 May, [place] [address] 28305- 3812 Aug, IMMUNIZATIONS No Known Immunizations SOCIAL HISTORY Never Assessed REASON FOR VISIT PLAN OF CARE VITAL SIGNS MEDICATIONS Unknown Medications RESULTS No Results PROCEDURES No Known procedures INSTRUCTIONS MEDICATIONS ADMINISTERED No Known Medications MEDICAL (GENERAL) HISTORY Type Description Date Hospitalization History Pneumonia 05/2000 Hospitalization History Heart Evaluation at [facility] 05/2009 Hospitalization History ER for hemmorrhaging 08/2017
--- OUTSIDE RECORDS SUMMARY | 2018-03-15 20:00 | XMS REPORT ---
Author Author CHRIS WHEELER [facility] Address [address] [place] [address] Care Team Providers Care Addictions Counselor Assistant Name Role Phone CHRIS WHEELER Unavailable PROBLEMS Type Condition ICD9-CM Code KHF73-KM Code Onset Dates Condition Status SNOMED Code Problem care, first in third trimester Z34.03 Active 227762769 Problem Elevated blood pressure affecting in third trimester, antepartum O16.3 Active 79758740 Problem Abscess L02.91 Active 469725852 Problem Unspecified blood type, Rh negative Z67.91 Active 342841259 ALLERGIES No Information ENCOUNTERS Encounter Location Date Diagnosis [facility] [id number] [place] [address] 66499- 5496 Feb, [facility] [id number] [place] [address] 63656- 1550 Jan, [place] [id number] [place] [address] 99359- 0822 Jan, [facility] [id number] [place] [address] 10247- 9480 Jan, [facility] [id number] [place] [address] 82705- 3694 Dec, Third trimester Z33.1 and 32 weeks gestation of Z3A.32 [facility] [id number] [place] [address] 73374- 4884 Dec, [facility] [id number] [place] [address] 23661- 7154 Dec, [facility] [id number] [place] [address] 86660- 5964 Dec, 30 weeks gestation of Z3A.30 ; Elevated blood pressure affecting in third trimester, antepartum O16.3 ; Unspecified blood type, Rh negative Z67.91 ; Supervision of other high risk pregnancies, unspecified trimester O09.899 and Encounter for immunization Z23 [place] [id number] [place] [address] 96488- 6596 Nov, 28 weeks gestation of Z3A.28 and Third trimester Z34.93 [place] [address] 34764- 9165 Nov, [place] [id number] [place] [address] 48847- 4424 Nov, care, first in second trimester Z34.02 and 25 weeks gestation of Z3A.25 [place] [id number] [place] [address] 83672- 5975 Oct, [place] [address] 59422- 1426 Oct, care, first in second trimester Z34.02 and 21 weeks gestation of Z3A.21 [place] [id number] [place] [address] 63603- 6480 September, Evaluate anatomy not seen on prior sonogram Z04.8 [place] [id number] [place] [address] 41354- 5013 September, [place] [id number] [place] [address] 79342- 5964 September, care, first in second trimester Z34.02 ; 17 weeks gestation of Z3A.17 and Urinary tract infection in mother during first trimester of O23.41 [place] [id number] [place] [address] 86848- 3829 Aug, Other specified disorders of amniotic fluid and membranes, first trimester, not applicable or unspecified O41.8X10 ; Other antepartum hemorrhage, first trimester O46.8X1 and 12 weeks gestation of Z3A.12 [place] [address], [place] [address]- 7318 06 Aug, 2017 Urinary tract infection in mother during first trimester of O23.41 [place] [id number] [place] [address] 01824- 0537 Aug, care, first in first trimester Z34.01 ; Urinary tract infection in mother during first trimester of O23.41 and 11 weeks gestation of Z3A.11 [place] [id number] [place] [address] 54078- 5008 Jul, [place] [id number] [place] [address] 80309- 7983 Jul, care, first in first trimester Z34.01 and 7 weeks gestation of Z3A.01 [place] [id number] [place] [address] 60637- 8980 Jul, [place] [id number] [place] [address] 03133- 6450 Jun, Screening for deficiency anemia Z13.0 [place] [id number] [place] [address] 20486- 5016 Jun, [place] [id number] [place] [address] 74168- 2307 Jun, [place] [id number] [place] [address] 22740- 5054 Jun, [place] [id number] [place] [address] 30480- 2483 Jun, test positive Z32.01 [facility] [id number] [place] [address] 25310 -3909 05 Jun, 2016 Cough R05 and Influenza A J10.1 [place] [id number] [place] [address] 61080- 1411 Jan, Encounter for immunization Z23 [place] [id number] [address]- 2261 Jan, Visit for TB skin test Z11.1 and Screening for tuberculosis Z11.1 [facility] [id number] [place] [address] 28875 -4049 Dec, Right ankle injury, initial encounter S99.911A [facility] [id number] [place] [address] 45140 -7343 Nov, Abscess L02.91 [place] [id number] [place] [address] 34927- 3712 Jul, Microscopic hematuria R31.2 [place] [id number] [place] [address] 38816- 4198 29 Jun, 2015 Vomiting, unspecified R11.10 ; Viral syndrome B34.9 ; Microscopic hematuria R31.2 and Proteinuria R80.9 [place] [id number] [place] [address] 14249- 2422 Aug, [place] [id number] [place] [address] 13227- 5722 Aug, [place] [id number] [place] [address] 17361- 1340 Feb, [place] [id number] [place] [address] 76147- 0565 Feb, [place] [id number] [place] [address] 42930- 7927 May, [place] [id number] [place] [address] 76694- 0216 May, [place] [id number] [place] [address] 03977- 0403 Aug, IMMUNIZATIONS No Known Immunizations SOCIAL HISTORY Never Assessed REASON FOR VISIT PLAN OF CARE VITAL SIGNS MEDICATIONS Unknown Medications RESULTS No Results PROCEDURES No Known procedures INSTRUCTIONS MEDICATIONS ADMINISTERED No Known Medications MEDICAL (GENERAL) HISTORY Type Description Date Hospitalization History Pneumonia 05/2000 Hospitalization History Heart Evaluation at [facility] 05/2009 Hospitalization History ER for hemmorrhaging 08/2017
--- OUTSIDE RECORDS SUMMARY | 2018-03-15 20:01 | XMS REPORT ---
Author Author CHRIS WHEELER [facility] Address [address] [place] [address] Care Team Providers Care Compound Mixer Name Role Phone CHRIS WHEELER Unavailable PROBLEMS Type Condition ICD9-CM Code JUD05-QD Code Onset Dates Condition Status SNOMED Code Problem care, first in second trimester Z34.02 Active 442673646 Problem Abscess L02.91 Active 205754333 Problem Supervision of other high risk pregnancies, first trimester O09.891 Active 421555735 Problem Unspecified blood type, Rh negative Z67.91 Active 159120392 ALLERGIES No Information ENCOUNTERS Encounter Location Date Diagnosis [facility] [id number] [place] [address] 72497- 4322 Feb, [facility] [id number] [place] [address] 36965- 3361 Jan, [facility] [id number] [place] [address] 27286- 0695 Jan, [facility] [address], [place] [address]- 0172 Jan, [facility] [id number] [place] [address] 73370- 5885 Dec, [facility] [id number] [place] [address] 28892- 1096 Dec, [facility] [id number] [place] [address] 62076- 9335 Nov, 28 weeks gestation of Z3A.28 and Third trimester Z34.93 [facility] [id number] [place] [address] 59469- 7913 Nov, [facility] [address], [place] [address]- 7136 10 Nov, 2017 care, first in second trimester Z34.02 and 25 weeks gestation of Z3A.25 [place] [address], [place] [address]- 6801 11 Oct, 2017 [place] [address], [place] [address]- 5119 Oct, care, first in second trimester Z34.02 and 21 weeks gestation of Z3A.21 [place] [address] [place] [address] 08979- 6955 September, Evaluate anatomy not seen on prior sonogram Z04.8 [place] [address], [place] [address]- 0969 September, [place] [address] [place] [address] 74517- 8198 September, care, first in second trimester Z34.02 ; 17 weeks gestation of Z3A.17 and Urinary tract infection in mother during first trimester of O23.41 [place] [address] [place] [address] 55457- 1349 10 Aug, 2017 Other specified disorders of amniotic fluid and membranes, first trimester, not applicable or unspecified O41.8X10 ; Other antepartum hemorrhage, first trimester O46.8X1 and 12 weeks gestation of Z3A.12 [place] [address], [place] [address]- 6351 Aug, Urinary tract infection in mother during first trimester of O23.41 [place] [address], [place] [address]- 2019 03 Aug, 2017 care, first in first trimester Z34.01 ; Urinary tract infection in mother during first trimester of O23.41 and 11 weeks gestation of Z3A.11 [place] [address], [place] [address]- 2814 Jul, [facility] [id number] [place] [address] 81720- 1424 Jul, care, first in first trimester Z34.01 and 7 weeks gestation of Z3A.01 [facility] [id number] [place] [address] 94188- 4860 Jul, [facility] [id number] [place] [address] 72379- 2890 Jun, Screening for deficiency anemia Z13.0 [facility] [id number] [place] [address] 22105- 9967 Jun, [facility] [address] 97339- 7102 Jun, [facility] [id number] [place] [address] 27258- 2685 Jun, [facility] [id number] [place] [address] 06770- 5341 Jun, test positive Z32.01 [facility] [address] 39455 -1208 05 Jun, 2016 Cough R05 and Influenza A J10.1 [place] [id number] [place] [address] 19835- 6265 Jan, Encounter for immunization Z23 [facility] [id number] [place] [address] 90177- 1101 Jan, Visit for TB skin test Z11.1 and Screening for tuberculosis Z11.1 [facility] [id number] [place] [address] 48857 -1429 Dec, Right ankle injury, initial encounter S99.911A [facility] [id number] [place] [address] 52154 -3211 Nov, Abscess L02.91 [facility] [address] 37690- 8766 Jul, Microscopic hematuria R31.2 [facility] [address] 8792 Jun, Vomiting, unspecified R11.10 ; Viral syndrome B34.9 ; Microscopic hematuria R31.2 and Proteinuria R80.9 [facility] [address], [place] [address]- 5684 14 Aug, 2014 [facility] [id number] [place] [address] 83054- 4900 Aug, [facility] [id number] [place] [address] 592590- 7769 Feb, [facility] [id number] [place] [address] 81975599- 9485 Feb, [facility] [address] [place] [address] 65449- 6283 May, [facility] [address], [place] [address]- 5329 May, [facility] [address] [place] [address] 28973- 5839 Aug, IMMUNIZATIONS No Known Immunizations SOCIAL HISTORY Never Assessed REASON FOR VISIT Rx from lab results PLAN OF CARE VITAL SIGNS MEDICATIONS Medication Instructions Dosage Frequency Start Date End Date Duration Status Macrobid 100 mg Orally every 12 hrs 1 capsule with food 12h Aug, Aug, 7 day(s) Active RESULTS No Results PROCEDURES No Known procedures INSTRUCTIONS MEDICATIONS ADMINISTERED No Known Medications MEDICAL (GENERAL) HISTORY Type Description Date Hospitalization History Pneumonia 05/2000 Hospitalization History Heart Evaluation at [facility] 05/2009 Hospitalization History ER for hemmorrhaging 08/2017
--- OUTSIDE RECORDS SUMMARY | 2018-03-15 20:01 | XMS REPORT ---
Author Author LIAM CHRIS [facility] Address [address] [place] [address] Care Team Providers Care Agency Sales Management Assistant Name Role Phone LIAM CHRIS Unavailable PROBLEMS Type Condition ICD9-CM Code KRB36-[id number] Code Onset Dates Condition Status SNOMED Code Problem care, first in third trimester Z34.03 Active 525331088 Problem Elevated blood pressure affecting in third trimester, antepartum O16.3 Active 72333535 Problem Abscess L02.91 Active 062168592 Problem Unspecified blood type, Rh negative Z67.91 Active 725202757 ALLERGIES No Information ENCOUNTERS Encounter Location Date Diagnosis [facility], [place] [id number] [place] [address] 64928- 9620 Feb, [facility] [place] [id number] [place] [address] 98176- 9305 Jan, [facility] [place] [id number] [place] [address] 46113- 7139 Jan, [facility] [place] [id number] [place] [address] 16113- 3033 Jan, [facility] [place] [id number] [place] [address] 72718- 3027 Dec, [facility] [place] [id number] [place] [address] 15224- 1689 Dec, [facility] [place] [id number] [place] [address] 29969- 1556 Dec, [facility] [place] [id number] [place] [address] 47249- 9297 Dec, 30 weeks gestation of Z3A.30 ; Elevated blood pressure affecting in third trimester, antepartum O16.3 ; Unspecified blood type, Rh negative Z67.91 ; Supervision of other high risk pregnancies, unspecified trimester O09.899 and Encounter for immunization Z23 [place] [id number] [place] [address] 47697- 7682 Nov, 28 weeks gestation of Z3A.28 and Third trimester Z34.93 [place] [id number] [place] [address] 20637- 0970 Nov, [place] [id number] [place] [address] 56122- 8046 Nov, care, first in second trimester Z34.02 and 25 weeks gestation of Z3A.25 [place] [id number] [place] [address] 70134- 1157 Oct, [place] [id number] [place] [address] 37034- 5092 Oct, care, first in second trimester Z34.02 and 21 weeks gestation of Z3A.21 [place] [id number] [place] [address] 17051- 2961 September, Evaluate anatomy not seen on prior sonogram Z04.8 [place] [id number] [place] [address] 54188- 7477 September, [place] [id number] [place] [address] 49052- 2139 September, care, first in second trimester Z34.02 ; 17 weeks gestation of Z3A.17 and Urinary tract infection in mother during first trimester of O23.41 [place] [id number] [place] [address] 91248- 2914 Aug, Other specified disorders of amniotic fluid and membranes, first trimester, not applicable or unspecified O41.8X10 ; Other antepartum hemorrhage, first trimester O46.8X1 and 12 weeks gestation of Z3A.12 [place] [address] 40577- 6562 Aug, Urinary tract infection in mother during first trimester of O23.41 [place] [id number] [place] [address] 77529- 8606 Aug, care, first in first trimester Z34.01 ; Urinary tract infection in mother during first trimester of O23.41 and 11 weeks gestation of Z3A.11 [place] [address] 93918- 3789 Jul, [place] [address] 65122- 6483 Jul, care, first in first trimester Z34.01 and 7 weeks gestation of Z3A.01 [place] [id number] [place] [address] 22914- 9792 Jul, [place] [address] 41222- 7321 Jun, Screening for deficiency anemia Z13.0 [facility], [place] [id number] [place] [address] 80033- 9065 Jun, [facility] [place] [address] 20309- 9990 Jun, [facility] [place] [id number] [place] [address] 66179- 3905 Jun, [facility] [place] [id number] [place] [address] 58203- 1372 Jun, test positive Z32.01 [facility] [id number] [place] [address] 36069 -9405 05 Jun, 2016 Cough R05 and Influenza A J10.1 [facility], [place] [id number] [place] [address] 20654- 3178 30 Jan, 2016 Encounter for immunization Z23 [place] [address] 70221- 4732 Jan, Visit for TB skin test Z11.1 and Screening for tuberculosis Z11.1 [facility] [id number] [place] [address] 74631 -6735 Dec, Right ankle injury, initial encounter S99.911A [facility] [id number] [place] [address] 18628 -9675 Nov, Abscess L02.91 [place] [address] 04235- 2571 Jul, Microscopic hematuria R31.2 [place] [id number] [place] [address] 91083- 9437 Jun, Vomiting, unspecified R11.10 ; Viral syndrome B34.9 ; Microscopic hematuria R31.2 and Proteinuria R80.9 [place] [id number] [place] [address] 88705- 9472 Aug, [place] [id number] [place] [address] 22375- 3933 Aug, [place] [id number] [place] [address] 67353- 0612 Feb, [place] [id number] [place] [address] 69718- 8492 Feb, [place] [id number] [place] [address] 39581- 8999 May, [place] [id number] [place] [address] 23257- 4053 May, [place] [id number] [place] [address] 10355- 1412 Aug, IMMUNIZATIONS No Known Immunizations SOCIAL HISTORY Never Assessed REASON FOR VISIT Ultrasound request PLAN OF CARE VITAL SIGNS MEDICATIONS Unknown Medications RESULTS Name Result Date Reference Range Ultrasound : OB, Follow-up 2017-10-24 PROCEDURES No Known procedures INSTRUCTIONS MEDICATIONS ADMINISTERED No Known Medications MEDICAL (GENERAL) HISTORY Type Description Date Hospitalization History Pneumonia 05/2000 Hospitalization History Heart Evaluation at [facility] 05/2009 Hospitalization History ER for hemmorrhaging 08/2017
--- OUTSIDE RECORDS SUMMARY | 2018-03-15 20:01 | XMS REPORT ---
Author Author CHRIS WHEELER [facility] Address [address] [place] [address] Care Team Providers Care Sulfide Head Operator Name Role Phone CHRIS WHEELER Unavailable PROBLEMS Type Condition ICD9-CM Code BBW89-TM Code Onset Dates Condition Status SNOMED Code Problem Elevated blood pressure affecting in third trimester, antepartum O16.3 Active 24145873 Problem care, first in second trimester Z34.02 Active 313011131 Problem Unspecified blood type, Rh negative Z67.91 Active 409873067 Problem Abscess L02.91 Active 800341075 Problem Supervision of other high risk pregnancies, first trimester O09.891 Active 178366182 ALLERGIES Substance Reaction Event Type Date Status Sulfacetamide Sodium Unknown Drug Allergy September, Active ENCOUNTERS Encounter Location Date Diagnosis [facility] [id number] [place] [address] 56447- 3636 Feb, [facility] [id number] [place] [address] 84174- 9387 Jan, [facility] [id number] [place] [address] 26519- 1097 Jan, [facility] [id number] [place] [address] 16735- 5179 Jan, [facility] [id number] [place] [address] 63019- 7126 Dec, [facility] [address] 78437- 4487 Dec, [facility] [id number] [place] [address] 84732- 8722 Dec, [facility] [id number] [place] [address] 68661- 6413 Dec, care, first in second trimester Z34.02 ; 30 weeks gestation of Z3A.30 ; Elevated blood pressure affecting in third trimester, antepartum O16.3 ; Unspecified blood type, Rh negative Z67.91 ; Supervision of other high risk pregnancies, unspecified trimester O09.899 and Encounter for immunization Z23 [place] [id number] [place] [address] 10470- 9346 Nov, 28 weeks gestation of Z3A.28 and Third trimester Z34.93 [place] [id number] [place] [address] 43428- 3882 Nov, [place] [id number] [place] [address] 09500- 0964 Nov, care, first in second trimester Z34.02 and 25 weeks gestation of Z3A.25 [place] [id number] [place] [address] 65376- 0217 Oct, [place] [id number] [place] [address] 50052- 2930 Oct, care, first in second trimester Z34.02 and 21 weeks gestation of Z3A.21 [place] [id number] [place] [address] 39785- 8198 September, Evaluate anatomy not seen on prior sonogram Z04.8 [place] [id number] [place] [address] 63828- 4747 September, [place] [id number] [place] [address] 74383- 3752 September, care, first in second trimester Z34.02 ; 17 weeks gestation of Z3A.17 and Urinary tract infection in mother during first trimester of O23.41 [place] [id number] [place] [address] 51955- 3168 Aug, Other specified disorders of amniotic fluid and membranes, first trimester, not applicable or unspecified O41.8X10 ; Other antepartum hemorrhage, first trimester O46.8X1 and 12 weeks gestation of Z3A.12 [place] [id number] [place] [address] 76546- 8123 06 Aug, 2017 Urinary tract infection in mother during first trimester of O23.41 [place] [id number] [place] [address] 02822- 9384 03 Aug, 2017 care, first in first trimester Z34.01 ; Urinary tract infection in mother during first trimester of O23.41 and 11 weeks gestation of Z3A.11 [place] [id number] [place] [address] 22241- 0252 Jul, [place] [address] 97527- 6014 Jul, care, first in first trimester Z34.01 and 7 weeks gestation of Z3A.01 [place] [address] 07009- 1707 Jul, [place] [id number] [place] [address] 17506- 5663 Jun, Screening for deficiency anemia Z13.0 [place] [id number] [place] [address] 44247- 8653 Jun, [place] [id number] [place] [address] 72428- 0024 Jun, [place] [id number] [place] [address] 68836- 9524 Jun, [place] [address] 31971- 9926 14 Jun, 2017 test positive Z32.01 [facility] [id number] [place] [address] 18112 -0177 05 Jun, 2016 Cough R05 and Influenza A J10.1 [place] [address] 30099- 3899 30 Jan, 2016 Encounter for immunization Z23 [facility] [id number] [place] [address] 24336- 1620 Jan, Visit for TB skin test Z11.1 and Screening for tuberculosis Z11.1 [facility] [id number] [place] [address] 21189 -4902 Dec, Right ankle injury, initial encounter S99.911A [facility] [id number] [place] [address] 43482 -4544 Nov, Abscess L02.91 [place] [address] 60283- 9499 04 Jul, 2015 Microscopic hematuria R31.2 [place] [id number] [place] [address] 32227- 2984 29 Jun, 2015 Vomiting, unspecified R11.10 ; Viral syndrome B34.9 ; Microscopic hematuria R31.2 and Proteinuria R80.9 [facility] [id number] [place] [address] 33488- 0239 Aug, [facility] [id number] [place] [address] 87640- 4795 Aug, [facility] [id number] [place] [address] 27531- 5693 Feb, [facility] [id number] [place] [address] 48108- 7450 Feb, [facility] [id number] [place] [address] 86546- 7755 May, [facility] [id number] [place] [address] 00215- 6464 May, [facility] [id number] [place] [address] 71692- 6631 Aug, IMMUNIZATIONS No Known Immunizations SOCIAL HISTORY Never Assessed REASON FOR VISIT OB 4wk f/u-Wendy PLAN OF CARE Activity Details Follow Up 4 Weeks, 4 Weeks Reason: VITAL SIGNS Height 70 in 2017-10-01 Weight 150.0 lbs 2017-10-01 Temperature 98.8 degrees Fahrenheit 2017-10-01 Heart Rate 70 bpm 2017-10-01 Respiratory Rate 20 2017-10-01 BMI 21.523 kg/m2 2017-10-01 Blood pressure systolic 118 mmHg 2017-10-01 Blood pressure diastolic 64 mmHg 2017-10-01 MEDICATIONS Medication Instructions Dosage Frequency Start Date End Date Duration Status Vitamins - (Dis) Active Cetirizine HCl 10 MG Not-Taking RESULTS No Results PROCEDURES Procedure Date Ordered Result Body Site URINE-NO MICRO October 01, 2017 URINE CULTURE/COLONY COUNT October 01, 2017 INSTRUCTIONS MEDICATIONS ADMINISTERED No Known Medications MEDICAL (GENERAL) HISTORY Type Description Date Hospitalization History Pneumonia 05/2000 Hospitalization History Heart Evaluation at [facility] 05/2009 Hospitalization History ER for hemmorrhaging 08/2017
--- OUTSIDE RECORDS SUMMARY | 2018-03-15 20:01 | XMS REPORT ---
Author Author LIAM CHRIS [facility] Address [address] [place] [address] Care Team Providers Care Church History Professor Name Role Phone CHRIS WHEELER Unavailable PROBLEMS Type Condition ICD9-CM Code LFZ30-XG Code Onset Dates Condition Status SNOMED Code Problem care, first in second trimester Z34.02 Active 134244385 Problem Abscess L02.91 Active 197735602 Problem Supervision of other high risk pregnancies, first trimester O09.891 Active 025693407 Problem Unspecified blood type, Rh negative Z67.91 Active 767153919 ALLERGIES No Information ENCOUNTERS Encounter Location Date Diagnosis [place] [id number] [place] [address] 49194- 8981 Dec, [place] [id number] [place] [address] 18857- 8914 Nov, [place] [id number] [place] [address] 46439- 0983 Nov, care, first in second trimester Z34.02 and 25 weeks gestation of Z3A.25 [place] [id number] [place] [address] 78763- 8241 Oct, [place] [id number] [place] [address] 23390- 6935 Oct, care, first in second trimester Z34.02 and 21 weeks gestation of Z3A.21 [place] [address] 80039- 6584 September, Evaluate anatomy not seen on prior sonogram Z04.8 [place] [id number] [place] [address] 18187- 8723 September, [place] [address] [address]- 8670 September, care, first in second trimester Z34.02 ; 17 weeks gestation of Z3A.17 and Urinary tract infection in mother during first trimester of O23.41 [place] [address] [address]- 4972 Aug, Other specified disorders of amniotic fluid and membranes, first trimester, not applicable or unspecified O41.8X10 ; Other antepartum hemorrhage, first trimester O46.8X1 and 12 weeks gestation of Z3A.12 [place] [id number] [place] [address] 09640- 6109 Aug, Urinary tract infection in mother during first trimester of O23.41 [place] [address] [address]- 5955 Aug, care, first in first trimester Z34.01 ; Urinary tract infection in mother during first trimester of O23.41 and 11 weeks gestation of Z3A.11 [place] [address] [address]- 4535 Jul, [place] [id number] [place] [address] 33539- 2992 Jul, care, first in first trimester Z34.01 and 7 weeks gestation of Z3A.01 [place] [address] [address]- 3183 Jul, [place] [address] [address]- 0381 Jun, Screening for deficiency anemia Z13.0 [place] [address] [place] [address] 64548- 4435 Jun, [place] [address] [address]- 2257 Jun, [place] [id number] [place] [address] 50879- 1702 15 Jun, 2017 [facility] [address] 65000- 0035 14 Jun, 2017 test positive Z32.01 [facility] [address] 27263 -4033 05 Jun, 2016 Cough R05 and Influenza A J10.1 [place] [address] 59661- 3020 30 Jan, 2016 Encounter for immunization Z23 [place] [address] 46128- 3138 26 Jan, 2016 Visit for TB skin test Z11.1 and Screening for tuberculosis Z11.1 [facility] IN [place] [address] 91507 -3760 10 Dec, 2015 Right ankle injury, initial encounter S99.911A [facility] IN [place] [address] 12868 -4117 Nov, Abscess L02.91 [place] [address] 27346- 4821 04 Jul, 2015 Microscopic hematuria R31.2 [place] [address] 61898- 5842 29 Jun, 2015 Vomiting, unspecified R11.10 ; Viral syndrome B34.9 ; Microscopic hematuria R31.2 and Proteinuria R80.9 [place] [id number] [place] [address] 69921- 8441 Aug, [place] [address] 19308- 1589 Aug, [place] [address] 24582- 3039 Feb, [place] [address] 41543- 5971 Feb, [facility] [address] [facility] [id number] [place] [address]- 5230 May, [facility] [address] [facility] [id number] [address]- 2740 May, [facility] [address] [facility] [id number] [address]- 4148 Aug, IMMUNIZATIONS No Known Immunizations SOCIAL HISTORY Never Assessed REASON FOR VISIT OB 4wk f/uVickieRN PLAN OF CARE Activity Details Follow Up 4 Weeks, 4 Weeks Reason: VITAL SIGNS Height 70 in 2017-08-26 Weight 150 lbs 2017-08-26 Temperature 97.8 degrees Fahrenheit 2017-08-26 Heart Rate 86 bpm 2017-08-26 Respiratory Rate 16 2017-08-26 BMI 21.523 kg/m2 2017-08-26 Blood pressure systolic 120 mmHg 2017-08-26 Blood pressure diastolic 70 mmHg 2017-08-26 MEDICATIONS Medication Instructions Dosage Frequency Start Date End Date Duration Status Vitamins - (Dis) Active Cetirizine HCl 10 MG Not-Taking RESULTS No Results PROCEDURES Procedure Date Ordered Result Body Site URINE-NO MICRO August 26, 2017 URINE CULTURE/COLONY COUNT August 26, 2017 INSTRUCTIONS MEDICATIONS ADMINISTERED No Known Medications MEDICAL (GENERAL) HISTORY Type Description Date Hospitalization History Pneumonia 05/2000 Hospitalization History Heart Evaluation at [facility] 05/2009 Hospitalization History ER for hemmorrhaging 08/2017
--- OUTSIDE RECORDS SUMMARY | 2018-03-15 20:01 | XMS REPORT ---
Author Author CHRIS WHEELER [facility] Address [address] [place] [address] Care Team Providers Care Mortgage Loan Reviewer Name Role Phone CHRIS WHEELER Unavailable PROBLEMS Type Condition ICD9-CM Code HLA82-AU Code Onset Dates Condition Status SNOMED Code Problem care, first in second trimester Z34.02 Active 265597410 Problem Abscess L02.91 Active 665469642 Problem Supervision of other high risk pregnancies, first trimester O09.891 Active 405628507 Problem Unspecified blood type, Rh negative Z67.91 Active 256169460 ALLERGIES Substance Reaction Event Type Date Status Sulfacetamide Sodium Unknown Drug Allergy Aug, Active ENCOUNTERS Encounter Location Date Diagnosis [place] [id number] [place] [address] 09949- 1164 Feb, [facility] [address] [place] [id number] [place] [address] 03638- 8725 Jan, [facility] [address] [place] [id number] [place] [address] 50877- 3206 Jan, [facility] [address], [place] [address] 8060 Jan, [facility] [address] [place] [id number] [place] [address] 86503- 6660 Dec, [facility] [address] [place] [id number] [place] [address] 21235- 7341 Dec, [facility] [address] [place] [id number] [place] [address] 23986- 6244 Nov, 28 weeks gestation of Z3A.28 and Third trimester Z34.93 [facility] [address] [place] [id number] [place] [address] 50434- 7453 Nov, [place] [address] [place] [id number] [address] 2[address] Nov, care, first in second trimester Z34.02 and 25 weeks gestation of Z3A.25 [place] [address], [place] [address] 2733 Oct, [place] [address], [place] [address] 5337 Oct, care, first in second trimester Z34.02 and 21 weeks gestation of Z3A.21 [place] [address] [place] [id number] [place] [address] 92732- 5122 September, Evaluate anatomy not seen on prior sonogram Z04.8 [place] [address], [place] [address]- 8537 September, [place] [address], [place] [address] 2352 September, care, first in second trimester Z34.02 ; 17 weeks gestation of Z3A.17 and Urinary tract infection in mother during first trimester of O23.41 [place] [address] [place] [id number] [address] 0118 Aug, Other specified disorders of amniotic fluid and membranes, first trimester, not applicable or unspecified O41.8X10 ; Other antepartum hemorrhage, first trimester O46.8X1 and 12 weeks gestation of Z3A.12 [place] [address] [place] [id number], [place] [address]- 6842 Aug, Urinary tract infection in mother during first trimester of O23.41 [place] [address], [place] [address]- 4737 Aug, care, first in first trimester Z34.01 ; Urinary tract infection in mother during first trimester of O23.41 and 11 weeks gestation of Z3A.11 [place] [address] [place] [id number] [place] [address] 44030- 3032 Jul, [facility] [address] [place] [id number] [place] [address] 12600- 1340 Jul, care, first in first trimester Z34.01 and 7 weeks gestation of Z3A.01 [place] [address] 36732- 7126 Jul, [facility] [address] 04987- 5399 Jun, Screening for deficiency anemia Z13.0 [place] [address] 63370- 8251 Jun, [place] [address] 67091- 2479 Jun, [place] [address] 11387- 8309 Jun, [place] [address] 36701- 5670 14 Jun, 2017 test positive Z32.01 [facility] WALK IN [place] [address] 72907 -4450 05 Jun, 2016 Cough R05 and Influenza A J10.[address] 98438- 7661 Jan, Encounter for immunization Z23 [place] [address] 93309- 4644 Jan, Visit for TB skin test Z11.1 and Screening for tuberculosis Z11.1 [facility] WALK IN [place] [address] 87927 -1471 Dec, Right ankle injury, initial encounter S99.911A [facility] WALK IN [address] 77966 -2636 Nov, Abscess L02.91 [place] [address], [place] [address]- 6373 Jul, Microscopic hematuria R31.2 [facility] [address] [place] [id number] [place] [address] 92109- 6524 Jun, Vomiting, unspecified R11.10 ; Viral syndrome B34.9 ; Microscopic hematuria R31.2 and Proteinuria R80.9 [place] [address] [place] [id number] [place] [address] 49271- 1574 Aug, [facility] [address] [place] [id number] [place] [address] 12786- 6806 Aug, [place] [address] [place] [id number] [place] [address] 20023- 4559 Feb, [place] [address] [place] [id number] [place] [address] 97117- 7362 Feb, [place] [address] [place] [id number] [place] [address] 67233- 6022 May, [facility] [address] [place] [id number] [place] [address] 35442- 9828 May, [place] [address] [place] [id number] [place] [address] 56319- 7856 Aug, IMMUNIZATIONS No Known Immunizations SOCIAL HISTORY Never Assessed REASON FOR VISIT ER f/u bleeding since friday last week -- heidi pacheco PLAN OF CARE Activity Details Follow Up as scheduled Reason: VITAL SIGNS Height 70 in 2017-09-02 Weight 153.0 lbs 2017-09-02 Temperature 98.0 degrees Fahrenheit 2017-09-02 Heart Rate 70 bpm 2017-09-02 Respiratory Rate 18 2017-09-02 BMI 21.953 kg/m2 2017-09-02 Blood pressure systolic 112 mmHg 2017-09-02 Blood pressure diastolic 70 mmHg 2017-09-02 MEDICATIONS Medication Instructions Dosage Frequency Start Date End Date Duration Status Macrobid 100 mg Orally every 12 hrs 1 capsule with food 12h Aug, Aug, 7 day(s) Active Vitamins - (Dis) Active Cetirizine HCl 10 MG Not-Taking RESULTS Name Result Date Reference Range Ultrasound : OB, Follow-up 2017-09-17 PROCEDURES No Known procedures INSTRUCTIONS MEDICATIONS ADMINISTERED No Known Medications MEDICAL (GENERAL) HISTORY Type Description Date Hospitalization History Pneumonia 05/2000 Hospitalization History Heart Evaluation at [facility] 05/2009 Hospitalization History ER for hemmorrhaging 08/2017
--- OUTSIDE RECORDS SUMMARY | 2018-03-15 20:01 | XMS REPORT ---
Author Author LIAM CHRIS [facility] Address [address] [place] [address] Care Team Providers Care Director Of Music Therapy Name Role Phone LIAM CHRIS Unavailable PROBLEMS Type Condition ICD9-CM Code [id number] Code Onset Dates Condition Status SNOMED Code Problem care, first in second trimester Z34.02 Active 313959411 Problem Abscess L02.91 Active 767216397 Problem Supervision of other high risk pregnancies, first trimester O09.891 Active 412960144 Problem Unspecified blood type, Rh negative Z67.91 Active 391556427 ALLERGIES Substance Reaction Event Type Date Status Sulfacetamide Sodium Unknown Drug Allergy Jul, Active ENCOUNTERS Encounter Location Date Diagnosis [place] [address] [place] [address] 70283- 1766 Dec, [place] [address] [place] [id number] [place] [address] 02342- 0466 Nov, [place] [address] [place] [id number] [place] [address] 98486- 3118 Nov, care, first in second trimester Z34.02 and 25 weeks gestation of Z3A.25 [place] [address] [place] [address] 76601- 8148 Oct, [place] [address] [place] [id number] [place] [address] 35754- 1586 Oct, care, first in second trimester Z34.02 and 21 weeks gestation of Z3A.21 [place] [address] [place] [id number] [place] [address] 44209- 3296 September, Evaluate anatomy not seen on prior sonogram Z04.8 [place] [address] [place] [id number] [place] [address] 14623- 6761 September, [place] [address] [address]- 0121 September, care, first in second trimester Z34.02 ; 17 weeks gestation of Z3A.17 and Urinary tract infection in mother during first trimester of O23.41 [place] [address] [address]- 5906 Aug, Other specified disorders of amniotic fluid and membranes, first trimester, not applicable or unspecified O41.8X10 ; Other antepartum hemorrhage, first trimester O46.8X1 and 12 weeks gestation of Z3A.12 [place] [address] [place] [id number] [place] [address] 83262- 9826 Aug, Urinary tract infection in mother during first trimester of O23.41 [place] [address] [address]- 8283 Aug, care, first in first trimester Z34.01 ; Urinary tract infection in mother during first trimester of O23.41 and 11 weeks gestation of Z3A.11 [place] [address] [place] [address] 51307- 0990 Jul, [place] [address] [address]- 7286 Jul, care, first in first trimester Z34.01 and 7 weeks gestation of Z3A.01 [place] [address] [address]- 1296 Jul, [place] [address] [address]- 3233 Jun, Screening for deficiency anemia Z13.0 [place] [address] [address]- 8048 Jun, [place] [address] [place] [address] 07151- 7060 Jun, [place] [address] [place] [id number] [place] [address] 85871- 3990 15 Jun, 2017 [place] [address] 72439- 7125 14 Jun, 2017 test positive Z32.01 [facility] WALK IN [place] [address] 63036 -6853 05 Jun, 2016 Cough R05 and Influenza A J10.1 [place] [address] 72123- 5818 30 Jan, 2016 Encounter for immunization Z23 [place] [address] 37842- 4251 26 Jan, 2016 Visit for TB skin test Z11.1 and Screening for tuberculosis Z11.1 [facility] IN [place] [address] 97635 -9126 Dec, Right ankle injury, initial encounter S99.911A [facility] IN [place] [address] 39990 -2841 Nov, Abscess L02.91 [place] [address] 62113- 8196 Jul, Microscopic hematuria R31.2 [place] [address] 76260- 1897 29 Jun, 2015 Vomiting, unspecified R11.10 ; Viral syndrome B34.9 ; Microscopic hematuria R31.2 and Proteinuria R80.9 [place] [address] [place] [id number] [place] [address] 13570- 9403 Aug, [place] [address] 54660- 9357 Aug, [place] [address] 64846- 7471 Feb, [place] [address] 20366- 2546 Feb, [facility] [address] [facility] [id number] [place] [address]- 4476 May, [facility] [address] [facility] [id number] [address]- 2546 May, [facility] [address] [facility] [id number] [place] [address]- 2546 Aug, IMMUNIZATIONS No Known Immunizations SOCIAL HISTORY Never Assessed REASON FOR VISIT OB-intake -- heidi pacheco PLAN OF CARE Activity Details Follow Up 4W, 4 Weeks Reason: VITAL SIGNS Height 70 in 2017-07-29 Weight 151.9 lbs 2017-07-29 Temperature 98.0 degrees Fahrenheit 2017-07-29 Heart Rate 72 bpm 2017-07-29 Respiratory Rate 18 2017-07-29 BMI 21.795 kg/m2 2017-07-29 Blood pressure systolic 110 mmHg 2017-07-29 Blood pressure diastolic 70 mmHg 2017-07-29 MEDICATIONS Medication Instructions Dosage Frequency Start Date End Date Duration Status Cetirizine HCl 10 MG Not-Taking Vitamins - (Dis) Active RESULTS No Results PROCEDURES Procedure Date Ordered Result Body Site RUBELLA ANTIBODY July 29, 2017 VENIPUNCT, ROUTINE* July 29, 2017 No Charge July 29, 2017 TRICHOMONAS ASSAY W/OPTIC July 29, 2017 CULTURE, BACTERIA, OTHER July 29, 2017 COMPLETE CBC W/AUTO DIFF WBC July 29, 2017 ASSAY THYROID STIM HORMONE July 29, 2017 URINE CULTURE/COLONY COUNT July 29, 2017 RBC ANTIBODY SCREEN July 29, 2017 BLOOD TYPING, ABO July 29, 2017 BLOOD TYPING, RH (D) July 29, 2017 INSTRUCTIONS MEDICATIONS ADMINISTERED No Known Medications MEDICAL (GENERAL) HISTORY Type Description Date Hospitalization History Pneumonia 05/2000 Hospitalization History Heart Evaluation at [facility] 05/2009 Hospitalization History ER for hemmorrhaging 08/2017
--- OUTSIDE RECORDS SUMMARY | 2018-03-15 20:01 | XMS REPORT ---
Author Author KOFI GRIER [facility] Address [address] [place] [address] Care Team Providers Care Chair Pad Maker Name Role Phone KOFI GRIER Unavailable PROBLEMS Type Condition ICD9-CM Code WJQ28-OO Code Onset Dates Condition Status SNOMED Code Problem care, first in second trimester Z34.02 Active 759857422 Problem Abscess L02.91 Active 995514465 Problem Supervision of other high risk pregnancies, first trimester O09.891 Active 548275119 Problem Unspecified blood type, Rh negative Z67.91 Active 132495382 ALLERGIES No Information ENCOUNTERS Encounter Location Date Diagnosis [place] [address] [place] [id number] [place] [address] 83063- 7262 Nov, [place] [address] [place] [id number] [place] [address] 41401- 9273 Oct, [place] [address] [place] [id number] [place] [address] 78149- 5832 Oct, care, first in second trimester Z34.02 and 21 weeks gestation of Z3A.21 [place] [address] [place] [id number] [place] [address] 55697- 5858 September, Evaluate anatomy not seen on prior sonogram Z04.8 [place] [address] [place] [id number] [place] [address] 69786- 1647 September, [place] [address] [place] [id number] [place] [address] 98754- 8055 September, care, first in second trimester Z34.02 ; 17 weeks gestation of Z3A.17 and Urinary tract infection in mother during first trimester of O23.41 [place] [address] [place] [id number] [place] [address] 98708- 9844 Aug, Other specified disorders of amniotic fluid and membranes, first trimester, not applicable or unspecified O41.8X10 ; Other antepartum hemorrhage, first trimester O46.8X1 and 12 weeks gestation of Z3A.12 [place] [address], [place] [address]- 1079 Aug, Urinary tract infection in mother during first trimester of O23.41 [place] [address] [place] [id number] [place] [address] 36157- 5402 03 Aug, 2017 care, first in first trimester Z34.01 ; Urinary tract infection in mother during first trimester of O23.41 and 11 weeks gestation of Z3A.11 [place] [address] [place] [id number] [place] [address] 49516- 6646 Jul, [place] [address] [place] [id number] [place] [address] 70223- 4724 Jul, care, first in first trimester Z34.01 and 7 weeks gestation of Z3A.01 [place] [address] [place] [id number] [place] [address] 86776- 1685 Jul, [place] [address] [place] [id number] [place] [address] 74723- 5265 Jun, Screening for deficiency anemia Z13.0 [place] [address] [place] [id number] [place] [address] 50451- 6600 Jun, [facility] [address] [place] [id number] [place] [address] 65544- 2953 Jun, [place] [address] [place] [address] 80701- 2467 Jun, [place] [address] [place] [id number] [place] [address] 81344- 4470 14 Jun, 2017 test positive Z32.01 [facility] [address] [place] [address] 96402 -7982 05 Jun, 2016 Cough R05 and Influenza A J10.1 [facility] [address] [place] [id number] [place] [address] 95182- 4764 30 Jan, 2016 Encounter for immunization Z23 [facility] [address] 84709- 9338 26 Jan, 2016 Visit for TB skin test Z11.1 and Screening for tuberculosis Z11.1 [facility] WALK IN [facility] [address] 39855 -3003 Dec, Right ankle injury, initial encounter S99.911A [facility] WALK IN [place] [address] 32542 -3100 Nov, Abscess L02.91 [place] [address] 17064- 7940 Jul, Microscopic hematuria R31.2 [place] [address] 04440- 4551 Jun, Vomiting, unspecified R11.10 ; Viral syndrome B34.9 ; Microscopic hematuria R31.2 and Proteinuria R80.9 [place] [address] 36952- 1283 Aug, [place] [address] 06062- 5445 Aug, [place] [address] 22476- 5211 Feb, [place] [address] 44767- 5370 Feb, [place] [address] 51020- 5658 May, [place] [address] 82603- 5967 May, [place] [address] 08885- 8610 Aug, IMMUNIZATIONS No Known Immunizations SOCIAL HISTORY Never Assessed REASON FOR VISIT test (walk-in) PLAN OF CARE VITAL SIGNS MEDICATIONS Unknown Medications RESULTS Name Result Date Reference Range TEST, URINE (IN HOUSE) 2017-07-09 RESULTS POSITIVE Lot # [id number] Control + Exp date 23 Oct 2018 PROCEDURES Procedure Date Ordered Result Body Site URINE TEST Jul 09, 2017 INSTRUCTIONS MEDICATIONS ADMINISTERED No Known Medications MEDICAL (GENERAL) HISTORY Type Description Date Hospitalization History Pneumonia 05/2000 Hospitalization History Heart Evaluation at [facility] 05/2009 Hospitalization History ER for hemmorrhaging 08/2017
--- OUTSIDE RECORDS SUMMARY | 2018-03-15 20:02 | XMS REPORT ---
Author Author LIAM CHRIS [facility] Address [address] [place] [address] Care Team Providers Care Construction Trades Contractor Name Role Phone LIAM CHRIS Unavailable PROBLEMS Type Condition ICD9-CM Code LGB32-ID Code Onset Dates Condition Status SNOMED Code Problem care, first in second trimester Z34.02 Active 544924766 Problem Abscess L02.91 Active 726635537 Problem Supervision of other high risk pregnancies, first trimester O09.891 Active 760737782 Problem Unspecified blood type, Rh negative Z67.91 Active 216566718 ALLERGIES No Information ENCOUNTERS Encounter Location Date Diagnosis [place] [address] [place] [id number] [place] [address] 62881- 1649 Nov, [place] [address] [place] [id number] [place] [address] 85965- 7313 Oct, [place] [address] [place] [id number] [place] [address] 27037- 3695 Oct, care, first in second trimester Z34.02 and 21 weeks gestation of Z3A.21 [place] [address] [place] [id number] [place] [address] 64440- 3264 September, Evaluate anatomy not seen on prior sonogram Z04.8 [place] [address] [place] [id number] [place] [address] 91364- 5331 September, [place] [address] 58589- 4671 September, care, first in second trimester Z34.02 ; 17 weeks gestation of Z3A.17 and Urinary tract infection in mother during first trimester of O23.41 [place] [address] [place] [id number] [place] [address] 74943- 9141 Aug, Other specified disorders of amniotic fluid and membranes, first trimester, not applicable or unspecified O41.8X10 ; Other antepartum hemorrhage, first trimester O46.8X1 and 12 weeks gestation of Z3A.12 [facility] [address], [place] [address]- 3408 06 Aug, 2017 Urinary tract infection in mother during first trimester of O23.41 [place] [address] [place] [id number] [place] [address] 39001- 5170 03 Aug, 2017 care, first in first trimester Z34.01 ; Urinary tract infection in mother during first trimester of O23.41 and 11 weeks gestation of Z3A.11 [place] [address], [place] [address]- 4562 Jul, [place] [address] [place] [id number] [place] [address] 62192- 2280 Jul, care, first in first trimester Z34.01 and 7 weeks gestation of Z3A.01 [place] [address], [place] [address]- 8029 Jul, [place] [address] [place] [id number] [place] [address] 20491- 1517 Jun, Screening for deficiency anemia Z13.0 [place] [address], [place] [address]- 0829 Jun, [facility] [address] [address]- 5337 Jun, [place] [address] [place] [address] 41582- 6503 Jun, [place] [address], [place] [address]- 8629 14 Jun, 2017 test positive Z32.[address] [facility] [address] [place] [address] 53751 -4949 05 Jun, 2016 Cough R05 and Influenza A J10.1 [place] [address] 31972- 5135 30 Jan, 2016 Encounter for immunization Z23 [place] [address] 23329- 7965 26 Jan, 2016 Screening for tuberculosis Z11.1 and Visit for TB skin test Z11.1 [facility] IN CARE [address] 31861 -5004 Dec, Right ankle injury, initial encounter S99.911A [facility] WALK IN [place] [address] 42451 -4687 Nov, Abscess L02.91 [place] [address] 49648- 4224 Jul, Microscopic hematuria R31.2 [place] [address] 61776- 4307 Jun, Vomiting, unspecified R11.10 ; Viral syndrome B34.9 ; Microscopic hematuria R31.2 and Proteinuria R80.9 [place] [address] 22983- 9362 Aug, [place] [address] 59917- 5438 Aug, [place] [address] 78363- 6782 Feb, [place] [address] 30482- 8864 Feb, [place] [address] 30442- 0457 May, [place] [address] 23833- 1862 May, [place] [address] 28519- 0779 Aug, IMMUNIZATIONS No Known Immunizations SOCIAL HISTORY Never Assessed REASON FOR VISIT PLAN OF CARE VITAL SIGNS MEDICATIONS Unknown Medications RESULTS No Results PROCEDURES No Known procedures INSTRUCTIONS MEDICATIONS ADMINISTERED No Known Medications MEDICAL (GENERAL) HISTORY Type Description Date Hospitalization History Pneumonia 05/2000 Hospitalization History Heart Evaluation at [facility] 05/2009 Hospitalization History ER for hemmorrhaging 08/2017
--- OUTSIDE RECORDS SUMMARY | 2018-03-15 20:02 | XMS REPORT ---
Author Author LIAM CHRIS [facility] Address [address] [place] [address] Care Team Providers Care Glaciologist Name Role Phone CHRIS WHEELER Unavailable PROBLEMS Type Condition ICD9-CM Code OJB58-ID Code Onset Dates Condition Status SNOMED Code Problem care, first in second trimester Z34.02 Active 750607456 Problem Abscess L02.91 Active 785055740 Problem Supervision of other high risk pregnancies, first trimester O09.891 Active 932195086 Problem Unspecified blood type, Rh negative Z67.91 Active 556595275 ALLERGIES No Information ENCOUNTERS Encounter Location Date Diagnosis [place] [address] [place] [id number] [place] [address] 49632- 6174 Dec, [place] [address] [place] [id number] [place] [address] 32224- 7906 Nov, [place] [address] [place] [id number] [place] [address] 03828- 7915 Nov, care, first in second trimester Z34.02 and 25 weeks gestation of Z3A.25 [place] [address] [place] [id number] [place] [address] 62086- 6964 Oct, [place] [address] [place] [id number] [place] [address] 81468- 7359 Oct, care, first in second trimester Z34.02 and 21 weeks gestation of Z3A.21 [place] [address] 93560- 3222 September, Evaluate anatomy not seen on prior sonogram Z04.8 [place] [address] [place] [id number] [place] [address] 76030- 6826 September, [place] [address] [address] 7[address] September, care, first in second trimester Z34.02 ; 17 weeks gestation of Z3A.17 and Urinary tract infection in mother during first trimester of O23.41 [place] [address] [address] 8183 Aug, Other specified disorders of amniotic fluid and membranes, first trimester, not applicable or unspecified O41.8X10 ; Other antepartum hemorrhage, first trimester O46.8X1 and 12 weeks gestation of Z3A.12 [place] [address] [place] [id number] [place] [address] 18167- 3440 Aug, Urinary tract infection in mother during first trimester of O23.41 [place] [address] [address] 8838 Aug, care, first in first trimester Z34.01 ; Urinary tract infection in mother during first trimester of O23.41 and 11 weeks gestation of Z3A.11 [place] [address] [address]- 3356 Jul, [place] [address] [place] [id number] [place] [address] 34918- 3039 Jul, care, first in first trimester Z34.01 and 7 weeks gestation of Z3A.01 [place] [address] [address]- 1575 Jul, [place] [address] [address]- 7252 Jun, Screening for deficiency anemia Z13.0 [place] [address] [place] [address] 00023- 3353 Jun, [place] [address] [address]- 3882 Jun, [place] [address] [place] [id number] [place] [address] 08489- 7679 15 Jun, 2017 [facility] [address] 39197- 7784 14 Jun, 2017 test positive Z32.01 [facility] [address] 28677 -2707 05 Jun, 2016 Cough R05 and Influenza A J10.1 [place] [address] 76341- 6754 30 Jan, 2016 Encounter for immunization Z23 [place] [address] 72094- 7489 Jan, Screening for tuberculosis Z11.1 and Visit for TB skin test Z11.1 [facility] IN [place] [address] 03242 -7561 Dec, Right ankle injury, initial encounter S99.911A [facility] IN [place] [address] 20560 -4333 Nov, Abscess L02.91 [place] [address] 39806- 6703 04 Jul, 2015 Microscopic hematuria R31.2 [place] [address] 70871- 8390 29 Jun, 2015 Vomiting, unspecified R11.10 ; Viral syndrome B34.9 ; Microscopic hematuria R31.2 and Proteinuria R80.9 [place] [address] [place] [address] [id number] [place] [address] 90161- 3865 Aug, [place] [address] 33281- 5798 Aug, [place] [address] 24478- 6618 Feb, [place] [address] 01478- 1262 Feb, [facility] [address] [facility] [id number] [place] [address]- 1294 May, [facility] [address] [facility] [id number] [address] 7061 May, [facility] [address] [facility] [id number] [place] [address]- 8791 Aug, IMMUNIZATIONS No Known Immunizations SOCIAL HISTORY Never Assessed REASON FOR VISIT PLAN OF CARE VITAL SIGNS MEDICATIONS Unknown Medications RESULTS No Results PROCEDURES No Known procedures INSTRUCTIONS MEDICATIONS ADMINISTERED No Known Medications MEDICAL (GENERAL) HISTORY Type Description Date Hospitalization History Pneumonia 05/2000 Hospitalization History Heart Evaluation at [facility] 05/2009 Hospitalization History ER for hemmorrhaging 08/2017
--- OUTSIDE RECORDS SUMMARY | 2018-03-15 20:02 | XMS REPORT ---
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 Phone CHRIS WHEELER Unavailable PROBLEMS Type Condition ICD9-CM Code [id number] Code Onset Dates Condition Status SNOMED Code Problem care, first in second trimester Z34.02 Active 553359172 Problem Abscess L02.91 Active 467131544 Problem Supervision of other high risk pregnancies, first trimester O09.891 Active 289749589 Problem Unspecified blood type, Rh negative Z67.91 Active 820597705 ALLERGIES No Information ENCOUNTERS Encounter Location Date Diagnosis [place] [address] [place] [address] [id number] [place] [address] 35072- 7620 Dec, [place] [address] [place] [address] [id number] [place] [address] 51963- 3497 Nov, [place] [address] [place] [address] [id number] [place] [address] 83782- 8804 Nov, care, first in second trimester Z34.02 and 25 weeks gestation of Z3A.25 [place] [address] [id number] [place] [address] 51846- 6034 Oct, [place] [address] [place] [address] [id number] [place] [address] 01684- 3948 Oct, care, first in second trimester Z34.02 and 21 weeks gestation of Z3A.21 [place] [address] 19087- 1364 September, Evaluate anatomy not seen on prior sonogram Z04.8 [place] [address] [id number] [place] [address] 15860- 4422 September, [place] [address] [address]- 5382 September, care, first in second trimester Z34.02 ; 17 weeks gestation of Z3A.17 and Urinary tract infection in mother during first trimester of O23.41 [place] [address], [place] [address]- 0241 Aug, Other specified disorders of amniotic fluid and membranes, first trimester, not applicable or unspecified O41.8X10 ; Other antepartum hemorrhage, first trimester O46.8X1 and 12 weeks gestation of Z3A.12 [place] [address] [place] [address] [id number] [place] [address] 01136- 2850 Aug, Urinary tract infection in mother during first trimester of O23.41 [place] [address], [place] [address]- 4735 Aug, care, first in first trimester Z34.01 ; Urinary tract infection in mother during first trimester of O23.41 and 11 weeks gestation of Z3A.11 [place] [address], [place] [address]- 4147 Jul, [place] [address] [place] [address] [id number] [place] [address] 03684- 1562 Jul, care, first in first trimester Z34.01 and 7 weeks gestation of Z3A.01 [place] [address], [place] [address]- 5700 Jul, [place] [address] [address]- 6806 Jun, Screening for deficiency anemia Z13.0 [place] [address] [place] [address] 32789- 9175 Jun, [place] [address], [place] [address]- 1655 Jun, [place] [address] [place] [address] [id number] [place] [address] 37597- 2960 15 Jun, 2017 [facility] [address] 47155- 2007 14 Jun, 2017 test positive Z32.01 [facility] WALK IN [facility] [address] 45605 -3058 05 Jun, 2016 Cough R05 and Influenza A J10.1 [place] [address] 29777- 1880 30 Jan, 2016 Encounter for immunization Z23 [place] [address] 17138- 0142 26 Jan, 2016 Visit for TB skin test Z11.1 and Screening for tuberculosis Z11.1 [facility] [place] [address] 88130 -9765 10 Dec, 2015 Right ankle injury, initial encounter S99.911A [facility] [place] [address] 13573 -0609 Nov, Abscess L02.91 [place] [address] 13498- 3267 04 Jul, 2015 Microscopic hematuria R31.2 [place] [address] 70461- 6293 29 Jun, 2015 Vomiting, unspecified R11.10 ; Viral syndrome B34.9 ; Microscopic hematuria R31.2 and Proteinuria R80.9 [place] [address] [place] [address] [id number] [place] [address] 86917- 1118 Aug, [place] [address] 76828- 2422 Aug, [place] [address] 08942- 4467 Feb, [place] [address] 36799- 5384 Feb, [facility] [address] [facility] [id number] [place] [address]- 3302 May, [facility] [address] [facility] [id number] [address]- 7270 May, [facility] [address] [facility] [id number] [place] [address] Aug, IMMUNIZATIONS No Known Immunizations SOCIAL HISTORY Never Assessed REASON FOR VISIT Rx from lab results PLAN OF CARE VITAL SIGNS MEDICATIONS Medication Instructions Dosage Frequency Start Date End Date Duration Status Augmentin 875-125 MG Orally every 12 hrs 1 tablet 12h 13 Jul, 2017Jul 07 days Active RESULTS No Results PROCEDURES No Known procedures INSTRUCTIONS MEDICATIONS ADMINISTERED No Known Medications MEDICAL (GENERAL) HISTORY Type Description Date Hospitalization History Pneumonia 05/2000 Hospitalization History Heart Evaluation at [facility] 05/2009 Hospitalization History ER for hemmorrhaging 08/2017
--- OUTSIDE RECORDS SUMMARY | 2018-03-15 20:02 | XMS REPORT ---
Author Author LIAM CHRIS [facility] Address [address] [place] [address] Care Team Providers Care Clinical Support Nurse Name Role Phone LIAM CHRIS Unavailable PROBLEMS Type Condition ICD9-CM Code EQH50-NJ Code Onset Dates Condition Status SNOMED Code Problem care, first in second trimester Z34.02 Active 062586641 Problem Abscess L02.91 Active 179386957 Problem Supervision of other high risk pregnancies, first trimester O09.891 Active 054848299 Problem Unspecified blood type, Rh negative Z67.91 Active 719445224 ALLERGIES No Information ENCOUNTERS Encounter Location Date Diagnosis [place] [address] [address] [id number] [place] [address] 08347- 3567 Nov, [place] [address] [address] [id number] [place] [address] 76354- 5013 Oct, [place] [address] [address] [address] [place] [address] 98436- 3589 Oct, care, first in second trimester Z34.02 and 21 weeks gestation of Z3A.21 [place] [address] [id number] [place] [address] 51762- 7593 September, Evaluate anatomy not seen on prior sonogram Z04.8 [place] [address] [address] [place] [address] 28200- 5765 September, [place] [address] 39457- 8661 September, care, first in second trimester Z34.02 ; 17 weeks gestation of Z3A.17 and Urinary tract infection in mother during first trimester of O23.41 [place] [address] [address] [id number] [place] [address] 95199- 1239 Aug, Other specified disorders of amniotic fluid and membranes, first trimester, not applicable or unspecified O41.8X10 ; Other antepartum hemorrhage, first trimester O46.8X1 and 12 weeks gestation of Z3A.12 [facility] [address], [place] [address]- 5940 06 Aug, 2017 Urinary tract infection in mother during first trimester of O23.41 [place] [address] [id number] [place] [address] 62495- 7281 03 Aug, 2017 care, first in first trimester Z34.01 ; Urinary tract infection in mother during first trimester of O23.41 and 11 weeks gestation of Z3A.11 [place] [address], [place] [address]- 8136 Jul, [place] [address] [address] [id number] [place] [address] 88520- 7690 Jul, care, first in first trimester Z34.01 and 7 weeks gestation of Z3A.01 [place] [address] [address]- 1680 Jul, [place] [address] [place] [id number] [place] [address] 28473- 6033 Jun, Screening for deficiency anemia Z13.0 [place] [address], [place] [address]- 5040 Jun, [facility] [address], [place] [address]- 0397 Jun, [place] [address] [place] [address] 01669- 0078 Jun, [place] [address], [place] [address]- 7514 14 Jun, 2017 test positive Z32.01 [facility] [address] [place] [address] 41552 -6769 05 Jun, 2016 Cough R05 and Influenza A J10.1 [place] [address] 03696- 3654 30 Jan, 2016 Encounter for immunization Z23 [place] [address] 81392- 8680 26 Jan, 2016 Visit for TB skin test Z11.1 and Screening for tuberculosis Z11.1 [facility] CARE [address] 02975 -4377 Dec, Right ankle injury, initial encounter S99.911A [facility] WALK IN [place] [address] 04616 -6529 Nov, Abscess L02.91 [place] [address] 06103- 1051 Jul, Microscopic hematuria R31.2 [place] [address] 09329- 5288 Jun, Vomiting, unspecified R11.10 ; Viral syndrome B34.9 ; Microscopic hematuria R31.2 and Proteinuria R80.9 [place] [address] 00692- 0909 Aug, [place] [address] 90617- 5305 Aug, [place] [address] 83266- 9634 Feb, [place] [address] 03197- 7179 Feb, [place] [address] 88903- 1063 May, [place] [address] 25279- 9930 May, [place] [address] 71085- 4773 Aug, IMMUNIZATIONS No Known Immunizations SOCIAL HISTORY Never Assessed REASON FOR VISIT PLAN OF CARE VITAL SIGNS MEDICATIONS Unknown Medications RESULTS No Results PROCEDURES No Known procedures INSTRUCTIONS MEDICATIONS ADMINISTERED No Known Medications MEDICAL (GENERAL) HISTORY Type Description Date Hospitalization History Pneumonia 05/2000 Hospitalization History Heart Evaluation at [facility] 05/2009 Hospitalization History ER for hemmorrhaging 08/2017
--- OUTSIDE RECORDS SUMMARY | 2018-03-15 20:02 | XMS REPORT ---
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 Phone KOFI GRIER Unavailable PROBLEMS Type Condition ICD9-CM Code MPT66-CR Code Onset Dates Condition Status SNOMED Code Problem care, first in second trimester Z34.02 Active 475833481 Problem Abscess L02.91 Active 332438597 Problem Supervision of other high risk pregnancies, first trimester O09.891 Active 974520253 Problem Unspecified blood type, Rh negative Z67.91 Active 105363512 ALLERGIES No Information ENCOUNTERS Encounter Location Date Diagnosis [place] [address] [place] [id number] [place] [address] 70115- 3306 Nov, [place] [address] [place] [id number] [place] [address] 17076- 6559 Oct, [place] [address] [place] [id number] [place] [address] 67861- 9216 Oct, care, first in second trimester Z34.02 and 21 weeks gestation of Z3A.21 [place] [address] [place] [id number] [place] [address] 21352- 1740 September, Evaluate anatomy not seen on prior sonogram Z04.8 [place] [address] [place] [id number] [place] [address] 80532- 8711 September, [place] [address] [place] [id number] [place] [address] 22668- 1884 September, care, first in second trimester Z34.02 ; 17 weeks gestation of Z3A.17 and Urinary tract infection in mother during first trimester of O23.41 [place] [address] [place] [id number] [place] [address] 97021- 6930 Aug, Other specified disorders of amniotic fluid and membranes, first trimester, not applicable or unspecified O41.8X10 ; Other antepartum hemorrhage, first trimester O46.8X1 and 12 weeks gestation of Z3A.12 [place] [address] [address]- 8445 Aug, Urinary tract infection in mother during first trimester of O23.41 [place] [address] [place] [id number] [place] [address] 02389- 8212 03 Aug, 2017 care, first in first trimester Z34.01 ; Urinary tract infection in mother during first trimester of O23.41 and 11 weeks gestation of Z3A.11 [place] [address] [place] [id number] [place] [address] 50451- 7710 Jul, [place] [address] [place] [id number] [place] [address] 83953- 9809 Jul, care, first in first trimester Z34.01 and 7 weeks gestation of Z3A.01 [place] [address] [place] [id number] [place] [address] 98797- 8058 Jul, [place] [address] [place] [id number] [place] [address] 28059- 9132 Jun, Screening for deficiency anemia Z13.0 [place] [address] [place] [id number] [place] [address] 64411- 3185 Jun, [facility] [address] [place] [id number] [place] [address] 54439- 3893 Jun, [place] [address] [place] [address] 15339- 6270 Jun, [place] [address] [place] [id number] [place] [address] 97686- 2444 14 Jun, 2017 test positive Z32.01 [facility] [address] [place] [address] 82858 -6801 05 Jun, 2016 Cough R05 and Influenza A J10.1 [facility] [place] [address] [place] [id number] [place] [address] 00521- 9400 30 Jan, 2016 Encounter for immunization Z23 [facility] [place] [address] 21673- 3476 26 Jan, 2016 Visit for TB skin test Z11.1 and Screening for tuberculosis Z11.1 [facility] WALK IN [facility] [address] 34199 -6473 Dec, Right ankle injury, initial encounter S99.911A [facility] WALK IN [place] [address] 71946 -3038 Nov, Abscess L02.91 [place] [address] 08791- 1514 Jul, Microscopic hematuria R31.2 [place] [address] 38280- 3081 Jun, Vomiting, unspecified R11.10 ; Viral syndrome B34.9 ; Microscopic hematuria R31.2 and Proteinuria R80.9 [place] [address] 15206- 1522 Aug, [place] [address] 51058- 5830 Aug, [place] [address] 30227- 8021 Feb, [place] [address] 47337- 6696 Feb, [place] [address] 24865- 0340 May, [place] [address] 22960- 8216 May, [place] [address] 41675- 0960 Aug, IMMUNIZATIONS No Known Immunizations SOCIAL HISTORY Never Assessed REASON FOR VISIT [facility] Hemoglobin PLAN OF CARE VITAL SIGNS MEDICATIONS Unknown Medications RESULTS Name Result Date Reference Range HEMOGLOBIN (IN HOUSE) 2017-07-18 HEMOGLOBIN 12.4 11.5 - 16 gm/dL Lot # [id number] Exp date 04/14/18 PROCEDURES Procedure Date Ordered Result Body Site HEMOGLOBIN Jul 18, 2017 INSTRUCTIONS MEDICATIONS ADMINISTERED No Known Medications MEDICAL (GENERAL) HISTORY Type Description Date Hospitalization History Pneumonia 05/2000 Hospitalization History Heart Evaluation at [facility] 05/2009 Hospitalization History ER for hemmorrhaging 08/2017
--- OUTSIDE RECORDS SUMMARY | 2018-03-15 20:03 | XMS REPORT | Continuity of Care Document ---
Author Author [facility] Address Unknown Phone Unavailable Allergies Active Description Code Type Severity Reaction Onset Reported/Identified Relationship to Patient Clinical Status Yes No Known Drug Allergies [id number] Drug Allergy Mild N/A 12/15/2008 Yes Sulfa (Sulfonamide Antibiotics) [id number] Drug Allergy Unknown N/A 2017 Medications There is no data. Problems Date [...] DO V05.8 GARDASIL 11/24/2009 KOFI GRIER DO K V06.5 DT, TETANUS-DIPHTHERIA [TD] ,TDAP 09/14/2012 462 sore throat 09/14/2012 786.2 cough 09/14/2012 SUSANNAH LOPEZ APRN, MARISOL N 462 sore throat 09/14/2012 SUSANNAH LOPEZ SENIOR SUSTAINABILITY ADVISOR, MARISOL N 786.2 cough 09/14/2012 GRIER SABINE SILVAA K 462 SORE THROAT 09/14/2012 GRIER , KOFI K 786.2 COUGH 09/14/2012 GRIER DO, KOFI K 462 SORE THROAT 09/14/2012 CHERRIE SILVA, KOFI K 786.2 COUGH 06/14/2013 SUSANNAH LOPEZ APRN, MARISOL N 487.1 INFLUENZA WITH OTHER RESPIRATORY MANIFESTATIONS 06/14/2013 SABINE GRIER DOA K 487.1 INFLUENZA WITH OTHER RESPIRATORY MANIFESTATIONS 06/14/2013 GRIER SABINE SILVAA K 487.1 INFLUENZA WITH OTHER RESPIRATORY MANIFESTATIONS 03/07/2014 KOFI GRIER DO K 461.9 SINUSITIS ACUTE 03/07/2014 SABINE GRIER DOA K 461.9 SINUSITIS ACUTE 08/26/2014 GRIER SABINE SILVAA K 709.9 UNSPECIFIED DISORDER OF SKIN AND SUBCUTANEOUS TISSUE 09/27/2014 MADLLOYDA L BORDER MEASURER AND CUTTER Ot 709.9 07/31/2017 MADLLOYDA L BORDER MEASURER AND CUTTER Ot 709.9 SKIN DISORDER NOS 08/04/2017 MADLLOYDA L BORDER MEASURER AND CUTTER Ot 709.9 SKIN DISORDER NOS 08/05/2017 CHRIS WHEELER MD Ot Z34.01 ENCNTR FOR SUPRVSN OF NORMAL FIRST PREG, 08/05/2017 CHRIS WHEELER MD Ot Z3A.08 8 WEEKS GESTATION OF 08/20/2017 CHRIS WHEELER MD Ot Z34.01 ENCNTR FOR SUPRVSN OF NORMAL FIRST PREG, 08/20/2017 CHRIS WHEELER MD Ot Z3A.08 8 WEEKS GESTATION OF 08/30/2017 VAIBHAV ORNELAS DO Ot O20.0 THREATENED 08/30/2017 VAIBHAV ORNELAS DO Ot O20.9 HEMORRHAGE IN EARLY , UNSPECIFI 08/30/2017 JOHNSON DO, VAIBHAV K Ot O26.892 OTH RELATED CONDITIONS, SECOND 08/30/2017 JOHNSON SHEEBA SILVAA K Ot Z3A.12 12 WEEKS GESTATION OF 08/30/2017 VAIBHAV ORNELAS DO Ot Z67.41 TYPE O BLOOD, RH NEGATIVE 08/30/2017 VAIBHAV ORNELAS DO K Ot Z88.2 ALLERGY STATUS TO SULFONAMIDES STATUS 08/30/2017 CHRIS WHEELER MD Ot Z34.01 ENCNTR FOR SUPRVSN OF NORMAL FIRST PREG, 08/30/2017 CHRIS WHEELER MD Ot Z3A.08 8 WEEKS GESTATION OF 09/03/2017 CHRIS WHEELER MD Ot Z34.01 ENCNTR FOR SUPRVSN OF NORMAL FIRST PREG, 09/03/2017 CHRIS WHEELER MD Ot Z3A.08 8 WEEKS GESTATION OF 09/04/2017 VAIBHAV ORNELAS DO K Ot O20.0 THREATENED 09/04/2017 VAIBHAV ORNELAS DO K Ot O20.9 HEMORRHAGE IN EARLY , UNSPECIFI 09/04/2017 VAIBHAV ORNELAS DO K Ot O26.892 OTH RELATED CONDITIONS, SECOND 09/04/2017 SHEEBA ORNELAS DOA K Ot Z3A.12 12 WEEKS GESTATION OF 09/04/2017 VAIBHAV ORNELAS DO Ot Z67.41 TYPE O BLOOD, RH NEGATIVE 09/04/2017 SHEEBA ORNELAS DOA K Ot Z88.2 ALLERGY STATUS TO SULFONAMIDES STATUS 09/18/2017 CHRIS WHEELER MD Ot 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, 09/18/2017 CHRIS WHEELER MD Ot O46.8X2 OTHER ANTEPARTUM HEMORRHAGE, SECOND TRIM 09/18/2017 CHRIS WHEELER MD Ot Z34.92 ENCNTR FOR SUPRVSN OF NORMAL PREG, UNSP, 09/18/2017 CHRIS WHEELER MD Ot Z3A.15 15 WEEKS GESTATION OF 09/18/2017 CHRIS WHELEER MD Ot 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, 09/18/2017 CHRIS WHEELER MD Ot O46.8X2 OTHER ANTEPARTUM HEMORRHAGE, SECOND TRIM 09/18/2017 CHRIS WHEELER MD Ot Z3A.15 15 WEEKS GESTATION OF 10/01/2017 CHRIS WHEELER MD, Ot 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, 10/01/2017 CHRIS WHEELER MD, Ot O46.8X2 OTHER ANTEPARTUM HEMORRHAGE, SECOND TRIM 10/01/2017 CHRIS WHEELER MD Ot Z3A.15 15 WEEKS GESTATION OF 10/20/2017 CHRIS WHEELER MD Ot Z34.02 ENCNTR FOR SUPRVSN OF NORMAL FIRST PREG, 10/20/2017 CHRIS WHEELER MD Ot Z3A.19 19 WEEKS GESTATION OF 10/20/2017 CHRIS WHEELER MD, Ot Z34.02 ENCNTR FOR SUPRVSN OF NORMAL FIRST PREG, 10/20/2017 CHRIS WHEELER MD, Ot Z3A.19 19 WEEKS GESTATION OF 10/27/2017 CHRIS WHEELER MD Ot Z36.89 ENCOUNTER FOR OTHER SPECIFIED 10/27/2017 CHRIS WHEELER MD Ot Z3A.00 WEEKS OF GESTATION OF NOT SPEC 10/30/2017 CHRIS WHEELER MD Ot Z34.02 ENCNTR FOR SUPRVSN OF NORMAL FIRST PREG, 10/30/2017 CHRIS WHEELER MD Ot Z3A.19 19 WEEKS GESTATION OF 11/06/2017 CHRIS WHEELER MD Ot Z36.89 ENCOUNTER FOR OTHER SPECIFIED 11/06/2017 CHRIS WHEELER MD Ot Z3A.00 WEEKS OF GESTATION OF NOT SPEC 12/15/2017 JOSÉ MIGUEL KANG BORDER MEASURER AND CUTTER Ot 709.9 SKIN DISORDER NOS 01/01/2018 Ot E86.0 DEHYDRATION 01/01/2018 Ot O21.9 VOMITING OF , UNSPECIFIED 01/01/2018 Ot O99.280 ENDO, NUTRITIONAL AND METAB DISEASES COM 01/01/2018 Ot Z3A.00 WEEKS OF GESTATION OF NOT SPEC 01/12/2018 CHRIS WHEELER MD Ot Z34.01 ENCNTR FOR SUPRVSN OF NORMAL FIRST PREG, 01/12/2018 CHRIS WHEELER MD Ot Z3A.08 8 WEEKS GESTATION OF 01/12/2018 CHRIS WHEELER MD Ot 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, 01/12/2018 CHRIS WHEELER MD, Ot O46.8X2 OTHER ANTEPARTUM HEMORRHAGE, SECOND TRIM 01/12/2018 CHRIS WHEELER MD, Ot Z3A.15 15 WEEKS GESTATION OF 01/12/2018 CHRIS WHEELER MD, Ot Z34.02 ENCNTR FOR SUPRVSN OF NORMAL FIRST PREG, 01/12/2018 CHRIS WHEELER MD Ot Z3A.19 19 WEEKS GESTATION OF 01/12/2018 CHRIS WHEELER MD, Ot Z36.89 ENCOUNTER FOR OTHER SPECIFIED 01/12/2018 CHRIS WHEELER MD, Ot Z3A.00 WEEKS OF GESTATION OF NOT SPEC 02/01/2018 CHRIS WHEELER MD, Ot Z34.01 ENCNTR FOR SUPRVSN OF NORMAL FIRST PREG, 02/01/2018 CHRIS WHEELER MD, Ot Z3A.08 8 WEEKS GESTATION OF 02/01/2018 CHRIS WHEELER MD, Ot 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, 02/01/2018 CHRIS WHEELER MD, Ot O46.8X2 OTHER ANTEPARTUM HEMORRHAGE, SECOND TRIM 02/01/2018 CHRIS WHEELER MD, Ot Z3A.15 15 WEEKS GESTATION OF 02/01/2018 CHRIS WHEELER MD, Ot Z34.02 ENCNTR FOR SUPRVSN OF NORMAL FIRST PREG, 02/01/2018 CHRIS WHEELER MD, Ot Z3A.19 19 WEEKS GESTATION OF 02/01/2018 CHRIS WHEELER MD, Ot Z36.89 ENCOUNTER FOR OTHER SPECIFIED 02/01/2018 CHRIS WHEELER MD, Ot Z3A.00 WEEKS OF GESTATION OF NOT SPEC 02/01/2018 CHRIS WHEELER MD, Ot R10.2 PELVIC AND PERINEAL PAIN 02/01/2018 CHRIS WHEELER MD, Ot Z3A.34 34 WEEKS GESTATION OF 02/03/2018 CHRIS WHEELER MD, Ot N89.8 OTHER SPECIFIED NONINFLAMMATORY DISORDER 02/03/2018 CHRIS WHEELER MD Ot O99.89 OTH DISEASES AND CONDITIONS COMPL PREG/C 02/03/2018 CHRIS WHEELER MD, Ot Z3A.34 34 WEEKS GESTATION OF 02/04/2018 CHRIS WHEELER MD, Ot R10.2 PELVIC AND PERINEAL PAIN 02/04/2018 CHRIS WHEELER MD, Ot Z3A.34 34 WEEKS GESTATION OF 02/06/2018 CHRIS WHEELER MD, Ot N89.8 OTHER SPECIFIED NONINFLAMMATORY DISORDER 02/06/2018 CHRIS WHEELER MD Ot O99.89 OTH DISEASES AND CONDITIONS COMPL PREG/C 02/06/2018 CHRIS WHEELER MD, Ot Z3A.34 34 WEEKS GESTATION OF 02/10/2018 CHRIS WHEELER MD, Ot O16.3 UNSPECIFIED MATERNAL HYPERTENSION, THIRD 02/10/2018 CHRIS WHEELER MD, Ot Z36.89 ENCOUNTER FOR OTHER SPECIFIED 02/10/2018 CHRIS WHEELER MD, Ot Z3A.36 36 WEEKS GESTATION OF 02/10/2018 CHRIS WHEELER MD, Ot O16.3 UNSPECIFIED MATERNAL HYPERTENSION, THIRD 02/10/2018 CHRIS WHEELER MD, Ot Z3A.36 36 WEEKS GESTATION OF 02/18/2018 CHRIS WHEELER MD, Ot 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, 02/18/2018 CHRIS WHEELER MD, Ot O46.8X2 OTHER ANTEPARTUM HEMORRHAGE, SECOND TRIM 02/18/2018 CHRIS WHEELER MD, Ot Z3A.15 15 WEEKS GESTATION OF 02/18/2018 CHRIS WHEELER MD, Ot Z34.02 ENCNTR FOR SUPRVSN OF NORMAL FIRST PREG, 02/18/2018 CHRIS WHEELER MD, Ot Z3A.19 19 WEEKS GESTATION OF 02/18/2018 CHRIS WHEELER MD, Ot Z36.89 ENCOUNTER FOR OTHER SPECIFIED 02/18/2018 CHRIS WHEELER MD, Ot Z3A.00 WEEKS OF GESTATION OF NOT SPEC 02/25/2018 CHRIS WHEELER MD, Ot O16.3 UNSPECIFIED MATERNAL HYPERTENSION, THIRD 02/25/2018 CHRIS WHEELER MD, Ot Z3A.36 36 WEEKS GESTATION OF Procedures Code Description [place] [address] STREP A (IN-HOUSE) 09/14/2012 14652 INFLUENZA A & B (IN-HOUSE) 06/14/2013 94334 US SOFT TISSUE (SPECIFY LOCATION) 08/26/2014 Results Test Result Range CULTURE, URINE - 07/29/17 14:47 CULTURE, URINE, ROUTINE SEE NOTE NRG CULTURE, GENITAL - 07/29/17 14:47 CULTURE, GENITAL SEE NOTE NRG CULTURE, URINE - 08/26/17 11:18 CULTURE, URINE, ROUTINE SEE NOTE NRG Complete blood count (CBC) with automated white blood cell (WBC) differential - 08/29/17 23:20 Blood leukocytes automated count (number/volume) 7.2 10*3/uL 4.3-11.0 Blood erythrocytes automated count (number/volume) 4.06 10*6/uL 4.35-5.85 Venous blood hemoglobin measurement (mass/volume) 12.0 g/dL 11.5-16.0 Blood hematocrit (volume fraction) 34 % 35-52 Automated erythrocyte mean corpuscular volume 83 [foz_us] 80-99 Automated erythrocyte mean corpuscular hemoglobin (mass per erythrocyte) 30 pg 25-34 Automated erythrocyte mean corpuscular hemoglobin concentration measurement ( mass/volume) 36 g/dL 32-36 Automated erythrocyte distribution width ratio 13.8 % 10.0-14.5 Automated blood platelet count (count/volume) 198 10*3/uL 130-400 Automated blood platelet mean volume measurement 11.1 [foz_us] 7.4-10.4 Automated blood neutrophils/100 leukocytes 68 % 42-75 Automated blood lymphocytes/100 leukocytes 22 % 12-44 Blood monocytes/100 leukocytes 8 % 0-12 Automated blood eosinophils/100 leukocytes 2 % 0-10 Automated blood basophils/100 leukocytes 1 % 0-10 Blood neutrophils automated count (number/volume) 4.9 10*3 1.8-7.8 Blood lymphocytes automated count (number/volume) 1.6 10*3 1.0-4.0 Blood monocytes automated count (number/volume) 0.6 10*3 0.0-1.0 Automated eosinophil count 0.1 10*3/uL 0.0-0.3 Automated blood basophil count (count/volume) 0.0 10*3/uL 0.0-0.1 Whole blood basic metabolic panel - 08/29/17 23:20 Serum or plasma sodium measurement (moles/volume) 138 mmol/L 135-145 Serum or plasma potassium measurement (moles/volume) 3.5 mmol/L 3.6-5.0 Serum or plasma chloride measurement (moles/volume) 106 mmol/L 98-107 Carbon dioxide 20 mmol/L 21-32 Serum or plasma anion gap determination (moles/volume) 12 mmol/L 5-14 Serum or plasma urea nitrogen measurement (mass/volume) 12 mg/dL 7-18 Serum or plasma creatinine measurement (mass/volume) 0.68 mg/dL 0.60-1.30 Serum or plasma urea nitrogen/creatinine mass ratio 18 NRG Serum or plasma creatinine measurement with calculation of estimated glomerular filtration rate > NRG Serum or plasma glucose measurement (mass/volume) 105 mg/dL 70-105 Serum or plasma calcium measurement (mass/volume) 10.0 mg/dL 8.5-10.1 RH IMMUNE GLOBULIN RHOPHYLAC - 08/29/17 23:20 RH IMMUNE GLOBULIN RHOPHYLAC PRSMD TRFSD 08/30/17 0048 NRG ABO+Rh group - 08/29/17 23:20 ABO+Rh group ON NRG Transfusion band number TNP NRG [id number] - 08/29/17 23:20 [id number] 300ug NRG Lot number - 08/29/17 23:20 Lot number [id number] NRG cell screen - 08/29/17 23:20 cell screen 05/09/19 NRG Serum or plasma choriogonadotropin measurement (units/volume) - 08/29/17 23:20 Serum or plasma choriogonadotropin measurement (units/volume) 76759 m[iU]/mL <5 CULTURE, URINE - 10/01/17 14:30 CULTURE, URINE, ROUTINE SEE NOTE NRG GLUCOSE FORREST 1 HOUR - 12/02/17 15:33 GLUCOSE, POSTPRANDIAL/ 1 HOUR 97 mg/dL See Note: CBC - 12/02/17 15:33 WHITE BLOOD CELL COUNT 8.6 Thousand/uL 3.8-10.8 RED BLOOD CELL COUNT 3.37 Million/uL 3.80-5.10 HEMOGLOBIN 9.5 g/dL 11.7-15.5 HEMATOCRIT 28.3 % 35.0-45.0 MCV 84.0 fL 80.0-100.0 MCH 28.2 pg 27.0-33.0 MCHC 33.6 g/dL 32.0-36.0 RDW 13.0 % 11.0-15.0 PLATELET COUNT 197 Thousand/uL 140-400 MPV 11.0 fL 7.5-12.5 ABSOLUTE NEUTROPHILS 6674 cells/uL 4517-9990 ABSOLUTE LYMPHOCYTES 1084 cells/uL 850-3900 ABSOLUTE MONOCYTES 757 cells/uL 200-950 ABSOLUTE EOSINOPHILS 52 cells/uL 15-500 ABSOLUTE BASOPHILS 34 cells/uL 0-200 NEUTROPHILS 77.6 % NRG LYMPHOCYTES 12.6 % NRG MONOCYTES 8.8 % NRG EOSINOPHILS 0.6 % NRG BASOPHILS 0.4 % NRG ANTIBODY SCREEN - 12/31/17 14:58 ANTIBODY SCREEN, RBC W/REFL ID, TITER AND AG NO ANTIBODIES DETECTED NRG Complete urinalysis with reflex to culture - 01/01/18 08:30 Urine color determination YELLOW NRG Urine clarity determination CLEAR NRG Urine pH measurement by test strip 5 5-9 Specific gravity of urine by test strip 1.030 1.016- 1.022 Urine protein assay by test strip, semi-quantitative 2+ NEGATIVE Urine glucose detection by automated test strip NEGATIVE NEGATIVE Erythrocytes detection in urine sediment by light microscopy NEGATIVE NEGATIVE Urine ketones detection by automated test strip 4+ NEGATIVE Urine nitrite detection by test strip NEGATIVE NEGATIVE Urine total bilirubin detection by test strip 1+ NEGATIVE Urine urobilinogen measurement by automated test strip (mass/volume) NORMAL NORMAL Urine leukocyte esterase detection by dipstick 1+ NEGATIVE Automated urine sediment erythrocyte count by microscopy (number/high power field) NONE NRG Automated urine sediment leukocyte count by microscopy (number/high power field ) [HPF] NRG Bacteria detection in urine sediment by light microscopy FEW NRG Squamous epithelial cells detection in urine sediment by light microscopy 5-10 NRG Crystals detection in urine sediment by light microscopy NONE NRG Casts detection in urine sediment by light microscopy NONE NRG Mucus detection in urine sediment by light microscopy MODERATE NRG Complete urinalysis with reflex to culture NO NRG Bacterial urine culture - 01/01/18 08:30 Bacterial urine culture RML NRG COLONY COUNT . NRG URIC ACID, SERUM - 01/28/18 15:03 URIC ACID 3.4 mg/dL 2.5-7.0 PROTEIN, TOTAL W/CREAT, RANDOM URINE - 01/28/18 15:03 CREATININE, RANDOM URINE 246 mg/dL 20-320 PROTEIN/CREATININE RATIO 220 mg/g creat 21-161 PROTEIN, TOTAL, RANDOM UR 54 mg/dL 5-24 CBC - 01/28/18 15:03 WHITE BLOOD CELL COUNT 10.1 Thousand/uL 3.8-10.8 RED BLOOD CELL COUNT 3.68 Million/uL 3.80-5.10 HEMOGLOBIN 9.0 g/dL 11.7-15.5 HEMATOCRIT 28.8 % 35.0-45.0 MCV 78.3 fL 80.0-100.0 MCH 24.5 pg 27.0-33.0 MCHC 31.3 g/dL 32.0-36.0 RDW 14.5 % 11.0-15.0 PLATELET COUNT 263 Thousand/uL 140-400 MPV 10.7 fL 7.5-12.5 ABSOLUTE NEUTROPHILS 7858 cells/uL 8378-9481 ABSOLUTE LYMPHOCYTES 1313 cells/uL 850-3900 ABSOLUTE MONOCYTES 818 cells/uL 200-950 ABSOLUTE EOSINOPHILS 61 cells/uL 15-500 ABSOLUTE BASOPHILS 51 cells/uL 0-200 NEUTROPHILS 77.8 % NRG LYMPHOCYTES 13.0 % NRG MONOCYTES 8.1 % NRG EOSINOPHILS 0.6 % NRG BASOPHILS 0.5 % NRG CULTURE, GROUP B STREP (VAGINAL) - 02/11/18 15:44 STREPTOCOCCUS, GROUP B CULTURE SEE NOTE NRG Encounters ACCT No. Visit Date/Time Discharge Status Pt. Type Provider Facility Loc./Unit Complaint [id number] 08/26/2014 14:09:00 08/26/2014 23:59:59 CLS Outpatient KOFI GRIER DO [id number] 03/07/2014 10:44:00 03/07/2014 23:59:59 CLS Outpatient KOFI GRIER DO [id number] 06/14/2013 14:26:00 06/14/2013 23:59:59 CLS Outpatient MARISOL MISHRA APRN Sis [id number] 09/14/2012 12:01:00 Document Registration [id number] 12/31/2017 13:40:00 12/31/2017 23:59:59 CLS Outpatient [facility] [id number] 02/11/2018 14:00:00 Document Registration [id number] 01/28/2018 14:00:00 Document Registration [id number] 12/31/2017 13:40:00 Document Registration [id number] 12/02/2017 14:00:00 Document Registration [id number] 10/01/2017 14:00:00 Document Registration [id number] 08/26/2017 11:00:00 Document Registration [id number] 07/29/2017 14:20:00 Document Registration [id number] 09/08/2014 05:47:06 ACT Document Registration [id number] 02/09/2018 12:48:00 02/09/2018 23:59:59 CLS Outpatient CHRIS WHEELER MD [facility] RAD ELEVATED BLOOD PRESSURE AFFECTING [id number] 02/03/2018 16:46:00 02/03/2018 23:59:59 CLS Outpatient CHRIS WHEELER MD [facility] WSo LEAKING FLUID [id number] 02/01/2018 12:37:00 02/01/2018 14:20:00 DIS Outpatient CHRIS WHEELER MD [facility] WSo PAIN,PRESSURE [id number] 10/24/2017 09:50:00 10/24/2017 23:59:59 CLS Outpatient CHRIS WHEELER MD [facility] RAD EVALUATE ANATOMY NOT SEEN ON PRIOR SONOGRAM [id number] 10/17/2017 12:13:00 10/17/2017 23:59:59 CLS Outpatient CHRIS WHEELER MD [facility] RAD CARE FIRST IN SECOND TRIMESTER [id number] 09/17/2017 13:42:00 09/17/2017 23:59:59 CLS Outpatient CHRIS WHEELER MD [facility] RAD O41.8X10 DISORDERS OF AMNIOTIC FLUID AND MEMBRANES [id number] 08/29/2017 22:47:00 08/30/2017 01:05:00 DIS Emergency VAIBHAV ORNELAS DO [facility] ER VAGINAL BLEEDING [id number] 08/04/2017 14:25:00 08/04/2017 23:59:59 CLS Outpatient CHRIS WHEELER MD [facility] RAD Z34.01 CARE, FIRST TRIMESTER [id number] 09/07/2014 14:29:00 09/07/2014 23:59:59 CLS Outpatient JOSÉ MIGUEL KANG [facility] RAD DISORDER OF SKIN AND SUBCUTANEOUS TISSUE [id number] 03/15/2018 19:05:00 ACT Inpatient CHRIS WHEELER MD [facility] LDRP INDUCTION [id number] 01/01/2018 09:05:00 Document Registration
[2018-03-15 20:12] LABS: BASOPHILS % (AUTO) 0 % (0-10); EOSINOPHILS % (AUTO) 0 % (0-10); HEMATOCRIT 26 % (35-52); HEMOGLOBIN 8.1 G/DL (11.5-16.0); LYMPHOCYTES # (AUTO) 1.2 X 10^3 (1.0-4.0); LYMPHOCYTES % (AUTO) 14 % (12-44); MEAN CORPUSCULAR HEMOGLOBIN 22 PG (25-34); MEAN CORPUSCULAR HGB CONC 31 G/DL (32-36); MEAN CORPUSCULAR VOLUME 70 FL (80-99); MEAN PLATELET VOLUME 10.9 FL (7.4-10.4); MONOCYTES # (AUTO) 0.5 X 10^3 (0.0-1.0); MONOCYTES % (AUTO) 6 % (0-12); NEUTROPHILS # (AUTO) 6.7 X 10^3 (1.8-7.8); NEUTROPHILS % (AUTO) 79 % (42-75); PLATELET COUNT 297 10^3/uL (130-400); RED BLOOD COUNT 3.71 10^6/uL (4.35-5.85); RED CELL DISTRIBUTION WIDTH 17.4 % (10.0-14.5); WHITE BLOOD COUNT 8.4 10^3/uL (4.3-11.0)
[2018-03-15 21:00] VITALS: BP 119/60
[2018-03-15 22:00] VITALS: BP 119/60
[2018-03-15] MEDS ORDERED: CATHETER FLUSH 10 ML SYR IV SCH (22:00)
[2018-03-15 23:00] VITALS: BP 131/77
[2018-03-15] MEDS ORDERED: ONDANSETRON 4 MG/2 ML (SDV) Z0FRAN ONE (23:09)
[2018-03-15] MEDS ORDERED: fentaNYL INJECTION 100 MCG/2 ML AMP ONE (23:09)
[2018-03-15] MEDS ORDERED: fentaNYL INJECTION 100 MCG/2 ML AMP IVP PRN (23:30)
[2018-03-15] MEDS ORDERED: ONDANSETRON 4 MG/2 ML (SDV) Z0FRAN IVP PRN (23:30)
[2018-03-15 23:37] VITALS: BP 120/66
[2018-03-15] MEDS ORDERED: SUFENTA 0.6MCG/ML BUPIVA 0.125 100 ML ONE (23:47)
[2018-03-16] VITALS (84 sets, daily range): BP systolic 113–156; BP diastolic 55–93
[2018-03-16] MEDS ORDERED: MISOPROSTOL 100 MCG (CYTOTEC) TAB PO SCH
[2018-03-16] MEDS ORDERED: LIDOCAINE PF 2% 5 ML (XYLOCAINE) VIAL ONE ×4 (00:23→07:14)
[2018-03-16] MEDS ORDERED: BUPIVACAINE 0.25% 30 ML (SENSORCAINE) VIAL ONE ×2 (00:23→05:24)
[2018-03-16] MEDS ORDERED: fentaNYL INJECTION 100 MCG/2 ML AMP ONE (00:24)
[2018-03-16] MEDS ORDERED: LACTATED RINGERS 1,000 ML IV ONE ×2 (00:39)
[2018-03-16] MEDS: EPIDURAL (SUFENTA 0.6MCG/ML BUPIVA 0.125%) 100 ML BAG EPI PRN ×2 (00:42→09:21)
[2018-03-16] MEDS ORDERED: METOCLOPRAMIDE INJ 10 MG/2 ML (REGLAN) IV PRN (00:45)
[2018-03-16] MEDS ORDERED: ONDANSETRON 4 MG/2 ML (SDV) Z0FRAN IV PRN (00:45)
[2018-03-16] MEDS ORDERED: NALOXONE 0.4 MG/ML 1 ML (NARCAN) VIAL IV PRN (00:45)
[2018-03-16] MEDS: D5 LR IV SOLUTION 1,000 ML IV SCH (03:24)
[2018-03-16] MEDS ORDERED: PREN-142 PO (08:21)
[2018-03-16] MEDS ORDERED: FERR325T18 PO (08:21)
--- NOTE | 2018-03-16 08:25 | History & Physical-OB ---
OB - Chief Complaint & HPI Date/Time Date of Admission: Date of Admission: Mar 15, 2018 at 7:05 pm Date seen by a Provider: Mar 16, 2018 Time Seen by a Provider: 08:15 Chief Complaint/History OB-Reason for Admission/Chief: Induction of Labor Hx : 1 Expected Date of Delivery: Mar 11, 2018 Gestational Age in Weeks: 40 Gestational Age in Days: 4 Indication for induction: post dates History of Labs O neg, antibody neg. RPR/HIV/HepB NR. GC/chlamydia neg. 1 hour glucola nml. GBS neg. Allergies and Home Medications Allergies Coded Allergies: Sulfa (Sulfonamide Antibiotics) (Verified Allergy, Unknown, 08/29/17) Home Medications Ferrous Sulfate 325 Mg Tablet, 325 MG PO DAILY, (Reported) Vit No.124/Iron/FA 1 Each Tablet, 1 EACH PO DAILY, (Reported) Patient Home Medication List Home Medication List Reviewed: Yes OB - History Hx of Present Care: Yes Ultrasounds: Normal mid trimester US Obstetrical Complications: None Obstetrical History Hx : 1 Hx Para: 0 Delivery History Adverse Rxn to Tranfusion: No Patient Past Medical History PMHx: Denies PSurgHx: Denies Social History/Family History HIV/AIDS: No Recent Infectious Disease Expo: No Sexually Transmitted Disease: No Alcohol Use: Denies Use Recreational Drug Use: No Smoking Cessation: Never smoker 2nd Hand Smoke Exposure: No Immunizations Hepatitis A: Yes Hepatitis B: Yes Tetanus Booster (TDap): Less than 5yrs Date of Influenza Vaccine: Mar 11, 2018 Rubella: immune RPR/VDRL: Negative GBS Status: Negative HBsAG: Negative OB - Admission Exam Physical Exam Vitals: Vital Signs 03/16/18 03/16/18 03/16/18 04:57 05:45 07:00 Temp 99.1 Pulse 118 Resp 18 B/P (MAP) 142/65 (90) Pulse Ox 98 O2 Delivery Room Air O2 Flow Rate 15.00 HEENT: NCAT Abdomen: Non tender Extremities: Normal Cervical Dilatation: 7cm Effacement: 100% Station: 0 Membranes: Ruptured Heart Rate: 150's Decelerations: No Decelerations Short Term Variability: Present Coloring Checker Variability: Average (6-25) Contractions on Admission: 6-10 Minutes Apart Brown Scoring Tool (Modified) Dilation (cm): 1-2cm (1) Effacement (%): 51-79% (2) Descent/Station: -3 (0) Cervix Consistency: Medium(1) Cervix Position: Anterior (2) Subtract 1 point for: Postdate (-1), Nulliparity (-1) Brwon Score: 4 Labs Laboratory Tests Test 03/15/18 20:02 Range/Units White Blood Count 8.4 4.3-11.0 10^3/uL Red Blood Count 3.71 L 4.35-5.85 10^6/uL Hemoglobin 8.1 L 11.5-16.0 G/DL Hematocrit 26 L 35-52 % Mean Corpuscular Volume 70 L 80-99 FL Mean Corpuscular Hemoglobin 22 L 25-34 PG Mean Corpuscular Hemoglobin Concent 31 L 32-36 G/DL Red Cell Distribution Width 17.4 H 10.0-14.5 % Platelet Count 297 130-400 10^3/uL Mean Platelet Volume 10.9 H 7.4-10.4 FL Neutrophils (%) (Auto) 79 H 42-75 % Lymphocytes (%) (Auto) 14 12-44 % Monocytes (%) (Auto) 6 0-12 % Eosinophils (%) (Auto) 0 0-10 % Basophils (%) (Auto) 0 0-10 % Neutrophils # (Auto) 6.7 1.8-7.8 X 10^3 Lymphocytes # (Auto) 1.2 1.0-4.0 X 10^3 Monocytes # (Auto) 0.5 0.0-1.0 X 10^3 Eosinophils # (Auto) 0.0 0.0-0.3 10^3/uL Basophils # (Auto) 0.0 0.0-0.1 10^3/uL OB - Assessment/Plan/Diagnosis Assessment Assessment: induction of labor Admission Dx 40 weeks gestation Induction for post-dates Admission Status: Inpatient Order (span 2 midnights) Reason for Inpatient Admission: Induction, labor and delivery and course Plan Plan: Induction Induction Method: per Misoprostol Protocol Copy Copies To 1: CHRIS WHEELER MD, BETHANY N MD Mar 16, 2018 8:24 am
[2018-03-16] MEDS ORDERED: MINERAL OIL CONCENTRATE 99.9% 15 ML UDC ONE (09:36)
[2018-03-16] MEDS ORDERED: LIDOCAINE/EPI 2% 1:200,00 (XYLOCAINE) 10 ML VIAL ONE (09:36)
[2018-03-16] MEDS ORDERED: OXYTOCIN/NORMAL SALINE 500 ML IV ONE ×2 (09:41→11:02)
[2018-03-16] MEDS: OXYTOCIN/NORMAL SALINE 500 ML IV SCH ×2 (10:34→11:05)
[2018-03-16] MEDS ORDERED: MISOPROSTOL 200 MCG (CYTOTEC) TABLET ONE (10:43)
--- NOTE | 2018-03-16 11:52 | OB Labor & Delivery Record ---
Vag Delivery Note Vag Delivery Note Date of Delivery: 03/16/18 Preoperative Diagnosis: Greta Bearden is a 17 /Para 1 / 0,Gestational Age (wks) 40with 4 days Postoperative Diagnosis: Same Surgeon: CHRIS WHEELER Anesthesia: Epidural Delivery Type: Spontaneous vaginal delivery Findings: Viable female , apgars 8/9, weight 3945 grams Lacerations: right periurethral abrasion, second degree perineal laceration Intact placenta with 3 vessel cord. No nuchal cord, body cord or shoulder dystocia Cytotec 800 mcg placed for hemorrhage prophylaxis Estimated Blood Loss: 400 ml Complications: None Condition: Stable Description of Procedure: The patient is a G1 who presented for IOL at 40w3d due to postdates. She was admitted and informed consent was obtained. Her labor course was remarkable for maternal max temp 100.3 She progressed to complete dilatation and began to push. She was then set up for delivery. The infant's head was delivered atraumatically in the DEREK position. The shoulders and remainder of the infant's body were then delivered without difficulty. Upon delivery, the head was held below the level of the perineum and the mouth and nares were bulb suctioned. The cord was doubly clamped and cut and the infant was handed off to the pediatric staff. An intact placenta with 3-vessel cord delivered via Raya and there was found to be minimal bleeding.~ Vigorous fundal massage was performed and the fundus was found to be firm. IV oxytocin was given. Examination of the vagina and perineum revealed a right periurethral abrasion hemostatic not requiring repair and second degree perineal laceration repaired in the usual fashion with 3-0 rapide suture. Following the repair, sponge, instrument and needle counts were correct. Mom and baby were both in stable condition in the labor suite. Vitals - Labs Vital Signs - I&O Vital Signs 03/16/18 03/16/18 03/16/18 04:57 08:09 08:38 Temp 100.2 Pulse 100 Resp 20 B/P (MAP) 130/74 (92) Pulse Ox 97 O2 Delivery Room Air O2 Flow Rate 15.00 Labs Laboratory Tests 03/15/18 20:02: White Blood Count 8.4, Red Blood Count 3.71L, Hemoglobin 8.1L, Hematocrit 26L, Mean Corpuscular Volume 70L, Mean Corpuscular Hemoglobin 22L, Mean Corpuscular Hemoglobin Concent 31L, Red Cell Distribution Width 17.4H, Platelet Count 297, Mean Platelet Volume 10.9H, Neutrophils (%) (Auto) 79H, Lymphocytes (%) (Auto) 14, Monocytes (%) (Auto) 6, Eosinophils (%) (Auto) 0, Basophils (%) (Auto) 0, Neutrophils # (Auto) 6.7, Lymphocytes # (Auto) 1.2, Monocytes # (Auto) 0.5, Eosinophils # (Auto) 0.0, Basophils # (Auto) 0.0 CHRIS WHELEER MD Mar 16, 2018 11:52 am
[2018-03-16] MEDS ORDERED: TETANUS,DIPTH,PERTUSS P/F (BOOSTRIX) 0.5 ML VIAL IM ONE (13:45)
[2018-03-16] MEDS ORDERED: BENZOCAINE/MENTHOL (DERMOPLAST) 56 ML CAN TP PRN (13:45)
[2018-03-16] MEDS ORDERED: MEASLES,MUMPS,RUBELLA 1 EA INJ SQ ONE (13:45)
[2018-03-16] MEDS: IBUPROFEN 600 MG (MOTRIN) TAB PO SCH (14:05)
[2018-03-16] MEDS: WITCH HAZEL(TUCKS) 40 EA JAR TOP PRN (17:00)
[2018-03-17 02:24] VITALS: BP 93/47
[2018-03-17 04:44] LABS: BASOPHILS % (AUTO) 0 % (0-10); EOSINOPHILS % (AUTO) 0 % (0-10); HEMATOCRIT 22 % (35-52); LYMPHOCYTES # (AUTO) 2.2 X 10^3 (1.0-4.0); LYMPHOCYTES % (AUTO) 19 % (12-44); MEAN CORPUSCULAR HEMOGLOBIN 22 PG (25-34); MEAN CORPUSCULAR HGB CONC 31 G/DL (32-36); MEAN CORPUSCULAR VOLUME 72 FL (80-99); MEAN PLATELET VOLUME 11.2 FL (7.4-10.4); MONOCYTES # (AUTO) 1.1 X 10^3 (0.0-1.0); MONOCYTES % (AUTO) 10 % (0-12); NEUTROPHILS # (AUTO) 8.5 X 10^3 (1.8-7.8); NEUTROPHILS % (AUTO) 71 % (42-75); PLATELET COUNT 253 10^3/uL (130-400); RED CELL DISTRIBUTION WIDTH 17.1 % (10.0-14.5); WHITE BLOOD COUNT 11.9 10^3/uL (4.3-11.0)
[2018-03-17 04:46] LABS: HEMOGLOBIN 6.6 G/DL (11.5-16.0)
[2018-03-17 06:20] VITALS: BP 101/55
--- NOTE | 2018-03-17 08:43 | Progress Note (SOAP) ---
Subjective Subjective/Events-last exam Pt reports feeling well. C/o sore throat but otherwise no complaints. Pumping breast milk. Denies dizziness, SOA or heavy bleeding. Review of Systems Date Seen by Provider: Mar 17, 2018 Time Seen by Provider: 08:43 Objective Exam Last Set of Vital Signs Vital Signs Date Time Temp Pulse Resp B/P (MAP) Pulse Ox O2 Delivery O2 Flow Rate FiO2 03/17/18 06:20 99.5 82 18 101/55 (70) 98 Room Air 03/16/18 10:00 15.00 Capillary Refill : I&O Intake and Output 03/17/18 00:00 Intake Total 2000 ml Balance 2000 ml Intake IV Total 2000 ml General: Alert, Oriented X3, Cooperative Psych/Mental Status: Mood NL Results/Procedures Lab Laboratory Tests 03/17/18 04:30: White Blood Count 11.9H, Red Blood Count 3.00L, Hemoglobin 6.6*L, Hematocrit 22L , Mean Corpuscular Volume 72L, Mean Corpuscular Hemoglobin 22L, Mean Corpuscular Hemoglobin Concent 31L, Red Cell Distribution Width 17.1H, Platelet Count 253, Mean Platelet Volume 11.2H, Neutrophils (%) (Auto) 71, Lymphocytes (% ) (Auto) 19, Monocytes (%) (Auto) 10, Eosinophils (%) (Auto) 0, Basophils (%) ( Auto) 0, Neutrophils # (Auto) 8.5H, Lymphocytes # (Auto) 2.2, Monocytes # (Auto ) 1.1H, Eosinophils # (Auto) 0.0, Basophils # (Auto) 0.0 Assessment/Plan Assessment/Plan Assessment & Plan 1. PPD #1 s/p at 40w5d 2. Rh negative - Mom O neg; baby O+; will receive Rhogam 3. Anemia of - Hb 8.1 (pre-delivery) --> 6.6; asymptomatic. Increased ferrous sulfate to 325mg BID Continue routine care. Clinical Quality Measures DVT/VTE Risk/Contraindication: Risk Factor Score Per Nursin RFS Level Per Nursing on Admit: 1=Low/No VTE PPX KOFI GRIER DO Mar 17, 2018 08:43
[2018-03-17 09:00] VITALS: BP 107/65
[2018-03-17] MEDS ORDERED: FERROUS SULF 325 MG (IRON) TAB PO SCH (09:00)
[2018-03-17] MEDS: FERROUS SULF 325 MG (IRON) TAB PO SCH ×2 (09:12→16:08)
[2018-03-17] MEDS: PRENATAL VITAMIN 1 EA TAB PO SCH (09:13)
[2018-03-17] MEDS: IBUPROFEN 600 MG (MOTRIN) TAB PO SCH ×3 (09:13→21:09)
[2018-03-17] MEDS: WITCH HAZEL(TUCKS) 40 EA JAR TOP PRN (09:29)
[2018-03-17 12:00] VITALS: BP 119/50
[2018-03-17] MEDS: CATHETER FLUSH 10 ML SYR IV SCH ×2 (14:30→14:31)
--- NOTE | 2018-03-17 14:41 | Anesthesia-Regional Post-Op ---
Regional Patient Condition Mental Status: Alert, Oriented x3 Circulation: Same as Pre-Op Headache: Absent Sensation: Full Recovery Motor Block: Absent Post Op Complications Complications None Follow Up Care/Instructions Patient Instructions None needed. Anesthesia/Patient Condition Patient is doing well, no complaints, stable vital signs, no apparent adverse anesthesia problems. No complications reported per nursing. YOSEPH SANDERSON CRNA Mar 17, 2018 14:41
[2018-03-17 16:00] VITALS: BP 116/74
[2018-03-17 20:00] VITALS: BP 114/73
[2018-03-18 03:43] VITALS: BP 98/50
[2018-03-18 08:00] VITALS: BP 123/78
[2018-03-18] MEDS: IBUPROFEN 600 MG (MOTRIN) TAB PO SCH ×2 (08:40→14:02)
[2018-03-18] MEDS: FERROUS SULF 325 MG (IRON) TAB PO SCH (08:40)
[2018-03-18] MEDS: PRENATAL VITAMIN 1 EA TAB PO SCH (08:40)
[2018-03-18] MEDS ORDERED: FERR325T18 PO (09:19)
--- NOTE | 2018-03-18 09:21 | Discharge Instructions ---
Discharge Inst-Women's Serv Depart Medications New, Converted or Re-Newed RX: Transmitted to Pharmacy ([facility]) New Medications: Ferrous Sulfate (Ferrous Sulfate) 325 Mg Tablet 325 MG PO BID WITH MEALS, #60 TAB 0 Refills Continued Medications: Vit No.124/Iron/FA ( Vitamin Tablet) 1 Each Tablet 1 EACH PO DAILY, TAB Follow Up/Instructions Goal/Follow Up: Follow-up with Dr. Tapia in 6 wk Activity Activity: Activity as Tolerated Driving Instructions: You May Drive Nothing Inside Vagina: No Douching, No [place], No Tampons Diet Discharge Diet: No Restrictions Symptoms to Report to : Bleeding Excessive, Pain Increased, Fever Over 101 Degrees F, Vaginal Bleeding Increase, Vaginal Discharge Foul, Shortness of Breath For Any Problems or Questions: Contact Your Physician Copies To 1: CHRIS TAPIA MD, LINDA K DO Mar 18, 2018 09:20
--- NOTE | 2018-03-18 09:23 | Discharge Summary ---
Diagnosis/Chief Complaint Date of Admission Mar 15, 2018 at 19:05 Date of Discharge Mar 18, 2018 Admission Diagnosis Admission Diagnosis 1. IOL at 40w5d for post-dates 2. Rh negative 3. Anemia of Discharge Diagnosis 1. PPD #2 s/p at 40w5d 2. Rh negative - Mom O neg; baby O+; will receive Rhogam 3. Anemia of - Hb 8.1 (pre-delivery) --> 6.6; asymptomatic. Increased ferrous sulfate to 325mg BID Discharge Summary-OBS Procedures None. Discharge Physical Examination Allergies: Coded Allergies: Sulfa (Sulfonamide Antibiotics) (Verified Allergy, Unknown, 08/29/17) Vitals & I&Os Vital Sign - Last 12Hours Date Time Temp Pulse Resp B/P (MAP) Pulse Ox O2 Delivery O2 Flow Rate FiO2 03/18/18 03:43 98.6 83 18 98/50 (66) 98 Room Air 03/16/18 10:00 15.00 General Appearance: Alert, Oriented X3, Cooperative Psych/Mental Status: Mood NL Hospital Course routine post- care Discharge Instructions to patient/family Please see electronic discharge instructions given to patient. Discharge Medications Reviewed and agree with Discharge Medication list on patient's Discharge Instruction sheet Clinical Quality Measures DVT/VTE Risk/Contraindication: Risk Factor Score Per Nursin RFS Level Per Nursing on Admit: 1=Low/No VTE PPX KOFI GRIER DO Mar 18, 2018 09:22
[2018-03-18 12:00] VITALS: BP 127/76
[2018-03-18 16:00] VITALS: BP 127/76
--- NOTE | 2018-03-23 22:07 | Physician Query Clarification ---
PQ-Link Path Diagnosis Admission/Discharge Admission Date: Mar 15, 2018 at 19:05 Discharge Date: Mar 18, 2018 at 16:00 The medical record reflects the following: Temperature of 100.3 during delivery The pathology report findings document: Acute chorioamnionitis Question: Do you agree with the pathology report findings? Please document a response below. PHYSICIAN RESPONSE Pathology Report Findings: Yes,agree w/path dx as documented In responding to this query, please exercise your independent professional judgment. The purpose of this communication is to more accurately reflect the complexity of your patients condition. The fact that a question is asked does not imply that any particular answer is desired or expected. Thank you for your timely response to this clarification. Requestors name: [ ] Phone # [ ] THIS PHYSICIAN QUERY FORM IS A PERMANENT PART OF THE MEDICAL RECORD CHERRIE BLAIR Mar 23, 2018 22:07 CHRIS WHEELER MD Mar 24, 2018 13:33
== END 2018-03-18 16:00 | disposition home or self-care (01) | DRG 807 ==
LOC: LDRP 19:05
PROVIDERS: ADMIT Family Medicine; ATTEND Family Medicine
PROC: 10E0XZZ Delivery of Products of Conception, External Approach (ICD-10-PCS; principal; 2018-03-16)
PROC: 0KQM0ZZ Repair Perineum Muscle, Open Approach (ICD-10-PCS; 2018-03-16)
PROC: 3E0DXGC Introduction of Other Therapeutic Substance into Mouth and Pharynx, External Approach (ICD-10-PCS; 2018-03-16)
DX: O48.0 Post-term pregnancy (principal); O70.1 Second degree perineal laceration during delivery; O99.02 Anemia complicating childbirth; D64.9 Anemia, unspecified; O26.893 Other specified pregnancy related conditions, third trimester; Z67.41 Type O blood, Rh negative; Z3A.40 40 weeks gestation of pregnancy; Z37.0 Single live birth
CPT/HCPCS: 36415; 83033; 85025; 86850; 86900; 86901; 88307

== ENCOUNTER 2020-01-22 11:31 | Emergency (ER) | payer BC, MEDICAID ==
[~2020-01-22] VITALS: Ht 172 cm; Wt 73.0 kg
[~2020-01-22 11:31] MED LIST changes: +FERR325T18 PO; +PREN-142 PO
[2020-01-22] MEDS ORDERED: BIRTH CONTROL (12:02)
[2020-01-22] MEDS ORDERED: LACTATED RINGERS 1,000 ML IV ONE ×2 (12:02→12:03)
[2020-01-22] MEDS ORDERED: KETOROLAC 30 MG/ML VIAL IVP STA (12:03)
[2020-01-22 12:13] LABS: BASOPHILS % (AUTO) 0 % (0-10); EOSINOPHILS % (AUTO) 0 % (0-10); HEMATOCRIT 37 % (35-52); HEMOGLOBIN 12.2 G/DL (11.5-16.0); LYMPHOCYTES # (AUTO) 1.1 X 10^3 (1.0-4.0); LYMPHOCYTES % (AUTO) 30 % (12-44); MEAN CORPUSCULAR HEMOGLOBIN 28 PG (25-34); MEAN CORPUSCULAR HGB CONC 33 G/DL (32-36); MEAN CORPUSCULAR VOLUME 85 FL (80-99); MEAN PLATELET VOLUME 10.8 FL (7.4-10.4); MONOCYTES # (AUTO) 0.3 X 10^3 (0.0-1.0); MONOCYTES % (AUTO) 9 % (0-12); NEUTROPHILS # (AUTO) 2.1 X 10^3 (1.8-7.8); NEUTROPHILS % (AUTO) 61 % (42-75); PLATELET COUNT 157 10^3/uL (130-400); RED CELL DISTRIBUTION WIDTH 13.5 % (10.0-14.5); WHITE BLOOD COUNT 3.5 10^3/uL (4.3-11.0)
[2020-01-22 12:25] LABS: ALBUMIN 3.8 GM/DL (3.2-4.5)
[2020-01-22 12:26] LABS: CHLORIDE 107 MMOL/L (98-107); POTASSIUM 4.1 MMOL/L (3.6-5.0); SODIUM 138 MMOL/L (135-145)
[2020-01-22 12:27] LABS: CALCIUM 8.5 MG/DL (8.5-10.1)
[2020-01-22 12:28] LABS: GLUCOSE 102 MG/DL (70-105)
[2020-01-22 12:29] LABS: CARBON DIOXIDE 21 MMOL/L (21-32)
[2020-01-22 12:30] LABS: BILIRUBIN,TOTAL 0.3 MG/DL (0.1-1.0)
[2020-01-22 12:31] LABS: ALKALINE PHOSPHATASE 50 U/L (40-136)
--- NOTE | 2020-01-22 12:31 | Diagnostic Imaging Report ---
INDICATION: Chest tightness. Short of air. COVID positive. A single view of the chest shows normal heart size and vascularity. The lungs are clear. There is no effusion or pneumothorax. IMPRESSION: Normal chest. Dictated by: Dictated on workstation # [id number]
[2020-01-22 12:32] LABS: CREATININE SERUM 0.79 MG/DL (0.60-1.30); GFR ESTIMATED > 60
[2020-01-22 12:33] LABS: BUN/CREATININE RATIO 16
[2020-01-22 12:35] LABS: ALANINE AMINOTRANSFERASE 10 U/L (0-55)
[2020-01-22] MEDS ORDERED: RT-ALBUTEROL INHALER HFA (VENTOLIN HFA) 18 GM IH ONE (12:56)
--- NOTE | 2020-01-22 12:56 | ED Respiratory ---
General Chief Complaint: Cough/Cold/Flu Symptoms Stated Complaint: TROUBLE BREATHING Nursing Triage Note: PT AMUBLATES TO ROOM 10 PT IS COVID + SINCE FRIDAY. PT HAS CHEST PRESSURE /10. PT STATES HAS NO TASTE OR SMELL, PT STATES VOMITED TODAY. Source: patient Exam Limitations: no limitations History of Present Illness Date Seen by Provider: Jan 22, 2020 Time Seen by Provider: 11:55 Initial Comments Here with report of being COVID-19 positive for the last few days and now with chest tightness/pressure and shortness of air. Reports that she has had an episode of vomiting today. COVID symptoms include fevers, chills, body aches and loss of taste and smell. Mostly concerned today due to increasing shortness of air. She has been unable to take in food and water but did vomit earlier today once. Feels better now. Timing/Duration: getting worse, other (3-4 days) Severity: moderate Modifying Factors: Worse With Activity; Improves With Rest Associated Symptoms: cough, fever/chills, muscle aches, nasal congestion, shortness of breath Allergies and Home Medications Allergies Coded Allergies: Sulfa (Sulfonamide Antibiotics) (Verified Allergy, Unknown, 08/29/17) Patient Home Medication List Home Medication List Reviewed: Yes Review of Systems Review of Systems Constitutional: see HPI EENTM: see HPI Respiratory: see HPI, cough, dyspnea on exertion Gastrointestinal: No diarrhea; vomiting Genitourinary: no symptoms reported Musculoskeletal: see HPI All Other Systems Reviewed Negative Unless Noted: Yes Past Lveyaec-Ejaabz-Dfvevx Hx Past Med/Social Hx: Reviewed Nursing Past Med/Soc Hx Patient Social History Alcohol Use: Denies Use Recreational Drug Use: No Smoking Status: Never a Smoker 2nd Hand Smoke Exposure: No Recent Foreign Travel: No Contact w/Someone Who Travel: No Recent Infectious Disease Expo: No Recent Hopitalizations: No Physical Abuse: No Sexual Abuse: No Immunizations Up To Date Tetanus Booster (TDap): Less than 5yrs PED Vaccines UTD: Yes Date of Influenza Vaccine: Mar 11, 2018 Seasonal Allergies Seasonal Allergies: Yes Past Medical History Surgeries: No Respiratory: No Cardiac: No Neurological: No Last Menstrual Period: Jan 08, 2020 Female Reproductive Disorders: Denies Sexually Transmitted Disease: No HIV/AIDS: No Genitourinary: No Gastrointestinal: No Musculoskeletal: No Endocrine: No HEENT: No Cancer: No Psychosocial: No Integumentary: No Blood Disorders: No Adverse Reaction/Blood Tranf: No Family Medical History Reviewed Nursing Family Hx Parkinson's disease 19 FATHER Physical Exam Vital Signs - First Documented 01/22/20 11:48 Temp 36.4 Pulse 85 Resp 28 B/P (MAP) 118/78 (91) Pulse Ox 100 Capillary Refill : Less Than 3 Seconds Height: 5'9.00" Weight: 184lbs. 9.0oz. 83.748730pw; 24.00 BMI Method:Stated General Appearance: WD/WN, no apparent distress HEENT: PERRL/EOMI, pharynx normal Neck: full range of motion, supple Respiratory: lungs clear, normal breath sounds Cardiovascular: regular rate, rhythm, no murmur Gastrointestinal: non tender, soft Extremities: non-tender, normal inspection Neurologic/Psychiatric: alert, oriented x 3 Skin: normal color, warm/dry Progress/Results/Core Measures Suspected Sepsis Recent Fever Within 48 Hours: Yes Infection Criteria Present: Documented Infection New/Unexplained Altered Menta: No Sepsis Screen: Possible Sepsis Risk SIRS Temperature: Pulse: 85 Respiratory Rate: 28 Laboratory Tests 01/22/20 12:05: White Blood Count 3.5L Blood Pressure 118 /78 Mean: 91 Laboratory Tests 01/22/20 12:05: Creatinine 0.79, Platelet Count 157, Total Bilirubin 0.3 Results/Orders Lab Results Laboratory Tests Test 01/22/20 12:05 Range/Units White Blood Count 3.5 L 4.3-11.0 10^3/uL Red Blood Count 4.34 L 4.35-5.85 10^6/uL Hemoglobin 12.2 11.5-16.0 G/DL Hematocrit 37 35-52 % Mean Corpuscular Volume 85 80-99 FL Mean Corpuscular Hemoglobin 28 25-34 PG Mean Corpuscular Hemoglobin Concent 33 32-36 G/DL Red Cell Distribution Width 13.5 10.0-14.5 % Platelet Count 157 130-400 10^3/uL Mean Platelet Volume 10.8 H 7.4-10.4 FL Neutrophils (%) (Auto) 61 42-75 % Lymphocytes (%) (Auto) 30 12-44 % Monocytes (%) (Auto) 9 0-12 % Eosinophils (%) (Auto) 0 0-10 % Basophils (%) (Auto) 0 0-10 % Neutrophils # (Auto) 2.1 1.8-7.8 X 10^3 Lymphocytes # (Auto) 1.1 1.0-4.0 X 10^3 Monocytes # (Auto) 0.3 0.0-1.0 X 10^3 Eosinophils # (Auto) 0.0 0.0-0.3 10^3/uL Basophils # (Auto) 0.0 0.0-0.1 10^3/uL D-Dimer <= 0.27 0.00-0.49 UG/ML Sodium Level 138 135-145 MMOL/L Potassium Level 4.1 3.6-5.0 MMOL/L Chloride Level 107 98-107 MMOL/L Carbon Dioxide Level 21 21-32 MMOL/L Anion Gap 10 5-14 MMOL/L Blood Urea Nitrogen 13 7-18 MG/DL Creatinine 0.79 0.60-1.30 MG/DL Estimat Glomerular Filtration Rate > 60 BUN/Creatinine Ratio 16 Glucose Level 102 70-105 MG/DL Calcium Level 8.5 8.5-10.1 MG/DL Corrected Calcium 8.7 8.5-10.1 MG/DL Total Bilirubin 0.3 0.1-1.0 MG/DL Aspartate Amino Transf (AST/SGOT) 16 5-34 U/L Alanine Aminotransferase (ALT/SGPT) 10 0-55 U/L Alkaline Phosphatase 50 40-136 U/L C-Reactive Protein High Sensitivity 2.82 H 0.00-0.50 MG/DL Total Protein 7.0 6.4-8.2 GM/DL Albumin 3.8 3.2-4.5 GM/DL My Orders Orders - MARCO A STINSON MD Cbc With Automated Diff (01/22/20 12:03) Comprehensive Metabolic Panel (01/22/20 12:03) Hs C Reactive Protein (01/22/20 12:03) Fibrin Degradation Products (01/22/20 12:03) Ed Iv/Invasive Line Start (01/22/20 12:03) Lactated Ringers (Lr 1000 Ml Iv Solution (01/22/20 12:03) Chest 1 View, Ap/Pa Only (01/22/20 12:03) Ketorolac Injection (Toradol Injection) (01/22/20 12:03) Lactated Ringers (Lr 1000 Ml Iv Solution (01/22/20 12:02) Rx-Albuterol Inhaler (Rx-Ventolin Hfa) (01/22/20 12:58) Albuterol Inhaler (Ventolin Hfa) (01/22/20 12:56) Albuterol Inhaler (Ventolin Hfa) (01/22/20 14:00) Medications Given in ED Current Medications Medications Dose Ordered Sig/Steve Route Start Time Stop Time Status Last Admin Dose Admin Lactated Ringer's 1,000 ml @ 0 mls/hr Q0M ONCE IV 01/22/20 12:03 01/22/20 12:05 DC 01/22/20 12:09 1,000 MLS/HR Vital Signs/I&O 01/22/20 11:48 Temp 36.4 Pulse 85 Resp 28 B/P (MAP) 118/78 (91) Pulse Ox 100 Capillary Refill : Less Than 3 Seconds Blood Pressure Mean: 91 Progress Note : Progress Note Seen and evaluated. IV, labs, chest x-ray, LR 1 L bolus and Toradol 30 mg IV ordered. Monitor patient. 1300: Albuterol MDI 2 puffs given and this did improve her respiratory symptoms. Overall no significant acute findings. Discharged home with return precautions. Patient verbalize understanding instructions and agr eement with plan. Diagnostic Imaging Diagonstic Imaging: Xray Plain Films/CT/US/NM/MRI: chest Comments [facility], [place] NAME: JUANJOSE NEGRETE [facility] REC#: [id number] PT STATUS: REG ER : 2000 PHYSICIAN: MARCO A STINSON MD ADMIT DATE: 01/22/20/ER Signed Date of Exam:01/22/20 CHEST 1 VIEW, AP/PA ONLY INDICATION: Chest tightness. Short of air. COVID positive. A single view of the chest shows normal heart size and vascularity. The lungs are clear. There is no effusion or pneumothorax. IMPRESSION: Normal chest. Dictated by: Dictated on workstation # [id number] Dict: 01/22/20 1229 Trans: 01/22/20 1254 [facility] [id number] Interpreted by: CANDELARIA SANTIAGO MD Electronically signed by: CANDELARIA SANTIAGO MD 01/22/20 0565 Next week. Worried well Reviewed: Reviewed by Me Departure Impression Primary Impression: 2019 novel coronavirus disease (COVID-19) Additional Impression: Shortness of breath Disposition: 01 HOME, SELF-CARE Condition: Improved Departure-Patient Inst. Decision time for Depature: 13:11 Referrals: CHRIS WHEELER MD (PCP/Family) Primary Care Physician Patient Instructions: Coronavirus Disease 2019 (COVID-19) (DC), Shortness of Breath (Dyspnea) (DC) Add. Discharge Instructions: All discharge instructions reviewed with patient and/or family. Voiced understanding. Drink plenty of fluids and get plenty of rest. You may do the inhaler 2 puffs every 4 hours as needed for shortness of air. You may take ibuprofen 600 mg every 8 hours as needed for fever or pain. You may take Tylenol/acetaminophen 1000 mg every 8 hours as needed for fever.. Return for worse pain, fever, vom iting, weakness, breathing problems or other concerns as needed. MARCO A STINSON MD Jan 22, 2020 12:56
[2020-01-22] MEDS ORDERED: RX-ALBUTEROL INHALER (VENTOLIN HFA) 18 GM IH STA (12:58)
[2020-01-22 13:30] VITALS: BP 118/78
[2020-01-22] MEDS ORDERED: RT-ALBUTEROL INHALER HFA (VENTOLIN HFA) 18 GM IH SCH (14:00)
== END 2020-01-22 13:20 | disposition home or self-care (01) ==
LOC: EDUNIT# 11:31 → ER 11:33
DX: U07.1 COVID-19 (principal); Z88.2 Allergy status to sulfonamides
CPT/HCPCS: 36415; 71045; 80053; 85025; 85379; 86141

== ENCOUNTER 2020-11-20 08:30 | Outpatient (RCR) | payer BC, MEDICAID ==
[~2020-11-20 08:30] MED LIST changes: +BIRTH CONTROL
== END 2021-02-18 | disposition home or self-care (01) ==
LOC: CARD 08:30
PROVIDERS: ATTEND Nurse Practitioner Family
DX: R00.0 Tachycardia, unspecified (principal)
CPT/HCPCS: 93225; 93226

== ENCOUNTER → 2021-12-17 | Outpatient (CLI) | payer MEDICAID ==
--- NOTE | 2021-12-17 15:32 | Diagnostic Imaging Report ---
PROCEDURE: US OB SINGLE FETUS <14 WKS, 12/17/2021. TECHNIQUE: Multiple real-time grayscale images were obtained over the gravid uterus in various projections. INDICATION: Check dates. FINDINGS: There is a single live intrauterine gestation currently measuring 7 weeks 0 days with an estimated date of delivery of 08/05/2022. Yolk sac is noted. Heart rate 140 bpm. No gross abnormality is appreciated. The maternal left ovary is unremarkable in appearance. Within the right ovary there is a large cystic lesion approximately 2.8 cm in length, likely a corpus luteal cyst. No free fluid is seen. IMPRESSION: 1. Single live intrauterine gestation measuring 7 weeks 0 days. 2. Cystic lesion right ovary, likely a corpus luteal cyst. Dictated by: Dictated on workstation # [id number]
== END ==
LOC: RAD 10:00
PROVIDERS: ATTEND Family Medicine
DX: O34.81 Maternal care for other abnormalities of pelvic organs, first trimester (principal); Z3A.01 Less than 8 weeks gestation of pregnancy
CPT/HCPCS: 76801

== ENCOUNTER → 2022-03-21 | Outpatient (CLI) | payer MEDICAID ==
--- NOTE | 2022-03-21 17:53 | Diagnostic Imaging Report ---
INDICATION: Supervision of normal . Anatomy scan. TECHNIQUE: Multiple real-time grayscale images were obtained over the gravid uterus. COMPARISON: 12/17/2021. FINDINGS: A single live intrauterine gestation is visualized in transverse position. heart tones measure 143 bpm. The placenta is anterior and low-lying. The placental tip measures 2.1 cm from the internal cervical os. The cervix is closed and measures 6.3 cm in length. The TRUDI is normal measuring 13.8 cm. The kidneys, bladder, stomach, brain, four-chamber heart, three-vessel cord, and cord insertion are visualized and have a normal appearance. The spine is not well seen due to position. Views of the adnexa are unremarkable without evidence of mass or free fluid. Biometrical measurements are as follows: Biparietal 4.47 cm, age 19 weeks 4 days. Head circumference 17.93 cm, age 20 weeks 3 days. Abdominal circumference 14.71 cm, age 20 weeks 0 days. Femur length 3.16 cm, age 19 weeks 6 days. Sonographic estimate age: 20 weeks 0 days. Sonographic estimated date of delivery: 08/08/2022. Estimated Weight: 323 gm (+/- 48 gm). LMP percentile: 21%. heart rate: 143 beats per minute. number: 1 of 1. IMPRESSION: 1. Single live intrauterine gestation measuring 20 weeks 0 days with an estimated due date of 08/08/2022. These are within range of the clinical dates. 2. Suboptimal visualization of the spine due to position. The remaining anatomy is seen and has a normal appearance. Recommend continued follow-up, as indicated. 3. Somewhat low lying placenta. No evidence of previa. Recommend attention on follow-up. Dictated by: Dictated on workstation # [id number]
== END ==
LOC: RAD 14:37
PROVIDERS: ATTEND Family Medicine
DX: Z34.92 Encounter for supervision of normal pregnancy, unspecified, second trimester (principal); Z3A.20 20 weeks gestation of pregnancy
CPT/HCPCS: 76805

== ENCOUNTER 2022-05-12 01:30 | Outpatient (CLI) | payer MEDICAID ==
[~2022-05-12] VITALS: Ht 175.3 cm; Wt 91.1 kg
[2022-05-12 02:00] VITALS: BP 112/60
[2022-05-12 02:03] LABS: BILIRUBIN,URINE NEGATIVE (NEGATIVE); CLARITY,URINE CLEAR; COLOR,URINE YELLOW; GLUCOSE, URINE (UA) NEGATIVE (NEGATIVE); KETONES,URINE 2+ (NEGATIVE); LEUKOCYTE ESTERASE ,URINE NEGATIVE (NEGATIVE); NITRITE,URINE NEGATIVE (NEGATIVE); PH,URINE 6.5 (5-9); PROTEIN,URINE NEGATIVE (NEGATIVE)
[2022-05-12 02:10] VITALS: BP 103/54
[2022-05-12] MEDS ORDERED: PREN1TAB79 PO (02:11)
[2022-05-12 02:30] LABS: BACTERIA,URINE FEW /HPF; WBC,URINE 0-2 /HPF
[2022-05-12] MEDS ORDERED: LACTATED RINGERS 1,000 ML IV ONE (02:42)
[2022-05-12] MEDS ORDERED: ACETAMINOPHEN 500 MG TAB (TYLENOL) ONE (02:43)
[2022-05-12] MEDS ORDERED: ACETAMINOPHEN 500 MG TAB (TYLENOL) PO PRN (02:45)
[2022-05-12] MEDS ORDERED: LACTATED RINGERS 1,000 ML IV SCH (02:45)
--- NOTE | 2022-05-13 08:17 | Physician Query-Final Dx ---
Clinic Account Progress/Dx Physician Query: Please give diagnosis Please include # weeks gestation Date of Service May 12, 2022 at 01:30 KIAH,MayMay 13, 2022 08:17
== END 2022-05-12 04:15 | disposition home or self-care (01) ==
LOC: WSo 01:30 → LDRP 01:35 → WSo 04:15
PROVIDERS: ATTEND Family Medicine
DX: O99.891 Other specified diseases and conditions complicating pregnancy (principal); Z3A.28 28 weeks gestation of pregnancy
CPT/HCPCS: 81000; 87088; 96360; 99213

== ENCOUNTER → 2022-05-15 | Outpatient (CLI) | payer MEDICAID ==
[~2022-05-15] MED LIST changes: +PREN1TAB79 PO
== END ==
LOC: LAB 10:07
PROVIDERS: ATTEND Family Medicine
DX: Z01.89 Encounter for other specified special examinations (principal)

== ENCOUNTER → 2022-06-03 | Outpatient (CLI) | payer MEDICAID ==
--- NOTE | 2022-06-03 15:34 | Diagnostic Imaging Report ---
INDICATION: Low lying placenta and followup spine. TECHNIQUE: Multiple real-time grayscale images were obtained over the gravid uterus. COMPARISON: 03/21/2022. FINDINGS: There is a single live fetus in a cephalic presentation. heart rate was recorded at 140 bpm. Placenta is anterior. No previa is detected. Amniotic fluid index is 12.7 cm. Cervical length is 5.1 cm. spine appears unremarkable on today's study. IMPRESSION: Unremarkable followup obstetrical ultrasound. No complicating features are detected. Dictated by: Dictated on workstation # [id number]
== END ==
LOC: RAD 12:00
PROVIDERS: ATTEND Family Medicine
DX: O44.40 Low lying placenta NOS or without hemorrhage, unspecified trimester (principal); Z3A.00 Weeks of gestation of pregnancy not specified
CPT/HCPCS: 76816

== ENCOUNTER 2022-07-29 03:12 | Inpatient (IN) | payer MEDICAID ==
[2022-07-29] VITALS (47 sets, daily range): BP systolic 108–142; BP diastolic 55–79
[~2022-07-29] VITALS: Ht 175.3 cm; Wt 94.3 kg
[2022-07-29] MEDS ORDERED: D5 LR IV SOLUTION 1,000 ML IV ONE (06:31)
--- NOTE | 2022-07-29 06:37 | History & Physical-OB ---
OB - Chief Complaint & HPI Date/Time Date of Admission: Date of Admission: Jul 29, 2022 at 05:57 Date seen by a Provider: Jul 29, 2022 Time Seen by a Provider: 06:25 Chief Complaint/History OB-Reason for Admission/Chief: Induction of Labor Hx : 2 Hx Para: 1 Expected Date of Delivery: Aug 05, 2022 Gestational Age in Weeks: 39 Gestational Age in Days: 0 Admission Nurse Assessment Rev: Yes History of Labs GBS negative Allergies and Home Medications Allergies Coded Allergies: Sulfa (Sulfonamide Antibiotics) (Verified Allergy, Unknown, 08/29/17) Patient Home Medication List Home Medication List Reviewed: Yes Vit W-Ca,Fe,FA(<1 mg) ( Vitamins) 27 Mg Iron-800 Mcg Tablet, 1 EACH PO DAILY, (Reported) Entered as Reported by: JACKIE VICENTE on 05/12/22210 OB - History Hx of Present Care: Yes Ultrasounds: Normal mid trimester US Obstetrical Complications: None Medical Complications: None Delivery History Adverse Rxn to Tranfusion: No Patient Past Medical History PMHx: Denies PSurgHx: Denies Social History/Family History 2nd Hand Smoke Exposure: No Immunizations Hepatitis A: Yes Hepatitis B: Yes Tetanus Booster (TDap): Less than 5yrs OB - Admission Exam Physical Exam HEENT: Moist Membranes Heart: Rhythm Normal Lungs: Clear Abdomen: Gravid Cervical Dilatation: 2cm Effacement: 75% Station: -3 Membranes: Intact Heart Rate: 150's Accelerations: Accelerations Present Decelerations: No Decelerations Short Term Variability: Present Mcc Variability: Average (6-25) Intensity: Mild Brown Scoring Tool (Modified) Dilation (cm): 1-2cm (1) Effacement (%): 51-79% (2) Descent/Station: -3 (0) Cervix Consistency: Medium(1) Cervix Position: Middle/Mid-Position (1) Add 1 point for: Each previous vaginal delivery (1) Brown Score: 6 OB - Assessment/Plan/Diagnosis Assessment Assessment: induction of labor Admission Dx 1. IUP at term 39 weeks Admission Status: Inpatient Order (span 2 midnights) Reason for Inpatient Admission: L&D Plan Plan: Induction Induction Method: AROM Other Plan -epidural planned -pitocin if necessary IGNACIO BEAULIEU MD Jul 29, 2022 06:37
[2022-07-29] MEDS ORDERED: OXYTOCIN PRE-MIX DRIP 500 ML IV SCH ×2 (06:45→18:45)
[2022-07-29] MEDS ORDERED: MINERAL OIL 30 ML UDC TOP PRN (06:45)
[2022-07-29 06:46] LABS: BASOPHILS % (AUTO) 1 % (0-10); EOSINOPHILS # (AUTO) 0.1 10^3/uL (0.0-0.3); EOSINOPHILS % (AUTO) 1 % (0-10); HEMATOCRIT 30 % (35-52); HEMOGLOBIN 9.3 g/dL (11.5-16.0); LYMPHOCYTES # (AUTO) 1.5 10^3/uL (1.0-4.0); LYMPHOCYTES % (AUTO) 22 % (12-44); MEAN CORPUSCULAR HEMOGLOBIN 23 pg (25-34); MEAN CORPUSCULAR HGB CONC 32 g/dL (32-36); MEAN CORPUSCULAR VOLUME 73 fL (80-99); MEAN PLATELET VOLUME 11.1 fL (9.0-12.2); MONOCYTES # (AUTO) 0.7 10^3/uL (0.0-1.0); MONOCYTES % (AUTO) 10 % (0-12); NEUTROPHILS # (AUTO) 4.8 10^3/uL (1.8-7.8); NEUTROPHILS % (AUTO) 67 % (42-75); PLATELET COUNT 272 10^3/uL (130-400); WHITE BLOOD COUNT 7.1 10^3/uL (4.3-11.0)
[2022-07-29 06:49] LABS: BILIRUBIN,URINE 1+ (NEGATIVE); CLARITY,URINE CLOUDY; COLOR,URINE ORANGE; GLUCOSE, URINE (UA) NEGATIVE (NEGATIVE); KETONES,URINE TRACE (NEGATIVE); LEUKOCYTE ESTERASE ,URINE NEGATIVE (NEGATIVE); NITRITE,URINE NEGATIVE (NEGATIVE); PROTEIN,URINE 1+ (NEGATIVE)
[2022-07-29 07:03] LABS: BACTERIA,URINE MODERATE /HPF
[2022-07-29 07:04] LABS: CALCIUM OXALATE CRYSTALS,UR LARGE /LPF
[2022-07-29] MEDS: D5 LR IV SOLUTION 1,000 ML IV SCH ×2 (09:13→13:46)
[2022-07-29] MEDS ORDERED: LACTATED RINGERS 1,000 ML IV ONE (10:45)
[2022-07-29] MEDS ORDERED: fentaNYL 2 mcg/ml BUPIVA 0.125 100 ML ONE (11:09)
[2022-07-29] MEDS ORDERED: fentaNYL INJ 100 MCG/2 ML AMP ONE (12:09)
[2022-07-29] MEDS ORDERED: CATHETER FLUSH 10 ML SYR IV SCH ×2 (14:00→22:00)
[2022-07-29] MEDS ORDERED: METOCLOPRAMIDE INJ 10 MG/2 ML (REGLAN) IV PRN (14:30)
[2022-07-29] MEDS ORDERED: NALOXONE 0.4 MG/ML 1 ML (NARCAN) VIAL IV PRN ×2 (14:30→18:45)
[2022-07-29] MEDS ORDERED: CATHETER FLUSH 10 ML SYR IV PRN (14:30)
[2022-07-29] MEDS ORDERED: fentaNYL 2 mcg/ml BUPIVA 0.125 100 ML IV SCH (14:30)
[2022-07-29] MEDS ORDERED: ONDANSETRON 4 MG/2 ML (SDV) Z0FRAN IV PRN (14:30)
--- NOTE | 2022-07-29 16:46 | Labor Progress Note ---
Labor Progress Note Labor Progress Note Date Seen by Provider: Jul 29, 2022 Time Seen by Provider: 16:35 Subjective: Pt denies complaints. Feeling contractions. Objective: Cervical exam: 6 Consistency: soft Position: -1 heart tones: 140 beats per minute, normal variability, reactive Tocometer: 3 ctx/10 minutes Assessment/Plan: Greta Bearden is a (21 /Para 2 / 1,Gestational Age (wks)39 here for in labor CEFM/TOCO Continue pitocin/currently at 20 Anesthesia: is going to recheck epidural Anticipate vaginal delivery. Vitals - Labs Vital Signs - I&O Vital Signs Date Time Temp Pulse Resp B/P (MAP) Pulse Ox O2 Delivery O2 Flow Rate FiO2 07/29/22 15:42 98 119/58 (78) Room Air 07/29/22 15:29 94 115/57 (76) Room Air 07/29/22 15:13 92 119/59 (79) Room Air 07/29/22 14:58 82 124/57 (79) Room Air 07/29/22 14:44 92 126/65 (85) Room Air 07/29/22 14:29 93 115/65 (82) Room Air 07/29/22 14:15 88 129/60 (83) Room Air 07/29/22 13:58 91 118/58 (78) Room Air 07/29/22 13:43 36.6 86 18 124/58 (80) Room Air 07/29/22 13:28 85 108/55 (72) Room Air 07/29/22 13:13 89 119/55 (76) Room Air 07/29/22 12:56 81 124/59 (80) Room Air 07/29/22 12:53 82 122/57 (78) 99 Room Air 07/29/22 12:50 82 125/62 (83) 98 Room Air 07/29/22 12:47 78 127/64 (85) 07/29/22 12:44 78 18 137/70 (92) 98 Room Air 07/29/22 12:37 81 129/58 (81) 07/29/22 12:34 85 126/60 (82) 98 Room Air 07/29/22 12:32 82 126/60 (82) Room Air 07/29/22 12:29 91 133/61 (85) 98 Room Air 07/29/22 12:26 89 131/60 (83) Room Air 07/29/22 12:23 82 133/61 (85) 98 Room Air 07/29/22 12:20 88 124/63 (83) 99 Room Air 07/29/22 12:16 82 127/62 (83) Room Air 07/29/22 12:13 88 124/59 (80) 98 Room Air 07/29/22 12:10 84 120/64 (82) Room Air 07/29/22 12:08 86 123/60 (81) 99 Room Air 07/29/22 12:04 90 136/72 (93) 99 Room Air 07/29/22 11:58 101 130/62 (84) 99 Room Air 07/29/22 11:55 95 142/62 (88) 98 Room Air 07/29/22 11:52 98 131/61 (84) 98 Room Air 07/29/22 11:49 102 130/69 (89) 99 Room Air 07/29/22 11:46 98 136/77 (96) 99 Room Air 07/29/22 11:43 90 16 128/79 (95) 96 Room Air 07/29/22 11:38 36.4 106 16 120/64 (82) 100 Room Air 07/29/22 07:30 36.4 92 18 134/76 (95) 98 Room Air 07/29/22 06:02 37.0 116 18 97 Room Air 07/29/22 06:02 37.0 111 18 132/77 (95) 97 Room Air Labs Laboratory Tests 07/29/22 06:00: Urine Color ORANGE, Urine Clarity CLOUDY, Urine pH 6.0, Urine Specific [place] >=1.030, Urine Protein 1+H, Urine Glucose (UA) NEGATIVE, Urine Ketones TRACEH, Urine Nitrite NEGATIVE, Urine Bilirubin 1+H, Urine Urobilinogen 1.0, Urine Leukocyte Esterase NEGATIVE, Urine RBC (Auto) NEGATIVE, Urine RBC NONE, Urine WBC 2-5, Urine Squamous Epithelial Cells 10-25H, Urine Crystals PRESENTH, Urine Calcium Oxalate Crystals LARGEH, Urine Bacteria MODERATEH, Urine Casts NONE, U rine Mucus LARGEH, Urine Culture Indicated YES 07/29/22 06:10: White Blood Count 7.1, Red Blood Count 4.05, Hemoglobin 9.3L, Hematocrit 30L, Mean Corpuscular Volume 73L, Mean Corpuscular Hemoglobin 23L, Mean Corpuscular Hemoglobin Concent 32, Red Cell Distribution Width 14.9H, Platelet Count 272, Mean Platelet Volume 11.1, Immature Granulocyte % (Auto) 0, Neutrophils (%) (Au to) 67, Lymphocytes (%) (Auto) 22, Monocytes (%) (Auto) 10, Eosinophils (%) (Auto) 1, Basophils (%) (Auto) 1, Neutrophils # (Auto) 4.8, Lymphocytes # (Auto) 1.5, Monocytes # (Auto) 0.7, Eosinophils # (Auto) 0.1, Basophils # (Auto) 0.0, Immature Granulocyte # (Auto) 0.0 IGNACIO BEAULIEU MD Jul 29, 2022 16:46
[2022-07-29] MEDS ORDERED: LIDOCAINE 1% INJ 10 ML VIAL INJ ONE (18:05)
[2022-07-29] MEDS ORDERED: LIDOCAINE 1% INJ 10 ML VIAL ONE (18:08)
--- NOTE | 2022-07-29 18:35 | OB Labor & Delivery Record ---
L&D History Date of Service Date of Service: Jul 29, 2022 History Expected Date of Delivery: Aug 05, 2022 Gestational Age in Weeks: 39 Hx : 2 Hx Para: 2 Complications Events: Routine care Operative Indications (Cesarea: N/A-Vaginal Delivery Intrapartal Events: None L&D Stage1 Stage One Onset of Labor - Date: Jul 29, 2022 Onset of Labor - Time: 06:26 Monitors and Tracing Monitor Mode: Internal Heart Rate: 145 Monitor Accelerations: Uniform Station: -1 Chcf Variability: Average (6-10) Short Term Variability: Present Presentation: Vertex Vital Signs VS - Last 72 Hours, by Label 07/29/22 07/29/22 07/29/22 07/29/22 06:02 06:02 07:30 11:38 Temp 37.0 37.0 36.4 36.4 Pulse 111 116 92 106 Resp 18 18 18 16 B/P (MAP) 132/77 (95) 134/76 (95) 120/64 (82) Pulse Ox 97 97 98 100 O2 Delivery Room Air Room Air Room Air Room Air 07/29/22 07/29/22 07/29/22 07/29/22 11:43 11:46 11:49 11:52 Pulse 90 98 102 98 Resp 16 B/P (MAP) 128/79 (95) 136/77 (96) 130/69 (89) 131/61 (84) Pulse Ox 96 99 99 98 O2 Delivery Room Air Room Air Room Air Room Air 07/29/22 07/29/22 07/29/22 07/29/22 11:55 11:58 12:04 12:08 Pulse 95 101 90 86 B/P (MAP) 142/62 (88) 130/62 (84) 136/72 (93) 123/60 (81) Pulse Ox 98 99 99 99 O2 Delivery Room Air Room Air Room Air Room Air 07/29/22 07/29/22 07/29/22 07/29/22 12:10 12:13 12:16 12:20 Pulse 84 88 82 88 B/P (MAP) 120/64 (82) 124/59 (80) 127/62 (83) 124/63 (83) Pulse Ox 98 99 O2 Delivery Room Air Room Air Room Air Room Air 07/29/22 07/29/22 07/29/22/6/23 12:23 12:26 12:29 12:32 Pulse 82 89 91 82 B/P (MAP) 133/61 (85) 131/60 (83) 133/61 (85) 126/60 (82) Pulse Ox 98 98 O2 Delivery Room Air Room Air Room Air Room Air 07/29/22 07/29/22 07/29/22 07/29/22 12:34 12:37 12:44 12:47 Pulse 85 81 78 78 Resp 18 B/P (MAP) 126/60 (82) 129/58 (81) 137/70 (92) 127/64 (85) Pulse Ox 98 98 O2 Delivery Room Air Room Air 07/29/22 07/29/22 07/29/22 07/29/22 12:50 12:53 12:56 13:13 Pulse 82 82 81 89 B/P (MAP) 125/62 (83) 122/57 (78) 124/59 (80) 119/55 (76) Pulse Ox 98 99 O2 Delivery Room Air Room Air Room Air Room Air 07/29/22 07/29/22 07/29/22 07/29/22 13:28 13:43 13:58 14:15 Temp 36.6 Pulse 85 86 91 88 Resp 18 B/P (MAP) 108/55 (72) 124/58 (80) 118/58 (78) 129/60 (83) O2 Delivery Room Air Room Air Room Air Room Air 07/29/22 07/29/22 07/29/22 07/29/22 14:29 14:44 14:58 15:13 Pulse 93 92 82 92 B/P (MAP) 115/65 (82) 126/65 (85) 124/57 (79) 119/59 (79) O2 Delivery Room Air Room Air Room Air Room Air 07/29/22 07/29/22 07/29/22 07/29/22 15:29 15:42 15:58 16:15 Pulse 94 98 100 96 B/P (MAP) 115/57 (76) 119/58 (78) 125/70 (88) 121/56 (77) O2 Delivery Room Air Room Air Room Air Room Air 07/29/22 16:28 Pulse 93 B/P (MAP) 130/66 (87) O2 Delivery Room Air Signs of Distress by FHT Signs of Distress no Rupture of Membranes Spontaneous Ruture of Membrane: No Amniotic Membrane Rupture Time: 0626 Amniotic Membrane Fluid Desc.: Clear Vaginal Bleeding Description: None Induction/Anesthesia Epidural Cath Placement - Time: 1150 L&D Stage2 Stage Two Stage II Date: Jul 29, 2022 Stage II Time: 18:05 Monitors and Tracing Monitor Mode: Internal Heart Rate: 145 Monitor Accelerations: Uniform Monitor Decelerations: None Powder Operator Variability: Average (6-10) Position: Left Occiput Anterior Presentation: Vertex Signs of Distress by FHT Signs of Distress no Cord Descript/Complications Cord Vessel Description: 3 Vessels Delivery Type Delivery Method: Spontaneous Vaginal Anterior Shoulder: Left Episiotomy/Perineal Laceration Laceraction(s)/Extensions: No Episiotomy Description: Perineal Extension/lac (minor) Sutures Used: Vicryl Condition of Delivery 1 minute Comment: 8 5 minute Comment: 9 Condition of Condition of : Living Exam: No Observed Abnormalities Resuscitation Resuscitation: N/A - Spontaneous Resp L&D Stage3 Stage Three Stage III Date: Jul 29, 2022 Stage III Time: 18:11 Pictocin Pitocin ml/hr: 22 Pitocin Administration Comment: 1637- PITOCIN INCREASED PER PROTOCOL Placenta Delivery Placenta Delivery: Spontaneous Delivery Summary Summary Estimated blood loss (mL): 350 Condition of Delivery Examined: Cervix Examined Post Hemorrhage: No Intervention Required uterine massage IGNACIO BEAULIEU MD Jul 29, 2022 18:35
[2022-07-29] MEDS ORDERED: TETANUS,DIPTH,PERTUSS P/F (BOOSTRIX) 0.5 ML VIAL IM ONE (18:45)
[2022-07-29] MEDS ORDERED: BENZOCAINE/MENTHOL (DERMOPLAST) 56 ML CAN TP PRN (18:45)
[2022-07-29] MEDS ORDERED: MEASLES,MUMPS,RUBELLA 1 EA INJ SQ ONE (18:45)
[2022-07-29] MEDS ORDERED: WITCH HAZEL(TUCKS) 40 EA JAR TOP PRN (18:45)
[2022-07-29] MEDS: DOCUSATE SODIUM 100 MG (COLACE) CAP PO SCH (19:56)
[2022-07-29] MEDS: IBUPROFEN 600 MG (MOTRIN) TAB PO SCH (19:56)
[2022-07-29] MEDS: ACETAMINOPHEN 500 MG TAB (TYLENOL) PO SCH (23:11)
[2022-07-30 01:57] VITALS: BP 89/48
[2022-07-30] MEDS: IBUPROFEN 600 MG (MOTRIN) TAB PO SCH ×4 (01:58→18:16)
[2022-07-30] MEDS: ACETAMINOPHEN 500 MG TAB (TYLENOL) PO SCH ×3 (05:17→18:15)
[2022-07-30 06:00] LABS: BASOPHILS % (AUTO) 0 % (0-10); EOSINOPHILS # (AUTO) 0.1 10^3/uL (0.0-0.3); EOSINOPHILS % (AUTO) 1 % (0-10); HEMATOCRIT 25 % (35-52); HEMOGLOBIN 7.7 g/dL (11.5-16.0); LYMPHOCYTES # (AUTO) 1.9 10^3/uL (1.0-4.0); LYMPHOCYTES % (AUTO) 20 % (12-44); MEAN CORPUSCULAR HEMOGLOBIN 23 pg (25-34); MEAN CORPUSCULAR HGB CONC 31 g/dL (32-36); MEAN CORPUSCULAR VOLUME 74 fL (80-99); MEAN PLATELET VOLUME 11.3 fL (9.0-12.2); MONOCYTES % (AUTO) 10 % (0-12); NEUTROPHILS # (AUTO) 6.8 10^3/uL (1.8-7.8); NEUTROPHILS % (AUTO) 69 % (42-75); PLATELET COUNT 235 10^3/uL (130-400); WHITE BLOOD COUNT 9.9 10^3/uL (4.3-11.0)
[2022-07-30 06:47] VITALS: BP 116/53
--- NOTE | 2022-07-30 07:11 | Discharge Summary ---
Diagnosis/Chief Complaint Date of Admission Jul 29, 2022 at 05:57 Date of Discharge Jul 30, 2022 Discharge Date: Jul 30, 2022 Admission Diagnosis Admission Diagnosis 1. IUP at 39 weeks 2. Anemia (iron def during ) Discharge Diagnosis 1. IUP at 39 weeks 2. Anemia (iron def during ) Reason Hospital Visit 21 yo G2 now T2 L2 who initially presented to women's services on the morning of 3-6 for induction of labor at 39 weeks gestation. Her care was uneventful. GBS status at 36 weeks was negative. Discharge Summary-OBS Procedures 1. Epidural per anesthesia 2. 3. Repair of minor perineal laceration. Discharge Physical Examination Allergies: Coded Allergies: Sulfa (Sulfonamide Antibiotics) (Verified Allergy, Unknown, 08/29/17) Vitals & I&Os Vital Signs Date Time Temp Pulse Resp B/P (MAP) Pulse Ox O2 Delivery O2 Flow Rate FiO2 07/30/22 06:47 36.8 82 18 116/53 (74) 99 Room Air General Appearance: No Acute Distress Respiratory: Clear to Auscultation Cardiovascular: Regular Rate Abdominal: Soft (with uterus firm) Hospital Course Was the Problem List Reviewed?: Yes Hg on admission was 9.3 compared to morning after delivery of 7.7. Pending Labs Laboratory Tests 07/30/22 05:10: White Blood Count 9.9, Red Blood Count 3.33, Hemoglobin 7.7, Hematocrit 25, Mean Corpuscular Volume 74, Mean Corpuscular Hemoglobin 23, Mean Corpuscular Hemoglobin Concent 31, Red Cell Distribution Width 15.1, Platelet Count 235, Mean Platelet Volume 11.3, Immature Granulocyte % (Auto) 1, Neutrophils (%) (Auto) 69, Lymphocytes (%) (Auto) 20, Monocytes (%) (Auto) 10, Eosinophils (%) (Auto) 1, Basophils (%) (Auto) 0, Neutrophils # (Auto) 6.8, Lymphocytes # (Auto) 1.9, Monocytes # (Auto) 1.0, Eosinophils # (Auto) 0.1, Basophils # (Auto) 0.0, Immature Granulocyte # (Auto) 0.1 Discharge Instructions to patient/family Please see electronic discharge instructions given to patient. Discharge Medications Reviewed and agree with Discharge Medication list on patient's Discharge Instruction sheet IGNACIO BEAULIEU MD Jul 30, 2022 07:11
[2022-07-30] MEDS ORDERED: FERR325T24 PO (07:13)
--- NOTE | 2022-07-30 07:14 | Discharge Inst-Women's Service ---
Discharge Inst-Women's Serv Depart Medication/Instructions New, Converted or Re-Newed RX: Transmitted to Pharmacy ([facility]) Problems Reviewed?: Yes Consults/Follow Up Additional Follow Up: Yes (Dr Beaulieu in 6 weeks.) Activity Activity: Activity as Tolerated Nothing Inside Vagina: No Gentry (for 6 weeks.) Diet Discharge Diet: Regular Diet Return to The Hospital For: as below Symptoms to Report to : Bleeding Excessive, Fever Over 101 Degrees F, Vaginal Discharge Foul For Any Problems or Questions: Contact Your Physician IGNACIO BEAULIEU MD Jul 30, 2022 07:14
--- NOTE | 2022-07-30 07:53 | Anesthesia-Regional Post-Op ---
Regional Patient Condition Mental Status: Alert, Oriented x3 Circulation: Same as Pre-Op Headache: Absent Sensation: Full Recovery Motor Block: Absent Post Op Complications Complications None Follow Up Care/Instructions Patient Instructions None needed. Anesthesia/Patient Condition Patient is doing well, no complaints, stable vital signs, no apparent adverse anesthesia problems. No complications reported per nursing. [place] [facility] [place] Yes MARCELA PARSON CRNA Jul 30, 2022 07:53
[2022-07-30 08:22] VITALS: BP 118/59
[2022-07-30] MEDS: DOCUSATE SODIUM 100 MG (COLACE) CAP PO SCH (08:22)
[2022-07-30] MEDS: FERROUS SULF 325 MG (IRON) TAB PO SCH ×2 (08:23→18:15)
[2022-07-30 12:00] VITALS: BP 117/65
[2022-07-30 16:10] VITALS: BP 91/45
== END 2022-07-30 20:12 | disposition home or self-care (01) | DRG 807 ==
LOC: LDRP 05:57
PROVIDERS: ADMIT Family Medicine; ATTEND Family Medicine
PROC: 10E0XZZ Delivery of Products of Conception, External Approach (ICD-10-PCS; principal; 2022-07-29)
PROC: 3E033VJ Introduction of Other Hormone into Peripheral Vein, Percutaneous Approach (ICD-10-PCS; 2022-07-29)
PROC: 0HQ9XZZ Repair Perineum Skin, External Approach (ICD-10-PCS; 2022-07-29)
DX: O99.02 Anemia complicating childbirth (principal); Z37.0 Single live birth; Z3A.39 39 weeks gestation of pregnancy; D50.9 Iron deficiency anemia, unspecified; O70.0 First degree perineal laceration during delivery
CPT/HCPCS: 36415; 81000; 85025; 86780; 86850; 86900; 86901; 87088

== ENCOUNTER 2022-10-27 10:08 | Emergency (ER) | payer MEDICAID ==
[~2022-10-27] VITALS: Ht 175.2 cm; Wt 90.7 kg
[~2022-10-27 10:08] MED LIST changes: +FERR325T24 PO
[2022-10-27] MEDS ORDERED: NS 100 ML (IVPB) BAG IV ONE (10:45)
[2022-10-27] MEDS ORDERED: IOHEXOL 350 MG/ML 100 ML (OMNIPAQUE 350) VIAL IV ONE (10:45)
[2022-10-27] MEDS ORDERED: HOLD METFORMIN - RECEIVED CONTRAST 20 ML VIAL IV SCH (10:45)
[2022-10-27 10:53] LABS: BASOPHILS % (AUTO) 1 % (0-10); EOSINOPHILS % (AUTO) 0 % (0-10); HEMATOCRIT 34 % (35-52); HEMOGLOBIN 10.2 g/dL (11.5-16.0); LYMPHOCYTES # (AUTO) 1.3 10^3/uL (1.0-4.0); LYMPHOCYTES % (AUTO) 28 % (12-44); MEAN CORPUSCULAR HEMOGLOBIN 22 pg (25-34); MEAN CORPUSCULAR HGB CONC 30 g/dL (32-36); MEAN CORPUSCULAR VOLUME 74 fL (80-99); MEAN PLATELET VOLUME 10.1 fL (9.0-12.2); MONOCYTES # (AUTO) 0.4 10^3/uL (0.0-1.0); MONOCYTES % (AUTO) 9 % (0-12); NEUTROPHILS % (AUTO) 63 % (42-75); PLATELET COUNT 243 10^3/uL (130-400); WHITE BLOOD COUNT 4.8 10^3/uL (4.3-11.0)
[2022-10-27 11:06] LABS: ALBUMIN 4.5 GM/DL (3.2-4.5); POTASSIUM 3.6 MMOL/L (3.6-5.0)
[2022-10-27 11:08] LABS: CALCIUM 9.6 MG/DL (8.5-10.1)
[2022-10-27 11:09] LABS: TOTAL PROTEIN 7.9 GM/DL (6.4-8.2)
[2022-10-27 11:10] LABS: BILIRUBIN,TOTAL 0.6 MG/DL (0.1-1.0)
[2022-10-27 11:12] LABS: CREATININE SERUM 0.97 MG/DL (0.60-1.30)
[2022-10-27 11:35] LABS: FREE T4 (FREE THYROXINE) 0.91 NG/DL (0.70-1.48)
--- NOTE | 2022-10-27 12:11 | Diagnostic Imaging Report ---
PROCEDURE: CT neck soft tissue with contrast. TECHNIQUE: Multiple contiguous axial images were obtained through the neck after the administration of contrast. Auto Exposure Controls were utilized during the CT exam to meet ALARA standards for radiation dose reduction. INDICATION: Dysphagia, palpable neck mass. COMPARISON: None. DISCUSSION: Prominent left thyroid nodule with additional smaller nodule along the isthmus, indeterminate. Recommend nonemergent thyroid ultrasound to further evaluate. Lung apices are well-aerated. No aerodigestive tract abnormality identified. Tonsillar tissue is unremarkable. The visualized intracranial contents appear within normal limits. The orbits appear symmetrical. The sinuses and mastoid air cells are well-aerated. The bilateral parotid and submandibular glands appear within normal limits. Shotty-appearing lymph nodes are present. Carotid arteries bifurcate midneck and are unremarkable. No prevertebral soft tissue abnormality. No osseous abnormality. IMPRESSION: No acute abnormality identified within the neck. Dictated by: Dictated on workstation # [id number]
--- NOTE | 2022-10-27 12:53 | ED General ---
General Chief Complaint: Oral/Throat Problems Stated Complaint: LUMP ON THROAT Nursing Triage Note: C/O A LUMP IN HER NECK THAT SHE FEELS IS GETTING BIGGER SINCE SHE WOKE UP AND THE SWELLING MAKES HER FEEL HER THROAT IS TIGHT WHEN SHE SWALLOWS. Source of Information: Patient Exam Limitations: No Limitations History of Present Illness Date Seen by Provider: Oct 27, 2022 Time Seen by Provider: 10:12 Initial Comments This 22 year old woman was sent to the ER by the [facility] walk-in clinic for reasons of a neck mass that was noted this morning protruding near the left thyroid and is causing discomfort with swallowing. Patient claims she was unaware of the mass before this morning. She has no difficulty breathing. She is about 9 weeks . She has no recent thyroid labs. She has history of PCOS and elevated testosterone levels but no other known endocrine problems. No neoplastic history. Allergies and Home Medications Allergies Coded Allergies: Sulfa (Sulfonamide Antibiotics) (Verified Allergy, Unknown, 08/29/17) Patient Home Medication List Home Medication List Reviewed: Yes Ferrous Sulfate (Ferosul) 325 Mg (65 Mg Iron) Tablet, 325 MG PO BID WITH MEALS Prescribed by: IGNACIO BEAULIEU on 07/30/22 0713 Vit W-Ca,Fe,FA(<1 mg) ( Vitamins) 27 Mg Iron-800 Mcg Tablet, 1 EACH PO DAILY, (Reported) Entered as Reported by: JACKIE VICENTE on 05/12/22 0211 Review of Systems Review of Systems Constitutional: no symptoms reported EENTM: see HPI Respiratory: no symptoms reported Cardiovascular: no symptoms reported Gastrointestinal: see HPI Genitourinary: no symptoms reported : No Musculoskeletal: no symptoms reported Skin: no symptoms reported Psychiatric/Neurological: No Symptoms Reported Hematologic/Lymphatic: No Symptoms Reported Past Oazotrn-Gcjzzq-Wvrkne Hx Patient Social History Tobacco Use?: No Use of E-Cig and/or Vaping dev: No Substance use?: No Alcohol Use?: Yes Alcohol type: Wine Alcohol Frequency: Once in a while Immunizations Up To Date Tetanus Booster (TDap): Less than 5yrs PED Vaccines UTD: Yes Influenza Vaccine Up-to-Date: Yes; Up-to-Date First/Initial COVID19 Vaccinat: "2 SHOTS" Seasonal Allergies Seasonal Allergies: Yes Past Medical History Surgery/Hospitalization HX: DENIES PMH Surgeries: No Respiratory: No Cardiac: Yes Syncope Neurological: No : No Last Menstrual Period: October 07, 2022 Female Reproductive Disorders: Denies, Polycystic Ovarian Dis Sexually Transmitted Disease: No HIV/AIDS: No Genitourinary: No Gastrointestinal: No Musculoskeletal: No Endocrine: No HEENT: No Cancer: No Psychosocial: Yes Depression Integumentary: No Blood Disorders: No Adverse Reaction/Blood Tranf: No Family Medical History Parkinson's disease 19 FATHER Physical Exam Vital Signs Vital Signs - First Documented 10/27/22 10:32 Temp 36.7 Pulse 84 Resp 18 B/P (MAP) 121/71 (88) Pulse Ox 99 O2 Delivery Room Air Capillary Refill : Less Than 3 Seconds Height, Weight, BMI Height: 5'9.00" Weight: 184lbs. 9.0oz. 83.831133dh; 29.00 BMI Method:Stated General Appearance: No Apparent Distress, WD/WN HEENT: PERRL/EOMI, TMs Normal, Normal ENT Inspection, Pharynx Normal Neck: Full Range of Motion, Non Tender Respiratory: Lungs Clear, Normal Breath Sounds, No Accessory Muscle Use Cardiovascular: Regular Rate, Rhythm, No Edema, No Murmur Gastrointestinal: Non Tender, Soft; No Distended Extremity: Normal Inspection, No Pedal Edema Neurologic/Psychiatric: Alert, Oriented x3, No Motor/Sensory Deficits, Normal Mood/Affect Skin: Normal Color, Warm/Dry Progress/Results/Core Measures Suspected Sepsis SIRS Temperature: Pulse: 84 Respiratory Rate: 18 Laboratory Tests 10/27/22 10:45: White Blood Count 4.8 Blood Pressure 121 /71 Mean: 88 Laboratory Tests 10/27/22 10:45: Creatinine 0.97, Platelet Count 243, Total Bilirubin 0.6 Results/Orders Lab Results Laboratory Tests Test 10/27/22 10:45 Range/Units White Blood Count 4.8 4.3-11.0 10^3/uL Red Blood Count 4.56 3.80-5.11 10^6/uL Hemoglobin 10.2 L 11.5-16.0 g/dL Hematocrit 34 L 35-52 % Mean Corpuscular Volume 74 L 80-99 fL Mean Corpuscular Hemoglobin 22 L 25-34 pg Mean Corpuscular Hemoglobin Concent 30 L 32-36 g/dL Red Cell Distribution Width 15.8 H 10.0-14.5 % Platelet Count 243 130-400 10^3/uL Mean Platelet Volume 10.1 9.0-12.2 fL Immature Granulocyte % (Auto) 0 % Neutrophils (%) (Auto) 63 42-75 % Lymphocytes (%) (Auto) 28 12-44 % Monocytes (%) (Auto) 9 0-12 % Eosinophils (%) (Auto) 0 0-10 % Basophils (%) (Auto) 1 0-10 % Neutrophils # (Auto) 3.0 1.8-7.8 10^3/uL Lymphocytes # (Auto) 1.3 1.0-4.0 10^3/uL Monocytes # (Auto) 0.4 0.0-1.0 10^3/uL Eosinophils # (Auto) 0.0 0.0-0.3 10^3/uL Basophils # (Auto) 0.0 0.0-0.1 10^3/uL Immature Granulocyte # (Auto) 0.0 0.0-0.1 10^3/uL Sodium Level 140 135-145 MMOL/L Potassium Level 3.6 3.6-5.0 MMOL/L Chloride Level 107 98-107 MMOL/L Carbon Dioxide Level 23 21-32 MMOL/L Anion Gap 10 5-14 MMOL/L Blood Urea Nitrogen 13 7-18 MG/DL Creatinine 0.97 0.60-1.30 MG/DL Estimat Glomerular Filtration Rate 84 BUN/Creatinine Ratio 13 Glucose Level 97 70-105 MG/DL Calcium Level 9.6 8.5-10.1 MG/DL Corrected Calcium 9.2 8.5-10.1 MG/DL Total Bilirubin 0.6 0.1-1.0 MG/DL Aspartate Amino Transf (AST/SGOT) 23 5-34 U/L Alanine Aminotransferase (ALT/SGPT) 22 0-55 U/L Alkaline Phosphatase 82 40-136 U/L Total Protein 7.9 6.4-8.2 GM/DL Albumin 4.5 3.2-4.5 GM/DL Thyroid Stimulating Hormone (TSH) 1.24 0.35-4.94 UIU/ML Free Thyroxine 0.91 0.70-1.48 NG/DL Serum Test, Qualitative NEGATIVE NEGATIVE My Orders Orders - MORE TONG MD Cbc With Automated Diff (10/27/22 10:12) Comprehensive Metabolic Panel (10/27/22 10:12) Hcg,Qualitative Serum (10/27/22 10:12) Thyroid Stimulating Hormone (10/27/22 10:12) Free T4 (Free Thyroxine) (10/27/22 10:12) Ed Iv/Invasive Line Start (10/27/22 10:12) Ct Neck (Soft Tissue) W (10/27/22 10:12) Iohexol Injection (Omnipaque 350 Mg/Ml 1 (10/27/22 10:45) Received Contrast (Hold Metformin- Contr (10/27/22 10:45) Ns (Ivpb) (Sodium Chloride 0.9% Ivpb Bag (10/27/22 10:45) Vital Signs/I&O 10/27/22 10/27/22 10:32 13:04 Temp 36.7 Pulse 84 85 Resp 18 16 B/P (MAP) 121/71 (88) 104/78 Pulse Ox 99 97 O2 Delivery Room Air Room Air Capillary Refill : Less Than 3 Seconds Blood Pressure Mean: 88 Progress Note : Progress Note Labs were obtained, reviewed, and interpreted by me. CBC demonstrated mild microcytic anemia. CBC, CMP, TSH, free T4, and serum test were all unremarkable. CT soft tissues of the neck with contrast was obtained. Images were reviewed by me. There was a prominent left thyroid nodule without any obstruction to the airway by my interpretation. Radiologist's report was also reviewed as below. Patient was given reassurance and instructed to have close follow-up with Dr. Beaulieu for OP US evaluation. Diagnostic Imaging Diagonstic Imaging: CT Plain Films/CT/US/NM/MRI: other (Soft tissues neck) Comments CT soft tissues neck viewed by me and report reviewed. See report below: NAME: JUANJOSE NEGRETE [facility] REC#: [id number] PT STATUS: REG ER : 2000 PHYSICIAN: MORE TONG MD ADMIT DATE: 10/27/22/ER Draft Date of Exam:10/27/22 CT NECK (SOFT TISSUE) W PROCEDURE: CT neck soft tissue with contrast. TECHNIQUE: Multiple contiguous axial images were obtained through the neck after the administration of contrast. Auto Exposure Controls were utilized during the CT exam to meet ALARA standards for radiation dose reduction. INDICATION: Dysphagia, palpable neck mass. COMPARISON: None. DISCUSSION: Prominent left thyroid nodule with additional smaller nodule along the isthmus, indeterminate. Recommend nonemergent thyroid ultrasound to further evaluate. Lung apices are well-aerated. No aerodigestive tract abnormality identified. Tonsillar tissue is unremarkable. The visualized intracranial contents appear within normal limits. The orbits appear symmetrical. The sinuses and mastoid air cells are well-aerated. The bilateral parotid and submandibular glands appear within normal limits. Shotty-appearing lymph nodes are present. Carotid arteries bifurcate midneck and are unremarkable. No prevertebral soft tissue abnormality. No osseous abnormality. IMPRESSION: No acute abnormality identified within the neck. Dictated on workstation # [id number] Dict: 10/27/22 1206 Trans: 10/27/22 1210 [id number] Interpreted by: ÁLVARO HUFF MD Departure Impression Primary Impression: Thyroid nodule Additional Impression: Anemia Qualified Codes: D64.9 - Anemia, unspecified Disposition: 01 HOME, SELF-CARE Condition: Stable Departure-Patient Inst. Decision time for Depature: 12:53 Referrals: IGNACIO BEAULIEU MD (PCP/Family) Primary Care Physician Patient Instructions: Thyroid nodules Add. Discharge Instructions: Your CT scan has the appearance of a thyroid nodule. A thyroid ultrasound is recommended for further evaluation. Your labs were unremarkable except for mild anemia which should be discussed with Dr Beaulieu in follow-up. Please follow closely with Dr. Beaulieu. Call his office tomorrow to make an appointment. An ultrasound can be scheduled from his office. There is no evidence of obstruction of your airway on the CT scan. Obstruction of the airway or esophagus is not anticipated, but if you develop notable difficulty swallowing or breathing, please return to the emergency room promptly. Call Dr. Beaulieu with other questions or concerns. All discharge instructions reviewed with patient and/or family. Voiced understanding. Copy Copies To 1: IGNACIO BEAULIEU MD, JOSHUA T MD Oct 27, 2022 12:53
[2022-10-27 13:04] VITALS: BP 104/78
== END 2022-10-27 13:05 | disposition home or self-care (01) ==
LOC: EDUNIT# 10:08 → ER 10:10
DX: E04.1 Nontoxic single thyroid nodule (principal); D64.9 Anemia, unspecified
CPT/HCPCS: 36415; 70491; 80053; 84439; 84443; 84703; 85025

== ENCOUNTER → 2022-11-08 | Outpatient (CLI) | payer MEDICAID ==
--- NOTE | 2022-11-08 13:56 | Diagnostic Imaging Report ---
PROCEDURE: US Thyroid. TECHNIQUE: Multiple real-time grayscale images were obtained of the thyroid in various projections. INDICATION: Followup nodule in the left lobe of the thyroid. COMPARISON: 10/27/2022. FINDINGS: Both thyroid lobes demonstrate a mildly heterogeneous background echotexture. Color flow Doppler demonstrates normal and symmetric vascularity bilaterally. The right lobe measures 4.7 cm in length, 1.3 cm AP, and 1.7 cm transverse. The left lobe measures 4.7 cm in length, 1.3 cm AP, and 1.6 cm transverse. The isthmus measures 0.6 cm. A mostly solid heterogeneous nodule seen in the mid aspect of the left lobe of the thyroid measuring 1.4 x 1.0 x 1.3 cm. A nodule seen within the isthmus right of midline which is mostly cystic measuring 1.6 x 0.6 x 1.3 cm. Smaller cystic nodule is seen in the inferior pole of the right lobe of the thyroid measuring 0.5 cm. IMPRESSION: 1. Dominant nodule in the left lobe of the thyroid measuring 1.4 cm. This is consistent with a TI RADS 3 nodule. Recommend followup ultrasound of the thyroid in 12 months to ensure stability. 2. Mildly heterogeneous echogenicity of the thyroid. Recommend correlation with TSH levels. Dictated by: Dictated on workstation # [id number]
== END ==
LOC: RAD 11:29
PROVIDERS: ATTEND Family Medicine
DX: E04.1 Nontoxic single thyroid nodule (principal)
CPT/HCPCS: 76536